=== PATIENT | female | born 1945 | race Caucasian/White ===

== ENCOUNTER → 2017-07-23 | Outpatient (CLI) | payer OTHER, MEDICAID | LOC: FIMAGING 12:26 | PROVIDERS: ATTEND Internal Medicine | DX: Z12.31 Encounter for screening mammogram for malignant neoplasm of breast (principal); M51.36 Other intervertebral disc degeneration, lumbar region; M54.5 Low back pain; G89.4 Chronic pain syndrome | CPT/HCPCS: G0202 ==

== ENCOUNTER 2017-08-24 06:46 | Day surgery (SDC) | payer OTHER, MEDICAID ==
[2017-08-24 07:31] VITALS: PULSE 95
[2017-08-24] MEDS ORDERED: LR 1,000 ML IV ONE (07:31)
--- NOTE | 2017-08-24 07:35 | PDHPUP ---
History & Physical Update H&P update statement: This history and physical update is based on an assessment of the patient which was completed after admission or registration (within 24 hours), but prior to the surgery/procedure. H&P update: H&P reviewed & patient examined, no change in patient's condition since H&P completed
[2017-08-24] MEDS ORDERED: ceFAZolin 2 GM/DEXTROSE 100 ML IV ONE (09:00)
[2017-08-24] MEDS ORDERED: BUPIVACAINE 0.5% 30 ML SDV ONE (10:31)
--- NOTE | 2017-08-24 10:37 | PDANEPAE ---
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 ANE Past Medical History - Cardiovascular History Hx Hypertension: Yes Hx Arrhythmias: No Hx Chest Pain: No Hx Coronary Artery / Peripheral Vascular Disease: No Hx CHF / Valvular Disease: No Hx Palpitations: No Cardiovascular History Comment: no cp - Pulmonary History Hx COPD: No Hx Asthma/Reactive Airway Disease: No Hx Recent Upper Respiratory Infection: No Hx Oxygen in Use at Home: No Hx Sleep Apnea: Yes Pulmonary History Comment: occ sob when walking, DOES SOME STAIRS,. pt has had DVTs in the past,. on ASA to prevent - Neurologic History Hx Cerebrovascular Accident: No Hx Seizures: No Hx Dementia: No - Endocrine History Hx Diabetes: Yes Hypothyroid: No Obesity: moderate Endocrine History Comment: IDDM - Renal History Hx Renal Disorders: Yes Renal History Comment: stones young women. UTIs several years past - Liver History Hx Hepatic Disorders: No - Neurological & Psychiatric Hx Hx Neurological and Psychiatric Disorders: Yes Neurological / Psychiatric History Comment: anxiety, depression - Cancer History Hx Cancer: Yes Cancer History Comment: melanoma currently - Congenital Disorder History Hx Congenital Disorders: No - GI History Hx Gastrointestinal Disorders: Yes Gastrointestinal History Comment: bowel nicked 2013 during hernia surg. per pt. Ended up with colostomy, has been removed - Other Health History Other Health History: mild cataract R eye. no upper teeth, 5 teeth bottom - Chronic Pain History Chronic Pain: Yes (VENTRAL HERNIA) - Surgical History Prior Surgeries: multiple abd/bowel surg. Ileostomy&colostomy done, one bag. tonsils out young child. total hyst. 1986. umbilical and R inguinal hernia surg 04/30/13 leading to bowel issues. ileostomy and colostomy takedown 02/23 ANE Review of Systems Review of Systems: - Exercise capacity METS (RN): 3 METS - Systems Constitutional: Reports: no symptoms Cardiac: Reports: no symptoms, other (has to stop to catch breath when climbing 1 FOS, chronic) Respiratory: Reports: no symptoms ANE Patient History - Allergies Allergies/Adverse Reactions: No Known Allergies Allergy (Verified 08/24/17 07:36) - Home Medications Home medications: home medication list seen and reviewed Home Medications: Aspirin EC 81 mg (OTC) 03/22/16 [Last Taken Unknown] Atorvastatin Calcium 03/22/16 [Last Taken Unknown] Bentyl 20 MG (RX) 03/22/16 [Last Taken Unknown] Qynibbfo-Njlxzetxwxhlc-Gqrv Cp 03/22/16 [Last Taken Unknown] CALCIUM 03/22/16 [Last Taken Unknown] Citalopram 03/22/16 [Last Taken Unknown] Fluticasone Nasal 03/22/16 [Last Taken Unknown] Hydrocodon-Acetaminophen 5-325 03/22/16 [Last Taken Unknown] Hydrocortisone 1% cream (OTC) 03/22/16 [Last Taken Unknown] Levemir 03/22/16 [Last Taken Unknown] Losartan Potassium 03/22/16 [Last Taken Unknown] Meclizine HCl 03/22/16 [Last Taken Unknown] Metformin HCl 03/22/16 [Last Taken Unknown] Propranolol HCl 03/22/16 [Last Taken Unknown] Tylenol 03/22/16 [Last Taken Unknown] VITAMIN D 03/22/16 [Last Taken Unknown] Vitamin B-12 03/22/16 [Last Taken Unknown] traZODONE 03/22/16 [Last Taken Unknown] - NPO status NPO Since - Liquids (Date): 08/23/17 NPO Since - Liquids (Time): 23:00 NPO Since - Solids (Date): 08/23/17 NPO Since - Solids (Time): 23:00 - Anes Hx Anes Hx: no prior problems - Smoking Hx Smoking Status: Never smoked Marijuana use: No - Alcohol Use Alcohol Use: None - Family Anes Hx Family Anes Hx: none Family Hx Anesthesia Complications: none ANE Labs/Vital Signs - Vital Signs Blood Pressure: 161/91 Heart Rate: 95 Respiratory Rate: 14 O2 Sat (%): 96 Height: 144.78 cm Weight: 65.317 kg ANE Physical Exam - Airway Neck exam: FROM Mallampati Score: Class 3 Mouth exam: dentures - Pulmonary Pulmonary: clear to auscultation - Cardiovascular Cardiovascular: regular rate and rhythym - ASA Status ASA Status: III ANE Anesthesia Plan Anesthesia Plan: GA w LMA
[2017-08-24] MEDS ORDERED: DEXAMETHASONE 4 MG/ML VIAL ONE (10:56)
[2017-08-24] MEDS ORDERED: LIDOCAINE 2% 5 ML SDV ONE (10:56)
[2017-08-24] MEDS ORDERED: fentaNYL 100 MCG/2 ML INJ ONE ×2 (10:56→13:19)
[2017-08-24] MEDS ORDERED: PROPOFOL/EMULSION 500 MG/50 ML BOTTLE IV ONE (10:56)
[2017-08-24] MEDS ORDERED: PHENYLEPHRINE HCL 100 MCG/ML SYR ONE (11:37)
[2017-08-24 11:53] LABS: % IMMATURE GRANULYOCYTES 0.4 % (0.0-1.1); ABSOLUTE IMMATURE GRANULOCYTES 0.04 10^3/uL (0.00-0.10); ADD DIFF? NO; ADD MORPH? NO; ADD SCAN? NO; ATYPICAL LYMPHOCYTE FLAG 0 (0-99); FRAGMENT RBC FLAG 0 (0-99); HEMATOCRIT 36.5 % (38.0-47.0); HEMOGLOBIN 12.4 g/dL (12.6-16.3); LEFT SHIFT FLG 0 (0-99); LIPEMIA HEMOLYSIS FLAG 90 (0-99); MEAN CELL HEMOGLOBIN 29.7 pg (27.9-34.1); MEAN CELL VOLUME 87.3 fL (81.5-99.8); MEAN PLATELET VOLUME 10.7 fL (8.7-11.7); PLATELET CLUMPS FLAG 0 (0-99); PLATELET COUNT 259 10^3/uL (150-400); RED BLOOD CELL COUNT 4.18 10^6/uL (4.18-5.33); RED CELL DISTRIBUTION WIDTH 13.5 % (11.5-15.2)
[2017-08-24] MEDS ORDERED: ALBUTEROL 3 ML DEYVIAL IH PRN (12:04)
[2017-08-24] MEDS ORDERED: LR 500 ML IV PRN (12:04)
[2017-08-24] MEDS ORDERED: ACETAMINOPHEN 500 MG TAB PO PRN (12:04)
[2017-08-24] MEDS ORDERED: PROMETHAZINE HCL 25 MG/ML INJ IVP PRN (12:04)
[2017-08-24] MEDS ORDERED: NALOXONE HCL 0.4 MG/ML INJ IVP PRN ×2 (12:04)
[2017-08-24] MEDS ORDERED: HYDROCODONE/APAP 5/325 TAB PO PRN (12:04)
[2017-08-24] MEDS ORDERED: ONDANSETRON 4 MG/2 ML VIAL ONE (12:08)
--- NOTE | 2017-08-24 12:31 | POSTOPPROG ---
Post Op Note Date of Operation: 08/24/17 Surgeon: Evert Gordon Stone Operator: Monet ORTEZ Anesthesiologist: Dr. Stephen Anesthesia: GET(General Endotracheal) Pre-op Diagnosis: Right knee melanoma Post-op Diagnosis: same Indication: melanoma Procedure: Wide excision of right knee melanoma with SLN biopsy Findings: SLN x 2 Inf/Abcess present in the surg proc area at time of surgery?: No Depth: Deep Incisional (Fascial) EBL: Minimal Specimen(s): SLN x2 Right knee melanoma
--- NOTE | 2017-08-24 12:37 | POSTANESTH ---
Post Anesthetic Evaluation Cardiovascular Status: Normal, Stable Respiratory Status: Normal, Stable Level of Consciousness/Mental Status: Can Participate in Eval, Moderately Sleepy Pain Control: Adequate, Prn Tx Ordered Nausea/Vomiting Control: Adequate, Prn Tx Ordered Complications Possibly Related to Anesthesia: None Noted (Pt still sleepy, but able to rouse to name and touch. Denies pain and nausea at this time.)
[2017-08-24 12:42] LABS: ALANINE AMINOTRANSFERASE 30 IU/L (9-52); ALBUMIN 3.3 g/dL (3.5-5.0); ALKALINE PHOSPHATASE 66 IU/L (38-126); ANION GAP 8 mEq/L (8-16); ASPARTATE AMINOTRANSFERASE 27 IU/L (14-46); BILIRUBIN,TOTAL 0.9 mg/dL (0.1-1.4); CALCIUM 9.1 mg/dL (8.5-10.4); CARBON DIOXIDE 24 mEq/l (22-31); CHLORIDE 106 mEq/L (97-110); CREATININE 0.8 mg/dL (0.6-1.0); GLOMERULAR FILTRATION RATE > 60; GLUCOSE 158 mg/dL (70-100); POTASSIUM 4.7 mEq/L (3.5-5.2); SODIUM 138 mEq/L (134-144); TOTAL PROTEIN 5.8 g/dL (6.3-8.2)
[2017-08-24 13:17] VITALS: TEMP 98.1
[2017-08-24] MEDS: fentaNYL 100 MCG/2 ML INJ IVP PRN ×4 (13:23→13:54)
[2017-08-24 13:34] VITALS: BP 112/79; RESP 12
[2017-08-24] MEDS ORDERED: HYDROCODONE/APAP 5/325 TAB ONE (13:54)
[2017-08-24 15:56] VITALS: O2SAT 94
--- NOTE | 2017-08-28 14:29 | GOP ---
[f rep st] OPERATIVE REPORT DATE OF OPERATION: 08/24/2017 SURGEON: Evert Gordon MD SUPERVISOR CUSTOMER COMPLAINT SERVICE: Monet Feliz PA-C ANESTHESIOLOGIST: Merle Stephen MD PREOPERATIVE DIAGNOSIS: Melanoma of the right knee. POSTOPERATIVE DIAGNOSIS: Melanoma of the right knee. PROCEDURE PERFORMED: Wide excision of right knee melanoma with advancement flap closure and sentinel lymph node biopsy. FINDINGS: The patient was found to have some enlarged femoral nodes, but they did not appear to be i nvolved. Final path is pending. DESCRIPTION OF PROCEDURE: The patient was taken to the operating room where she received satisfactor y general endotracheal anesthesia by Dr. Stephen. She was placed in supine position, prepped and talon ped in the usual sterile fashion. Using the gamma probe, the femoral triangle was examined and a sen tinel node was identified. An oblique incision was made over that area. Dissection extended down th rough the subcutaneous tissue, through the superficial fascia. Two large nodes were dissected free, however, they did not appear to be pigmented or involved in any way. Hemostasis was obtained with he moclips and electrocautery and the nodes were both removed and sent to Pathology. The wound was clos ed with 3-0 Vicryl for the subcu, 4-0 Monocryl subcuticular stitch for the skin. The wound was infil trated with 0.5% Marcaine. Elliptical vertical incision was then made over the previous biopsy site. Wide excision was done with over 1.5 cm margin around the melanoma site. Full-thickness excision w as done down to the fascia. The specimen was marked and sent to Pathology. The flaps were mobilized on both sides, advanced and closed with interrupted 2-0 Vicryl sutures for the subcutaneous tissue a nd a 4-0 Monocryl subcuticular stitch for the skin. All layers were infiltrated with 0.5% Marcaine. The wounds were dressed. She tolerated the procedure well; taken to the recovery room in good condi tion. No complications. /[id number]/MODL
== END 2017-08-24 16:55 | disposition home or self-care (01) ==
LOC: FSGY 06:46
PROVIDERS: ATTEND Surgery
PROC: 07BH0ZZ Excision of Right Inguinal Lymphatic, Open Approach (ICD-10-PCS; principal; 2017-08-24 09:45)
PROC: 0HXKXZZ Transfer Right Lower Leg Skin, External Approach (ICD-10-PCS; principal; 2017-08-24 09:45)
PROC: 0HBKXZZ Excision of Right Lower Leg Skin, External Approach (ICD-10-PCS; principal; 2017-08-24 09:45)
PROC: 3E0W3KZ Introduction of Other Diagnostic Substance into Lymphatics, Percutaneous Approach (ICD-10-PCS; 2017-08-24 09:45)
DX: C43.71 Malignant melanoma of right lower limb, including hip (principal); D36.0 Benign neoplasm of lymph nodes; E11.9 Type 2 diabetes mellitus without complications; I10 Essential (primary) hypertension; G47.00 Insomnia, unspecified; F43.21 Adjustment disorder with depressed mood; M51.36 Other intervertebral disc degeneration, lumbar region; G89.4 Chronic pain syndrome; Z79.82 Long term (current) use of aspirin; Z86.718 Personal history of other venous thrombosis and embolism
CPT/HCPCS: 14020; 38500; 78195; A9520; J0690; J1100; J2370; J2405; J2704; J3010

== ENCOUNTER 2017-09-30 19:05 | Inpatient (IN) | payer OTHER, MEDICAID ==
--- NOTE | 2017-09-30 19:14 | EDPHY ---
H & P Time Seen by Provider: 09/30/17 19:05 HPI/ROS: CHIEF COMPLAINT: Abdominal pain, vomiting HISTORY OF PRESENT ILLNESS: The patient presents to the ED with a 1 day history of abdominal pain and vomiting. The patient has a history of multiple abdominal hernia surgeries. She reports history of a hysterectomy. She denies history of appendectomy, cholecystectomy or additional pelvic surgery. The patient did recently undergo a wide excision for a melanoma on her right knee. She reportedly had a lymph node biopsy in her groin which by her report demonstrated no pathologic disease. The patient does have a history of hypertension and diabetes. The patient complains of mild generalized abdominal pain in the ED today which she rates as a 5/10. She reported she had a loose watery bowel movement prior to arrival. The patient denies any fever, cough or congestion. REVIEW OF SYSTEMS: A comprehensive 10 point review of systems is otherwise negative aside from elements mentioned in the history of present illness. Source: Patient Exam Limitations: No limitations - Personal History Tetanus Vaccine Date: 04/28/13 - Medical/Surgical History Hx Asthma: No Hx Chronic Respiratory Disease: No Hx Diabetes: Yes Hx Cardiac Disease: No Hx Renal Disease: Yes Hx Cirrhosis: No Hx Alcoholism: No Hx HIV/AIDS: No Hx Splenectomy or Spleen Trauma: No Other PMH: hernia repair, bowel leak, ileostomy, JORDY, DM - Social History Smoking Status: Never smoked - Physical Exam Exam: General Appearance: Alert, no distress Eyes: Pupils equal and round no pallor or injection ENT, Mouth: Mucous membranes moist Respiratory: There are no retractions, lungs are clear to auscultation Cardiovascular: Regular rate and rhythm Gastrointestinal: Epigastrium and right upper quadrant Neurological: A&O, normal motor function, normal sensory exam, normal cranial nerves Skin: Warm and dry, no rashes Musculoskeletal: Neck is supple nontender Extremities: symmetrical, full range of motion Constitutional: Initial Vital Signs Temperature (C) 36.4 C 09/30/17 19:15 Heart Rate 102 H 09/30/17 19:15 Respiratory Rate 18 09/30/17 19:15 Blood Pressure 121/78 H 09/30/17 19:15 O2 Sat (%) 89 L 09/30/17 19:15 O2 Delivery Mode Room Air O2 (L/minute) 2 Allergies/Adverse Reactions: diphenhydramine [From Benadryl] Allergy (Verified 09/30/17 19:18) Home Medications: Medication Instructions Recorded Acetaminophen [Tylenol 325mg (*)] 325 mg PO Q6HRS PRN 03/22/16 Aspirin EC [Aspirin EC 81 mg (*)] 81 mg PO DAILY 03/22/16 Atorvastatin Calcium [Lipitor 40 40 mg PO HS 03/22/16 mg (*)] Cholecalciferol Vit D3 [Vitamin D3 2,000 units PO DAILY 03/22/16 2000 units tab (OTC)] Fluticasone Nasal [Flonase Nasal 1 sprays NASAL DAILY PRN 03/22/16 Driscoll] Insulin Detemir [Levemir] 10 unit SQ HS 03/22/16 Losartan Potassium [Cozaar 25 mg 25 mg PO DAILY 03/22/16 (*)] Meclizine HCl [Meclizine HCl 25 mg 25 mg PO Q6HRS PRN 03/22/16 (RX,OTC)] Propranolol HCl [Inderal 10mg (*)] 10 mg PO BID 03/22/16 Acetaminophen [Tylenol ES 500 mg 500 mg PO Q6HRS PRN tab 08/24/17 (*)] Herbals/Supplements -Info Only 1 ea PO DAILY 08/24/17 Hydrocodone/APAP 5/325 [Waldron 1 - 2 tab PO Q4HRS PRN tab 08/24/17 5/325 (*)] Loratadine 10 mg PO DAILY PRN 08/24/17 MIRTAZAPINE [Remeron 7.5 mg] 7.5 mg PO HS 08/24/17 Melatonin [Melatonin 3 MG (*)] 3 mg PO HS 08/24/17 Meloxicam 15 mg PO HS 08/24/17 Vitamin B Complex [B Complex] 1 each PO DAILY 08/24/17 metFORMIN HCL [Glucophage 500 mg 500 mg PO BIDMEAL 08/24/17 (*)] traMADol [Ultram 50 mg (*)] 50 mg PO Q4 PRN 08/24/17 Gabapentin 100 mg PO DAILY 09/30/17 Medical Decision Making - Diagnostics Imaging Results: Imaging Impressions Abdomen CT 09/30/17 20:02 Impression: Early versus partial small bowel obstruction, likely related to an adhesion. This patient might benefit from an NG tube. 2. No evidence for metastatic melanoma. 3. Stable polycystic liver disease and less dominant renal cysts since 2013. Results called and discussed with Satnam Albarado, at 09/30/2017 21:04 General information for patients regarding this examination can be found at [email or web address]. If you have questions or comments about this report, please contact me at [phone] (hospital) or [phone] (cell). ED Course/Re-evaluation: The patient presents to the ED with a 1 day history of generalized abdominal pain. The patient has tenderness to palpation in her right lower quadrant, left lower quadrant and hypogastric area. She has normal bowel sounds. She has no peritoneal signs. The patient had an IV established. She received a L of normal saline. She received 4 mg of IV Zofran. Given her agent tenderness, a CT scan of the abdomen pelvis was ordered by myself at 8:[address] scan of the abdomen pelvis does demonstrate an early small-bowel obstruction with a transition point the abdomen. NG tube has been placed. Consultation was made with Dr. Cornejo from the hospitalist service who will admit the patient primarily. Dr. Gonzalez from General surgery will consult. Differential Diagnosis: Differential diagnosis considered includes appendicitis, gastroenteritis, diverticulitis, metastatic disease, perforation, obstruction - Data Points Laboratory Results: Laboratory Results 09/30/17 19:10 09/30/17 19:10 09/30/17 09/30/17 09/30/17 19:40 19:31 19:10 WBC RBC Hgb POC Hgb 15.0 gm/dL gm/dL 15.0 gm/dL gm/dL (12.6-16.3) (12.6-16.3) Hct POC Hct 44 % % 44 % % (38-47) (38-47) MCV MCH MCHC RDW Plt Count MPV Neut % (Auto) Lymph % (Auto) [place] % (Auto) Eos % (Auto) Baso % (Auto) Nucleat RBC Rel Count Absolute Neuts (auto) Absolute Lymphs (auto) Absolute Monos (auto) Absolute Eos (auto) Absolute Basos (auto) Absolute Nucleated RBC Immature Gran % Immature Gran # POC Sodium 141 mEq/L mEq/L 138 mEq/L mEq/L (134-144) (134-144) Sodium 139 mEq/L mEq/L (134-144) POC Potassium 4.1 mEq/L mEq/L 6.4 mEq/L H* mEq/L (3.3-5.0) (3.3-5.0) Potassium 5.0 mEq/L mEq/L (3.5-5.2) POC Chloride 106 mEq/L mEq/L 104 mEq/L mEq/L (97-110) (97-110) Chloride 101 mEq/L mEq/L (97-110) Carbon Dioxide 28 mEq/l mEq/l (22-31) Anion Gap 10 mEq/L mEq/L (8-16) POC BUN 28 mg/dL H mg/dL 46 mg/dL H mg/dL (7-23) (7-23) BUN 27 mg/dL H mg/dL (7-23) Creatinine 0.9 mg/dL mg/dL (0.6-1.0) POC Creatinine 0.8 mg/dL mg/dL 1.0 mg/dL mg/dL (0.6-1.0) (0.6-1.0) Estimated GFR > 60 Glucose 177 mg/dL H mg/dL (70-100) POC Glucose 162 mg/dL H mg/dL 162 mg/dL H mg/dL (70-100) (70-100) Calcium 9.9 mg/dL mg/dL (8.5-10.4) Total Bilirubin 0.8 mg/dL mg/dL (0.1-1.4) Conjugated Bilirubin 0.5 mg/dL mg/dL (0.0-0.5) Unconjugated Bilirubin 0.3 mg/dL mg/dL (0.0-1.1) AST 24 IU/L IU/L (14-46) ALT 37 IU/L IU/L (9-52) Alkaline Phosphatase 95 IU/L IU/L (38-126) Total Protein 7.0 g/dL g/dL (6.3-8.2) Albumin 4.3 g/dL g/dL (3.5-5.0) Lipase 86 IU/L IU/L (23-300) 09/30/17 19:10 WBC 12.54 10^3/uL H 10^3/uL (3.80-9.50) RBC 5.21 10^6/uL 10^6/uL (4.18-5.33) Hgb 14.9 g/dL g/dL (12.6-16.3) POC Hgb Hct 45.6 % % (38.0-47.0) POC Hct MCV 87.5 fL fL (81.5-99.8) MCH 28.6 pg pg (27.9-34.1) MCHC 32.7 g/dL g/dL (32.4-36.7) RDW 13.5 % % (11.5-15.2) Plt Count 319 10^3/uL 10^3/uL (150-400) MPV 11.4 fL fL (8.7-11.7) Neut % (Auto) 88.9 % H % (39.3-74.2) Lymph % (Auto) 5.0 % L % (15.0-45.0) [place] % (Auto) 4.5 % % (4.5-13.0) Eos % (Auto) 0.6 % % (0.6-7.6) Baso % (Auto) 0.6 % % (0.3-1.7) Nucleat RBC Rel Count 0.0 % % (0.0-0.2) Absolute Neuts (auto) 11.14 10^3/uL H 10^3/uL (1.70-6.50) Absolute Lymphs (auto) 0.63 10^3/uL L 10^3/uL (1.00-3.00) Absolute Monos (auto) 0.57 10^3/uL 10^3/uL (0.30-0.80) Absolute Eos (auto) 0.08 10^3/uL 10^3/uL (0.03-0.40) Absolute Basos (auto) 0.07 10^3/uL 10^3/uL (0.02-0.10) Absolute Nucleated RBC 0.00 10^3/uL 10^3/uL (0-0.01) Immature Gran % 0.4 % % (0.0-1.1) Immature Gran # 0.05 10^3/uL 10^3/uL (0.00-0.10) POC Sodium Sodium POC Potassium Potassium POC Chloride Chloride Carbon Dioxide Anion Gap POC BUN BUN Creatinine POC Creatinine Estimated GFR Glucose POC Glucose Calcium Total Bilirubin Conjugated Bilirubin Unconjugated Bilirubin AST ALT Alkaline Phosphatase Total Protein Albumin Lipase Medications Given: Discontinued Medications Sodium Chloride (Ns) 1,000 mls @ 0 mls/hr IV EDNOW ONE; Wide Open PRN Reason: Protocol Stop: 09/30/17 19:37 Last Admin: 09/30/17 20:07 Dose: 1,000 mls Point of Care Test Results: 09/30/17 09/30/17 19:31 19:40 POC Sodium 138 141 POC Potassium 6.4 H* 4.1 POC Chloride 104 106 POC BUN 46 H 28 H POC Creatinine 1.0 0.8 POC Glucose 162 H 162 H Departure - Departure Disposition: [facility] Inpatient Acute Clinical Impression: Abdominal pain, Adynamic ileus Condition: Fair
[2017-09-30] MEDS ORDERED: NS 1,000 ML IV ONE (19:36)
[2017-09-30 19:42] LABS: % IMMATURE GRANULYOCYTES 0.4 % (0.0-1.1); ABSOLUTE IMMATURE GRANULOCYTES 0.05 10^3/uL (0.00-0.10); ADD DIFF? NO; ADD MORPH? NO; ADD SCAN? NO; ATYPICAL LYMPHOCYTE FLAG 0 (0-99); FRAGMENT RBC FLAG 0 (0-99); HEMATOCRIT 45.6 % (38.0-47.0); HEMOGLOBIN 14.9 g/dL (12.6-16.3); LEFT SHIFT FLG 10 (0-99); LIPEMIA HEMOLYSIS FLAG 80 (0-99); MEAN CELL HEMOGLOBIN 28.6 pg (27.9-34.1); MEAN CELL HEMOGLOBIN CONCENTR. 32.7 g/dL (32.4-36.7); MEAN CELL VOLUME 87.5 fL (81.5-99.8); MEAN PLATELET VOLUME 11.4 fL (8.7-11.7); PLATELET CLUMPS FLAG 10 (0-99); PLATELET COUNT 319 10^3/uL (150-400); RED BLOOD CELL COUNT 5.21 10^6/uL (4.18-5.33); RED CELL DISTRIBUTION WIDTH 13.5 % (11.5-15.2)
[2017-09-30 19:51] LABS: ALANINE AMINOTRANSFERASE 37 IU/L (9-52); ALBUMIN 4.3 g/dL (3.5-5.0); ALKALINE PHOSPHATASE 95 IU/L (38-126); ANION GAP 10 mEq/L (8-16); ASPARTATE AMINOTRANSFERASE 24 IU/L (14-46); BILIRUBIN,TOTAL 0.8 mg/dL (0.1-1.4); BILIRUBIN-CONJUGATED 0.5 mg/dL (0.0-0.5); BILIRUBIN-UNCONJUGATED 0.3 mg/dL (0.0-1.1); CALCIUM 9.9 mg/dL (8.5-10.4); CARBON DIOXIDE 28 mEq/l (22-31); CHLORIDE 101 mEq/L (97-110); CREATININE 0.9 mg/dL (0.6-1.0); GLOMERULAR FILTRATION RATE > 60; GLUCOSE 177 mg/dL (70-100); SODIUM 139 mEq/L (134-144)
[2017-09-30] MEDS ORDERED: IOPAMIDOL (ISOVUE-300) 100 ML BTL ONE ×2 (20:04→20:19)
[2017-09-30] MEDS ORDERED: HYDROmorphONE/DILAUDID 1 MG/ML INJ IVP PRN (21:09)
[2017-09-30] MEDS ORDERED: ONDANSETRON DISINTEGRATING 4 MG TAB PO PRN (21:09)
[2017-09-30] MEDS ORDERED: PROMETHAZINE HCL 25 MG/ML INJ IVP PRN (21:09)
[2017-09-30] MEDS ORDERED: ONDANSETRON 4 MG/2 ML VIAL IVP PRN (21:09)
[2017-09-30] MEDS ORDERED: LIDOCAINE 2% JELLY 5 ML TUBE ONE (21:14)
[2017-09-30] MEDS ORDERED: D50W 25 GM/50 ML SYR IVP PRN (21:41)
--- NOTE | 2017-09-30 21:45 | PDGENHP ---
History and Physical - Chief Complaint Acute abdominal pain - History of Present Illness Primary care provider: Dr. Divine Barillas Primary general surgeon: Dr. SPENCER Gordon HPI: 72-year-old female presenting with acute abdominal pain characterized as a 5/10 pain located diffusely throughout her abdomen, initially starting in the upper abdomen and then radiating inferiorly, associated with distension, vomiting of clear liquid, onset of symptoms on the morning of this presentation and duration persistent thereafter. The patient reports that since her symptoms began, she has been unable to tolerate solids and liquids. She did have 1 liquid stool on the day of this presentation, it was nonbloody, nonmelanotic. Prior to her onset of symptoms, she had otherwise been feeling well. She took her home medications the morning of this presentation, which included metformin, gabapentin, tramadol for her back pain. She reports that the pain is exacerbated by palpation, mildly alleviated by remaining still. History Information - Allergies/Home Medication List Allergies/Adverse Reactions: diphenhydramine [From Benadryl] Allergy (Verified 09/30/17 19:18) Home Medications: Acetaminophen [Tylenol 325mg (*)] 325 mg PO Q6HRS PRN 03/22/16 [Last Taken Unknown] Aspirin EC [Aspirin EC 81 mg (*)] 81 mg PO DAILY 03/22/16 [Last Taken 08/24/17] Atorvastatin Calcium [Lipitor 40 mg (*)] 40 mg PO HS 03/22/16 [Last Taken ] Cholecalciferol Vit D3 [Vitamin D3 2000 units tab (OTC)] 2,000 units PO DAILY [Last Taken 08/24/17] Fluticasone Nasal [Flonase Nasal [place]] 1 sprays NASAL DAILY PRN 03/22/16 [Last Taken Unknown] Insulin Detemir [Levemir] 10 unit SQ HS 03/22/16 [Last Taken 08/23/17 21:00 t-1] Losartan Potassium [Cozaar 25 mg (*)] 25 mg PO DAILY 03/22/16 [Last Taken 08:00] Meclizine HCl [Meclizine HCl 25 mg (RX,OTC)] 25 mg PO Q6HRS PRN 03/22/16 [Last Taken 08/23/17] Propranolol HCl [Inderal 10mg (*)] 10 mg PO BID 03/22/16 [Last Taken 08/24/17] Herbals/Supplements -Info Only 1 ea PO DAILY 08/24/17 [Last Taken Unknown] Loratadine 10 mg PO DAILY PRN 08/24/17 [Last Taken Unknown] MIRTAZAPINE [Remeron 7.5 mg] 7.5 mg PO HS 08/24/17 [Last Taken 08/23/17] Melatonin [Melatonin 3 MG (*)] 3 mg PO HS 08/24/17 [Last Taken 08/23/17] Meloxicam 15 mg PO HS 08/24/17 [Last Taken 08/23/17] Vitamin B Complex [B Complex] 1 each PO DAILY 08/24/17 [Last Taken 08/24/17] metFORMIN HCL [Glucophage 500 mg (*)] 500 mg PO BIDMEAL 08/24/17 [Last Taken ] traMADol [Ultram 50 mg (*)] 50 mg PO Q4 PRN 08/24/17 [Last Taken 08/23/17] Gabapentin 100 mg PO DAILY 09/30/17 [Last Taken Unknown] I have personally reviewed and updated: family history, medical history, social history, surgical history - Past Medical History Additional medical history: Melanoma right knee. Hypertension. Diabetes. Recurrent ventral hernias. Depression and insomnia - Surgical History Additional surgical history: Numerous ventral hernia repairs with resultant colostomy, ileostomy, reversal in 2013 - Family History Additional family history: Sibling with CVA - Social History Smoking Status: Never smoked Alcohol Use: None Drug Use: None Additional social history: Resides at [facility] Review of Systems Review of Systems: ROS: 10pt was reviewed & negative except for what was stated in HPI & below Gastrointestinal: Reports: vomitting, abdominal pain, nausea Physical Exam Physical Exam: Temp Pulse Resp BP Pulse Ox 36.4 C 102 H 18 121/78 H 93 09/30/17 19:15 09/30/17 19:15 09/30/17 19:15 09/30/17 19:15 09/30/17 19:38 Constitutional: no apparent distress, obese, uncomfortable, No not in pain ( Mild pain) Eyes: PERRL, anicteric sclera, EOMI Ears, Nose, Mouth, Throat: hearing normal, other (Tacky mucous membranes) Cardiovascular: tachycardia, No systolic murmur, No irregularly irregular, No edema Respiratory: no respiratory distress, no rales or rhonchi, clear to auscultation Gastrointestinal: normoactive bowel sounds, tenderness (Moderate diffusely throughout), guarding, distension (Moderate) Skin: warm, normal color, No rash Neurologic: AAOx3, sensation intact bilaterally, No weakness (Motor 5/5 bilateral lower extremities) Psychiatric: interacting appropriately, not anxious, not encephalopathic, thought process linear Lab Data & Imaging Review 09/30/17 19:10 09/30/17 19:10 WBC 12.54 10^3/uL (3.80-9.50) H 09/30/17 19:10 RBC 5.21 10^6/uL (4.18-5.33) 09/30/17 19:10 Hgb 14.9 g/dL (12.6-16.3) 09/30/17 19:10 POC Hgb 15.0 gm/dL (12.6-16.3) 09/30/17 19:40 Hct 45.6 % (38.0-47.0) 09/30/17 19:10 POC Hct 44 % (38-47) 09/30/17 19:40 MCV 87.5 fL (81.5-99.8) 09/30/17 19:10 MCH 28.6 pg (27.9-34.1) 09/30/17 19:10 MCHC 32.7 g/dL (32.4-36.7) 09/30/17 19:10 RDW 13.5 % (11.5-15.2) 09/30/17 19:10 Plt Count 319 10^3/uL (150-400) 09/30/17 19:10 MPV 11.4 fL (8.7-11.7) 09/30/17 19:10 Neut % (Auto) 88.9 % (39.3-74.2) H 09/30/17 19:10 Lymph % (Auto) 5.0 % (15.0-45.0) L 09/30/17 19:10 [place] % (Auto) 4.5 % (4.5-13.0) 09/30/17 19:10 Eos % (Auto) 0.6 % (0.6-7.6) 09/30/17 19:10 Baso % (Auto) 0.6 % (0.3-1.7) 09/30/17 19:10 Nucleat RBC Rel Count 0.0 % (0.0-0.2) 09/30/17 19:10 Absolute Neuts (auto) 11.14 10^3/uL (1.70-6.50) H 09/30/17 19:10 Absolute Lymphs (auto) 0.63 10^3/uL (1.00-3.00) L 09/30/17 19:10 Absolute Monos (auto) 0.57 10^3/uL (0.30-0.80) 09/30/17 19:10 Absolute Eos (auto) 0.08 10^3/uL (0.03-0.40) 09/30/17 19:10 Absolute Basos (auto) 0.07 10^3/uL (0.02-0.10) 09/30/17 19:10 Absolute Nucleated RBC 0.00 10^3/uL (0-0.01) 09/30/17 19:10 Immature Gran % 0.4 % (0.0-1.1) 09/30/17 19:10 Immature Gran # 0.05 10^3/uL (0.00-0.10) 09/30/17 19:10 POC Sodium 141 mEq/L (134-144) 09/30/17 19:40 Sodium 139 mEq/L (134-144) 09/30/17 19:10 POC Potassium 4.1 mEq/L (3.3-5.0) 09/30/17 19:40 Potassium 5.0 mEq/L (3.5-5.2) 09/30/17 19:10 POC Chloride 106 mEq/L (97-110) 09/30/17 19:40 Chloride 101 mEq/L (97-110) 09/30/17 19:10 Carbon Dioxide 28 mEq/l (22-31) 09/30/17 19:10 Anion Gap 10 mEq/L (8-16) 09/30/17 19:10 POC BUN 28 mg/dL (7-23) H 09/30/17 19:40 BUN 27 mg/dL (7-23) H 09/30/17 19:10 Creatinine 0.9 mg/dL (0.6-1.0) 09/30/17 19:10 POC Creatinine 0.8 mg/dL (0.6-1.0) 09/30/17 19:40 Estimated GFR > 60 09/30/17 19:10 Glucose 177 mg/dL (70-100) H 09/30/17 19:10 POC Glucose 162 mg/dL (70-100) H 09/30/17 19:40 Calcium 9.9 mg/dL (8.5-10.4) 09/30/17 19:10 Total Bilirubin 0.8 mg/dL (0.1-1.4) 09/30/17 19:10 Conjugated Bilirubin 0.5 mg/dL (0.0-0.5) 09/30/17 19:10 Unconjugated Bilirubin 0.3 mg/dL (0.0-1.1) 09/30/17 19:10 AST 24 IU/L (14-46) 09/30/17 19:10 ALT 37 IU/L (9-52) 09/30/17 19:10 Alkaline Phosphatase 95 IU/L (38-126) 09/30/17 19:10 Total Protein 7.0 g/dL (6.3-8.2) 09/30/17 19:10 Albumin 4.3 g/dL (3.5-5.0) 09/30/17 19:10 Lipase 86 IU/L (23-300) 09/30/17 19:10 Visualized and Interpreted imaging results: Yes Interpretation: Abdominal CT demonstrating early small-bowel obstruction with transition point in the left abdomen, polycystic liver Assessment & Plan Assessment: 72-year-old female presenting with acute small bowel obstruction Plan: 1. Small bowel obstruction. Acute, new problem this provider, further workup will be indicated. Present on abdominal CT, consistent with her abdominal presenting symptoms and physical exam findings, most likely secondary to adhesions with her numerous previous ventral hernia repair surgeries -discussed with Dr. Bhavesh Gonzalez in the emergency department, he recommends NG tube placement, remain NPO, will hold on surgery at this juncture and gauge clinical progress -IV pain medications, supportive IV antiemetics, continue IV fluids -monitor serum electrolytes and renal function 2. Diabetes mellitus type 2. Patient took metformin this morning, hold further metformin, hold Levemir given her oral diet is uncertain this time -low-dose insulin sliding scale with q.6 hours glucose checks 3. Hypertension. Chronic, hold patient's ARB and propranolol given that she currently has no oral intake 4. Systemic inflammatory response syndrome. Tachycardic and leukocytosis, secondary to stress demargination in the setting of above, no indication of infection -leukocytosis most likely secondary to stress response in the setting of pain, reviewed outside records including 08/24/2017 most recent CBC demonstrating a white blood cell count of 8900, indicating the patient does not have chronic leukocytosis outside of acute episodes of care -continue to monitor CBC 5. Depression and insomnia. Reviewed outside records including 08/01/[address] Divine Barillas, she describes patient's recent transition from citalopram and trazodone to mirtazapine, patient currently on 15 mg from an initial dose of 7.5, tolerating well -will be holding mirtazapine tonight given NPO status, reinitiate as soon as possible Diet. NPO, IV fluids Prophylaxis. High risk patient, SCDs, hold pharm given potential of surgery Code. Full per patient, her cousin Briseida Zhou is her MD POA Disposition. Anticipated discharge uncertain this time, anticipated length stay greater than 48 hours for reasonable medical necessity including acute small bowel obstruction requiring NPO status, IV fluids, nasogastric tube, IV pain and antiemetic medications.
[2017-09-30] MEDS ORDERED: LIDOCAINE 2% JELLY 5 ML TUBE TP ONE (21:47)
[2017-09-30] MEDS ORDERED: HYDROmorphONE/DILAUDID 1 MG/ML INJ IVP ONE (21:48)
--- NOTE | 2017-09-30 21:55 | PDGENHP ---
History and Physical - Chief Complaint abdominal pain with vomiting - History of Present Illness 72yo female well known to my partner Dr Gordon presents with acute onset abdominal pain since 1630 today. Patient was in her usual state of health, awoke , ate breakfast and lunch without issue and at the above time began to have progressive, colicky abdominal pain which was accompanied by nausea and vomiting. Because of the precipitous nature of events, she presented here for workup. Currently, she endorses pain but less so than previous. She doesnt feel nauseated and she denies fevers or chills. History Information - Allergies/Home Medication List Allergies/Adverse Reactions: diphenhydramine [From Benadryl] Allergy (Verified 09/30/17 19:18) Home Medications: Acetaminophen [Tylenol 325mg (*)] 325 mg PO Q6HRS PRN 03/22/16 [Last Taken Unknown] Aspirin EC [Aspirin EC 81 mg (*)] 81 mg PO DAILY 03/22/16 [Last Taken 08/24/17] Atorvastatin Calcium [Lipitor 40 mg (*)] 40 mg PO HS 03/22/16 [Last Taken ] Cholecalciferol Vit D3 [Vitamin D3 2000 units tab (OTC)] 2,000 units PO DAILY [Last Taken 08/24/17] Fluticasone Nasal [Flonase Nasal [place]] 1 sprays NASAL DAILY PRN 03/22/16 [Last Taken Unknown] Insulin Detemir [Levemir] 10 unit SQ HS 03/22/16 [Last Taken 08/23/17 21:00 t-1] Losartan Potassium [Cozaar 25 mg (*)] 25 mg PO DAILY 03/22/16 [Last Taken 08:00] Meclizine HCl [Meclizine HCl 25 mg (RX,OTC)] 25 mg PO Q6HRS PRN 03/22/16 [Last Taken 08/23/17] Propranolol HCl [Inderal 10mg (*)] 10 mg PO BID 03/22/16 [Last Taken 08/24/17] Herbals/Supplements -Info Only 1 ea PO DAILY 08/24/17 [Last Taken Unknown] Loratadine 10 mg PO DAILY PRN 08/24/17 [Last Taken Unknown] MIRTAZAPINE [Remeron 7.5 mg] 7.5 mg PO HS 08/24/17 [Last Taken 08/23/17] Melatonin [Melatonin 3 MG (*)] 3 mg PO HS 08/24/17 [Last Taken 08/23/17] Meloxicam 15 mg PO HS 08/24/17 [Last Taken 08/23/17] Vitamin B Complex [B Complex] 1 each PO DAILY 08/24/17 [Last Taken 08/24/17] metFORMIN HCL [Glucophage 500 mg (*)] 500 mg PO BIDMEAL 08/24/17 [Last Taken ] traMADol [Ultram 50 mg (*)] 50 mg PO Q4 PRN 08/24/17 [Last Taken 08/23/17] Gabapentin 100 mg PO DAILY 09/30/17 [Last Taken Unknown] I have personally reviewed and updated: family history, medical history, social history, surgical history - Past Medical History Additional medical history: Melanoma right knee. Hypertension. Diabetes. Recurrent ventral hernias. Depression and insomnia - Surgical History Additional surgical history: Numerous ventral hernia repairs with resultant colostomy, ileostomy, reversal in 2013 - Family History Additional family history: Sibling with CVA - Social History Smoking Status: Never smoked Alcohol Use: None Drug Use: None Additional social history: Resides at [facility] Review of Systems Review of Systems: ROS: 10pt was reviewed & negative except for what was stated in HPI & below Physical Exam Physical Exam: Temp Pulse Resp BP Pulse Ox 36.4 C 102 H 18 121/78 H 93 09/30/17 19:15 09/30/17 19:15 09/30/17 19:15 09/30/17 19:15 09/30/17 19:38 Constitutional: no apparent distress, appears nourished, not in pain Eyes: PERRL, anicteric sclera, EOMI Ears, Nose, Mouth, Throat: moist mucous membranes, hearing normal, ears appear normal, no oral mucosal ulcers Cardiovascular: regular rate and rhythym, no murmur, rub, or gallop, No edema Respiratory: no respiratory distress, no rales or rhonchi, clear to auscultation Gastrointestinal: other (minimally distended, has hypoactive bowel sounds, many abdominal scars. No rebound or scarring ) Genitourinary: no bladder fullness, no bladder tenderness Skin: warm, normal color, no rashes or abrasions, no fluctuance, no induration, No mottled Musculoskeletal: full muscle strength, no muscle tenderness, normal joint ROM, no joint effusions Neurologic: AAOx3, sensation intact bilaterally, No weakness, No numbness Psychiatric: interacting appropriately, not anxious, not encephalopathic, thought process linear Lymph, Heme, Immunologic: no cervical LAD, no supraclavicular LAD Lab Data & Imaging Review 09/30/17 19:10 09/30/17 19:10 WBC 12.54 10^3/uL (3.80-9.50) H 09/30/17 19:10 RBC 5.21 10^6/uL (4.18-5.33) 09/30/17 19:10 Hgb 14.9 g/dL (12.6-16.3) 09/30/17 19:10 POC Hgb 15.0 gm/dL (12.6-16.3) 09/30/17 19:40 Hct 45.6 % (38.0-47.0) 09/30/17 19:10 POC Hct 44 % (38-47) 09/30/17 19:40 MCV 87.5 fL (81.5-99.8) 09/30/17 19:10 MCH 28.6 pg (27.9-34.1) 09/30/17 19:10 MCHC 32.7 g/dL (32.4-36.7) 09/30/17 19:10 RDW 13.5 % (11.5-15.2) 09/30/17 19:10 Plt Count 319 10^3/uL (150-400) 09/30/17 19:10 MPV 11.4 fL (8.7-11.7) 09/30/17 19:10 Neut % (Auto) 88.9 % (39.3-74.2) H 09/30/17 19:10 Lymph % (Auto) 5.0 % (15.0-45.0) L 09/30/17 19:10 [place] % (Auto) 4.5 % (4.5-13.0) 09/30/17 19:10 Eos % (Auto) 0.6 % (0.6-7.6) 09/30/17 19:10 Baso % (Auto) 0.6 % (0.3-1.7) 09/30/17 19:10 Nucleat RBC Rel Count 0.0 % (0.0-0.2) 09/30/17 19:10 Absolute Neuts (auto) 11.14 10^3/uL (1.70-6.50) H 09/30/17 19:10 Absolute Lymphs (auto) 0.63 10^3/uL (1.00-3.00) L 09/30/17 19:10 Absolute Monos (auto) 0.57 10^3/uL (0.30-0.80) 09/30/17 19:10 Absolute Eos (auto) 0.08 10^3/uL (0.03-0.40) 09/30/17 19:10 Absolute Basos (auto) 0.07 10^3/uL (0.02-0.10) 09/30/17 19:10 Absolute Nucleated RBC 0.00 10^3/uL (0-0.01) 09/30/17 19:10 Immature Gran % 0.4 % (0.0-1.1) 09/30/17 19:10 Immature Gran # 0.05 10^3/uL (0.00-0.10) 09/30/17 19:10 POC Sodium 141 mEq/L (134-144) 09/30/17 19:40 Sodium 139 mEq/L (134-144) 09/30/17 19:10 POC Potassium 4.1 mEq/L (3.3-5.0) 09/30/17 19:40 Potassium 5.0 mEq/L (3.5-5.2) 09/30/17 19:10 POC Chloride 106 mEq/L (97-110) 09/30/17 19:40 Chloride 101 mEq/L (97-110) 09/30/17 19:10 Carbon Dioxide 28 mEq/l (22-31) 09/30/17 19:10 Anion Gap 10 mEq/L (8-16) 09/30/17 19:10 POC BUN 28 mg/dL (7-23) H 09/30/17 19:40 BUN 27 mg/dL (7-23) H 09/30/17 19:10 Creatinine 0.9 mg/dL (0.6-1.0) 09/30/17 19:10 POC Creatinine 0.8 mg/dL (0.6-1.0) 09/30/17 19:40 Estimated GFR > 60 09/30/17 19:10 Glucose 177 mg/dL (70-100) H 09/30/17 19:10 POC Glucose 162 mg/dL (70-100) H 09/30/17 19:40 Calcium 9.9 mg/dL (8.5-10.4) 09/30/17 19:10 Total Bilirubin 0.8 mg/dL (0.1-1.4) 09/30/17 19:10 Conjugated Bilirubin 0.5 mg/dL (0.0-0.5) 09/30/17 19:10 Unconjugated Bilirubin 0.3 mg/dL (0.0-1.1) 09/30/17 19:10 AST 24 IU/L (14-46) 09/30/17 19:10 ALT 37 IU/L (9-52) 09/30/17 19:10 Alkaline Phosphatase 95 IU/L (38-126) 09/30/17 19:10 Total Protein 7.0 g/dL (6.3-8.2) 09/30/17 19:10 Albumin 4.3 g/dL (3.5-5.0) 09/30/17 19:10 Lipase 86 IU/L (23-300) 09/30/17 19:10 Visualized and Interpreted imaging results: Yes Interpretation: CT: couple of fluid filled, dilated loops, no free air or fluid. Stomach with decent amt of fluid in it. Assessment & Plan Assessment: Abdominal pain (Acute) Adynamic ileus (Acute) Plan: 72yo female with many previous abdominal surgeries with what appears to be early partial SBO - Discussed the natural course of bowel obstruction with the patient. She is hesitant to agree to NGT but understands that it will help and is in favor. Im hoping hydration and GI decompression will be successful as the patient likely has hostile abdomen given her many previous, difficult surgeries. Will discuss with Dr Gordon tomorrow.
[2017-09-30 22:24] LABS: COLOR YELLOW; LEUKOCYTE ESTERASE,URINE NEGATIVE (NEGATIVE); NITRITE,URINE NEGATIVE (NEGATIVE)
[2017-09-30] MEDS ORDERED: FLUTICASONE NASAL 120 SPRAYS/16 GM MDI EACHNARE PRN (22:36)
[2017-09-30] MEDS: NS 1,000 ML IV SCH (23:31)
[2017-10-01] MEDS: INSULIN REGULAR HUMAN 100 UNIT/ML SC SCH ×4 (01:19→17:51)
[2017-10-01 05:09] LABS: % IMMATURE GRANULYOCYTES 0.3 % (0.0-1.1); ABSOLUTE IMMATURE GRANULOCYTES 0.03 10^3/uL (0.00-0.10); ADD DIFF? NO; ADD MORPH? NO; ADD SCAN? NO; ATYPICAL LYMPHOCYTE FLAG 0 (0-99); FRAGMENT RBC FLAG 0 (0-99); HEMATOCRIT 34.3 % (38.0-47.0); HEMOGLOBIN 11.8 g/dL (12.6-16.3); LEFT SHIFT FLG 30 (0-99); LIPEMIA HEMOLYSIS FLAG 90 (0-99); MEAN CELL HEMOGLOBIN 29.6 pg (27.9-34.1); MEAN CELL HEMOGLOBIN CONCENTR. 34.4 g/dL (32.4-36.7); MEAN PLATELET VOLUME 10.7 fL (8.7-11.7); PLATELET CLUMPS FLAG 10 (0-99); PLATELET COUNT 223 10^3/uL (150-400); RED BLOOD CELL COUNT 3.99 10^6/uL (4.18-5.33); RED CELL DISTRIBUTION WIDTH 13.7 % (11.5-15.2)
[2017-10-01 05:28] LABS: ANION GAP 7 mEq/L (8-16); CALCIUM 8.2 mg/dL (8.5-10.4); CARBON DIOXIDE 27 mEq/l (22-31); CHLORIDE 109 mEq/L (97-110); CREATININE 0.7 mg/dL (0.6-1.0); GLOMERULAR FILTRATION RATE > 60; GLUCOSE 97 mg/dL (70-100); MAGNESIUM 1.5 mg/dL (1.6-2.3); POTASSIUM 4.3 mEq/L (3.5-5.2); SODIUM 143 mEq/L (134-144)
[2017-10-01] MEDS: ACETAMINOPHEN 650 MG SUPP PR PRN ×3 (06:28→21:17)
--- NOTE | 2017-10-01 09:13 | SOAPPROG ---
SOAP Progress Note Assessment/Plan: Assessment: PT WITH POSSIBLE SBO IMPROVED WITH NG ABD SOFT, NONTENDER WITH MULTIPLE SURGICAL SCARS BUT NO HERNIAS/ + BS, - FLATUS NG OUTPUT MODERATE Plan:CONTINUE OBS, NG IVs, FU 2-WAY 10/01/17 09:11 Objective: Vital Signs Temp Pulse Resp BP Pulse Ox 36.9 C 94 18 117/74 97 10/01/17 07:23 10/01/17 07:23 10/01/17 07:23 10/01/17 07:23 10/01/17 07:23 Laboratory Results 10/01/17 04:57 10/01/17 04:57 09/30/17 10/01/17 10/02/17 05:59 05:59 05:59 Intake Total 1000 656 Output Total 475 125 Balance 525 531 ICD10 Worksheet Patient Problems: Problems Problem Status Onset Abdominal pain Acute Adynamic ileus Acute Diabetes Acute Headache Acute
[2017-10-01] MEDS: NS 1,000 ML IV SCH (09:16)
[2017-10-01] MEDS: PROPRANOLOL HCL 10 MG TAB PO SCH (09:20)
--- NOTE | 2017-10-01 09:59 | PDMN ---
Medical Necessity Medical necessity: Patient meets INPT criteria per physician note and MCG M- 210 Intestinal Obstruction (presents w/acute abd pain, abd distention, vomiting ; early SBO on CT; surgical consult; anticipated LOS > 2 midnights for bowel rest/NG tube/IV hydration/IV antiemetics and pain control as needed.)
[2017-10-01] MEDS ORDERED: D10W 250 ML PRN HYPOGLYCEMIA IV (10:00)
[2017-10-01] MEDS: AZITHROMYCIN IV 500 MG in D5W 250 ML IV SCH (13:27)
[2017-10-01] MEDS: METOCLOPRAMIDE 10 MG/2 ML VIAL IVP PRN ×2 (14:30→21:13)
--- NOTE | 2017-10-01 15:04 | ASMTCMCOM ---
CM Note CM Note Notes: Pt resides at [facility], [facility] will need to complete on-site assessment in order to approve her return, [facility] contact is Kayla [phone]. CM to follow. Date Signed: 10/01/2017 03:03 PM Electronically Signed By:MEIR Conn
[2017-10-01] MEDS ORDERED: TEARS/DEXTRAN 70/HYPROMELLOSE 15 ML OPHT.BTL EACHEYE PRN (15:36)
--- NOTE | 2017-10-01 17:29 | HOSPPROG ---
Hospitalist Progress Note Assessment/Plan: # Small bowel obstruction. Acute, abdominal CT, (persoanlly reviewed and interpreted) confirm SBO - pain improved overnight with NGT - cont NGT - abd xray - cont IVF and NPO - cont IV pain meds - Dr. Gordon following for decisions regarding OR # ? pulmonary infiltrates on abd xray - pt with cough prior to presentation- oxygen saturations 95% on 3L - start empiric abx - PA/lateral CXR to assist with duration of treatment # Diabetes mellitus type 2. -hold Levemir given her oral diet is uncertain this time -low-dose insulin sliding scale with q.6 hours glucose checks # Hypertension. Chronic, hold patient's ARB and propranolol given that she currently has no oral intake # Systemic inflammatory response syndrome.- improved with IVF and pain meds -leukocytosis most likely secondary to stress response in the setting of pain,- query whether realted to pulmonary finding on abd xray - repeat CXR # Depression and insomnia-l -will be holding mirtazapine given NPO status, reinitiate as soon as possible Diet. NPO, IV fluids Prophylaxis. High risk patient, SCDs, hold pharm given potential of surgery Code. Full per patient, her cousin Briseida Zhou is her MD POA Dispo - anticipated length stay greater than 48 hours for reasonable medical necessity including acute small bowel obstruction requiring NPO status, IV fluids, nasogastric tube, IV pain and antiemetic medications. I have discussed the case with Dr. Gordon he will follow abd film and make recs regarding OR Subjective: very worried about returning to OR Objective: Vital Signs Temp Pulse Resp BP Pulse Ox 36.8 C 106 H 16 126/78 H 91 L 10/01/17 15:11 10/01/17 15:11 10/01/17 15:11 10/01/17 15:11 10/01/17 15:11 Laboratory Results 10/01/17 04:57 10/01/17 04:57 09/30/17 10/01/17 10/02/17 05:59 05:59 05:59 Intake Total 1000 656 Output Total 475 125 Balance 525 531 - Physical Exam Constitutional: no apparent distress Ears, Nose, Mouth, Throat: other (NGT) Cardiovascular: regular rate and rhythym Respiratory: no respiratory distress Gastrointestinal: normoactive bowel sounds, tenderness, No guarding, No rebound Genitourinary: no bladder fullness Skin: warm Musculoskeletal: No asymmetric calves Neurologic: AAOx3 Psychiatric: interacting appropriately Lymph, Heme, Immunologic: no cervical LAD ICD10 Worksheet Patient Problems: Problems Problem Status Onset Abdominal pain Acute Adynamic ileus Acute Diabetes Acute Headache Acute
[2017-10-01] MEDS: PHENOL 177 ML THROAT SPRAY PO PRN ×3 (18:13→22:19)
[2017-10-01] MEDS: CEPACOL LOZENGE PO PRN ×2 (18:13→22:22)
[2017-10-01] MEDS: GABAPENTIN 300 MG CAP PO SCH (21:08)
[2017-10-01] MEDS: MIRTAZAPINE 15 MG TAB PO SCH (21:08)
[2017-10-02] MEDS: NS 1,000 ML IV SCH ×2 (00:30→17:51)
[2017-10-02] MEDS: PHENOL 177 ML THROAT SPRAY PO PRN ×4 (00:33→18:54)
[2017-10-02] MEDS: INSULIN REGULAR HUMAN 100 UNIT/ML SC SCH ×4 (01:03→17:51)
[2017-10-02] MEDS: CEPACOL LOZENGE PO PRN ×4 (05:10→18:54)
[2017-10-02 05:22] LABS: % IMMATURE GRANULYOCYTES 0.6 % (0.0-1.1); ABSOLUTE IMMATURE GRANULOCYTES 0.06 10^3/uL (0.00-0.10); ADD DIFF? NO; ADD MORPH? NO; ADD SCAN? NO; ATYPICAL LYMPHOCYTE FLAG 0 (0-99); FRAGMENT RBC FLAG 0 (0-99); HEMATOCRIT 35.3 % (38.0-47.0); HEMOGLOBIN 11.9 g/dL (12.6-16.3); LEFT SHIFT FLG 0 (0-99); LIPEMIA HEMOLYSIS FLAG 80 (0-99); MEAN CELL HEMOGLOBIN 28.9 pg (27.9-34.1); MEAN CELL HEMOGLOBIN CONCENTR. 33.7 g/dL (32.4-36.7); MEAN CELL VOLUME 85.7 fL (81.5-99.8); MEAN PLATELET VOLUME 11.1 fL (8.7-11.7); PLATELET CLUMPS FLAG 0 (0-99); PLATELET COUNT 252 10^3/uL (150-400); RED BLOOD CELL COUNT 4.12 10^6/uL (4.18-5.33); RED CELL DISTRIBUTION WIDTH 13.8 % (11.5-15.2)
[2017-10-02] MEDS: METOCLOPRAMIDE 10 MG/2 ML VIAL IVP PRN (05:36)
[2017-10-02 05:46] LABS: ANION GAP 12 mEq/L (8-16); CALCIUM 8.3 mg/dL (8.5-10.4); CARBON DIOXIDE 24 mEq/l (22-31); CHLORIDE 105 mEq/L (97-110); CREATININE 0.7 mg/dL (0.6-1.0); GLOMERULAR FILTRATION RATE > 60; GLUCOSE 114 mg/dL (70-100); MAGNESIUM 1.7 mg/dL (1.6-2.3); POTASSIUM 3.8 mEq/L (3.5-5.2); SODIUM 141 mEq/L (134-144)
[2017-10-02] MEDS: AZITHROMYCIN IV 500 MG in D5W 250 ML IV SCH (09:09)
[2017-10-02] MEDS: PROPRANOLOL HCL 10 MG TAB PO SCH (09:11)
--- NOTE | 2017-10-02 10:02 | SOAPPROG ---
SOAP Progress Note Assessment/Plan: Assessment/Plan: 72 Y F hx multiple abdominal surgeries. admitted c SBO. Clinically improving--+soft formed brown BMs x 2. No pain. No n/v. NG output 500cc overnight, a little high. Will get AXR today. If improved then plan to d/c NGT and start clears. D/w'ed Drs. Gordon and Aliya. S: see above O: alert, nad ng in place no wob rrr abd +BS, soft, NT 10/02/17 10:00 Objective: Vital Signs Temp Pulse Resp BP Pulse Ox 37.0 C 104 H 16 150/93 H 95 10/02/17 07:22 10/02/17 07:22 10/02/17 07:22 10/02/17 07:22 10/02/17 07:22 Microbiology 10/01/17 19:09 Respiratory Panel (PCR) - Final Nasal, Sinus - Aspirate No Organism Detected Laboratory Results 10/02/17 04:52 10/02/17 04:52 10/01/17 10/02/17 10/03/17 05:59 05:59 05:59 Intake Total 1000 2718 Output Total 475 2300 Balance 525 418 ICD10 Worksheet Patient Problems: Problems Problem Status Onset Abdominal pain Acute Adynamic ileus Acute Diabetes Acute Headache Acute
--- NOTE | 2017-10-02 16:24 | HOSPPROG ---
Hospitalist Progress Note Assessment/Plan: # Small bowel obstruction. Acute, abdominal xray (personally reviewed and interpreted) improved bowel distention pain improved again overnight with NGT - cont NGT- surgery likely to dc - abd xray in am - cont IVF and NPO - cont IV pain meds # ? pulmonary infiltrates on abd xray - CXR (perosnally reviewed and interpreted ) no infiltrates- oxygen saturations 95% on 3L - dc empiric abx # Diabetes mellitus type 2. -hold Levemir given her oral diet is uncertain this time -low-dose insulin sliding scale with q.6 hours glucose checks # Hypertension. Chronic, hold patient's ARB and propranolol given that she currently has no oral intake # Systemic inflammatory response syndrome.- improved with IVF and pain meds -leukocytosis most likely secondary to stress response in the setting of pain down to 10 today - follow # Depression and insomnia-l -will be holding mirtazapine given NPO status, reinitiate as soon as possible Diet. NPO, IV fluids Prophylaxis. High risk patient, SCDs, hold pharm given potential of surgery Code. Full per patient, her cousin Briseida Zhou is her MD POA Dispo - anticipated length stay greater than 48 hours for reasonable medical necessity including acute small bowel obstruction requiring NPO status, IV fluids, nasogastric tube, IV pain and antiemetic medications. I have discussed the case with Dr. Gordon he will likely dc NGT today if continue s to improve Subjective: pain improved - no cough Objective: Vital Signs Temp Pulse Resp BP Pulse Ox 37.0 C 109 H 16 152/94 H 92 10/02/17 15:59 10/02/17 15:59 10/02/17 15:59 10/02/17 15:59 10/02/17 15:59 Microbiology 10/01/17 19:09 Respiratory Panel (PCR) - Final Nasal, Sinus - Aspirate No Organism Detected Laboratory Results 10/02/17 04:52 10/02/17 04:52 10/01/17 10/02/17 10/03/17 05:59 05:59 05:59 Intake Total 1000 2718 Output Total 475 2300 800 Balance 525 418 -800 - Physical Exam Constitutional: appears nourished Eyes: anicteric sclera Ears, Nose, Mouth, Throat: other (ngt) Cardiovascular: regular rate and rhythym Respiratory: no respiratory distress, no rales or rhonchi Gastrointestinal: normoactive bowel sounds Genitourinary: no bladder fullness Skin: warm Musculoskeletal: No asymmetric calves Neurologic: AAOx3 Psychiatric: interacting appropriately Lymph, Heme, Immunologic: no cervical LAD ICD10 Worksheet Patient Problems: Problems Problem Status Onset Abdominal pain Acute Adynamic ileus Acute Diabetes Acute Headache Acute
[2017-10-02] MEDS: MIRTAZAPINE 15 MG TAB PO SCH (22:33)
[2017-10-02] MEDS: GABAPENTIN 300 MG CAP PO SCH (22:33)
[2017-10-03] MEDS: INSULIN REGULAR HUMAN 100 UNIT/ML SC SCH ×4 (00:38→18:38)
[2017-10-03 05:20] LABS: % IMMATURE GRANULYOCYTES 0.8 % (0.0-1.1); ABSOLUTE IMMATURE GRANULOCYTES 0.08 10^3/uL (0.00-0.10); ADD DIFF? NO; ADD MORPH? NO; ADD SCAN? NO; ATYPICAL LYMPHOCYTE FLAG 0 (0-99); FRAGMENT RBC FLAG 0 (0-99); HEMATOCRIT 36.8 % (38.0-47.0); HEMOGLOBIN 12.6 g/dL (12.6-16.3); LEFT SHIFT FLG 0 (0-99); LIPEMIA HEMOLYSIS FLAG 90 (0-99); MEAN CELL HEMOGLOBIN 28.9 pg (27.9-34.1); MEAN CELL HEMOGLOBIN CONCENTR. 34.2 g/dL (32.4-36.7); MEAN CELL VOLUME 84.4 fL (81.5-99.8); PLATELET CLUMPS FLAG 10 (0-99); PLATELET COUNT 276 10^3/uL (150-400); RED BLOOD CELL COUNT 4.36 10^6/uL (4.18-5.33); RED CELL DISTRIBUTION WIDTH 13.9 % (11.5-15.2)
[2017-10-03 05:31] LABS: ANION GAP 16 mEq/L (8-16); CALCIUM 8.6 mg/dL (8.5-10.4); CARBON DIOXIDE 21 mEq/l (22-31); CHLORIDE 104 mEq/L (97-110); CREATININE 0.7 mg/dL (0.6-1.0); GLOMERULAR FILTRATION RATE > 60; GLUCOSE 109 mg/dL (70-100); MAGNESIUM 1.8 mg/dL (1.6-2.3); POTASSIUM 3.2 mEq/L (3.5-5.2); SODIUM 141 mEq/L (134-144)
[2017-10-03] MEDS: NS 1,000 ML IV SCH (05:39)
[2017-10-03] MEDS ORDERED: PROTOCOL POTASSIUM 1 DOSE MISC PRN (09:08)
--- NOTE | 2017-10-03 09:41 | SOAPPROG ---
SOAP Progress Note Assessment/Plan: Assessment/Plan: 72 Y F hx multiple abdominal surgeries. admitted c SBO. Improved. AXR without obstruction. D/c NGT. Clears this am, light diet for lunch. If does well, can likely d/c to home. Dr. Gordon may want to get a SBFT before d/c--will d/w him today. S: no pain, no nausea, +BMs. "hungry" O: alert, nad ng in place no wob rrr abd +BS, soft, NT 10/03/17 09:39 Objective: Vital Signs Temp Pulse Resp BP Pulse Ox 36.7 C 101 H 16 147/99 H 93 10/03/17 07:56 10/03/17 07:56 10/03/17 07:56 10/03/17 07:56 10/03/17 07:56 Microbiology 10/01/17 19:09 Respiratory Panel (PCR) - Final Nasal, Sinus - Aspirate No Organism Detected Laboratory Results 10/03/17 04:50 10/03/17 04:50 10/02/17 10/03/17 10/04/17 05:59 05:59 05:59 Intake Total 6653 900 Output Total 2300 1700 Balance 418 -800 ICD10 Worksheet Patient Problems: Problems Problem Status Onset Abdominal pain Acute Adynamic ileus Acute Diabetes Acute Headache Acute
[2017-10-03] MEDS ORDERED: POTASSIUM Cl (KCl) 100 ML IV SCH (10:30)
[2017-10-03] MEDS: PROPRANOLOL HCL 10 MG TAB PO SCH (10:32)
[2017-10-03] MEDS: POTASSIUM Cl (KCl) 10 MEQ in NS 100 ML IV SCH ×4 (11:22→16:28)
--- NOTE | 2017-10-03 15:46 | ASMTCMCOM ---
CM Note CM Note Notes: Pt to have swallow study, still TBD if will need surgery. Kayla [place] [phone] updated and faxed clinicals [phone]. Kayla off tomorrow and will work Sunday and call CM in the am to determine pt status. CM to follow. D/c plan of care: GW has to complete on-site assessment of pt closer to d/c and pt wants to return to [place] Date Signed: 10/03/2017 03:46 PM Electronically Signed By:MEIR Conn
--- NOTE | 2017-10-03 16:16 | HOSPPROG ---
Hospitalist Progress Note Assessment/Plan: # Small bowel obstruction. Acute, abdominal xray (personally reviewed and interpreted) no obstruction pain improved again overnight with NGT - dc NGT-today - SBFT ordered by surgery - advance diet per surgery - cont IV pain meds # ? pulmonary infiltrates on abd xray - CXR (perosnally reviewed and interpreted ) no infiltrates- oxygen saturations 93% on RA - dc empiric abx # Diabetes mellitus type 2. - cont to hold Levemir until PO normal -low-dose insulin sliding scale with q.6 hours glucose checks # Hypertension. Chronic,restart patient's ARB today - restart propranolol tomorrow if BP remains stable # Systemic inflammatory response syndrome.- resolved with IVF and pain meds -leukocytosis most likely secondary to stress response in the setting of pain down to 9 this am - follow # Depression and insomnia-l -will restart mirtazapine Diet. NPO, IV fluids Prophylaxis. High risk patient, SCDs, hold pharm given potential of surgery Code. Full per patient, her cousin Briseida Zhou is her MD POA Dispo - anticipated length stay greater than 48 hours for reasonable medical necessity including acute small bowel obstruction requiring NPO status, IV fluids, nasogastric tube, IV pain and antiemetic medications. I have discussed the case with surgery - will likely dc NGT today Subjective: no pain Objective: Vital Signs Temp Pulse Resp BP Pulse Ox 36.7 C 101 H 16 147/99 H 93 10/03/17 07:56 10/03/17 07:56 10/03/17 07:56 10/03/17 07:56 10/03/17 07:56 Laboratory Results 10/03/17 04:50 10/03/17 04:50 10/02/17 10/03/17 10/04/17 05:59 05:59 05:59 Intake Total 2718 900 Output Total 2300 1700 Balance 418 -800 - Physical Exam Constitutional: appears nourished Eyes: anicteric sclera Ears, Nose, Mouth, Throat: moist mucous membranes Cardiovascular: regular rate and rhythym Respiratory: no respiratory distress, no rales or rhonchi Gastrointestinal: normoactive bowel sounds Genitourinary: no bladder fullness Skin: warm, normal color Musculoskeletal: No asymmetric calves Neurologic: AAOx3 Psychiatric: interacting appropriately Lymph, Heme, Immunologic: no cervical LAD ICD10 Worksheet Patient Problems: Problems Problem Status Onset Abdominal pain Acute Adynamic ileus Acute Diabetes Acute Headache Acute
[2017-10-03] MEDS: LOSARTAN POTASSIUM 25 MG TAB PO SCH ×2 (18:38→20:15)
--- NOTE | 2017-10-03 19:05 | SOAPPROG ---
SOHASEEB Progress Note Assessment/Plan: Assessment: PT WITH POSSIBLE SBO IMPROVED WITH NG ABD SOFT, NONTENDER WITH MULTIPLE SURGICAL SCARS BUT NO HERNIAS/ + BS, - FLATUS NG OUTPUT MODERATE Plan:CONTINUE OBS, NG IVs, FU 2-WAY 10/01/17 09:11 10/03/17 19:04 Doing well with NG tube clamped/small-bowel follow-through completely normal/ abdomen soft nontender with positive bowel sounds/positive BM today Plan: NG out, advanced diet, home tonight or in the a.m. Objective: Vital Signs Temp Pulse Resp BP Pulse Ox 36.7 C 103 H 16 153/64 H 91 L 10/03/17 07:56 10/03/17 16:26 10/03/17 16:26 10/03/17 16:26 10/03/17 16:26 Laboratory Results 10/03/17 04:50 10/03/17 04:50 10/02/17 10/03/17 10/04/17 05:59 05:59 05:59 Intake Total 2718 900 Output Total 2300 1700 0 Balance 418 -800 0 ICD10 Worksheet Patient Problems: Problems Problem Status Onset Abdominal pain Acute Adynamic ileus Acute Diabetes Acute Headache Acute
[2017-10-03 19:30] LABS: POTASSIUM 4.3 mEq/L (3.5-5.2)
[2017-10-03] MEDS: GABAPENTIN 300 MG CAP PO SCH (20:10)
[2017-10-03] MEDS: MIRTAZAPINE 15 MG TAB PO SCH (20:10)
[2017-10-04] MEDS: INSULIN REGULAR HUMAN 100 UNIT/ML SC SCH ×4 (00:44→18:38)
[2017-10-04 05:22] LABS: POTASSIUM 3.6 mEq/L (3.5-5.2)
[2017-10-04] MEDS: PROPRANOLOL HCL 10 MG TAB PO SCH (08:02)
--- NOTE | 2017-10-04 11:19 | SOAPPROG ---
SOAP Progress Note Assessment/Plan: Assessment: 72 yo with SBO now resolved. Tolerating diet Likely home today F/U Dr. Gordon prn S: Passing flatus. Tolerating diet O: BS present soft and non tender Plan: 10/04/17 11:09 10/04/17 11:19 Objective: Vital Signs Temp Pulse Resp BP Pulse Ox 36.8 C 122 H 16 137/91 H 93 10/04/17 07:28 10/04/17 08:02 10/04/17 07:28 10/04/17 08:02 10/04/17 07:28 Laboratory Results 10/03/17 04:50 10/04/17 04:43 10/03/17 10/04/17 10/05/17 05:59 05:59 05:59 Intake Total 900 Output Total 1700 0 Balance -800 0 ICD10 Worksheet Patient Problems: Problems Problem Status Onset Abdominal pain Acute Adynamic ileus Acute Diabetes Acute Headache Acute
[2017-10-04] MEDS ORDERED: POTASSIUM CL 10 MEQ TAB PO ONE (11:24)
--- NOTE | 2017-10-04 13:13 | HOSPPROG ---
Hospitalist Progress Note Assessment/Plan: # Small bowel obstruction. Acute, SBFT (personally reviewed and interpreted) no obstruction- normal transit time pain improved again overnight with NGT - dc'd NGT without complication - SBFT ordered by surgery - regular diet - dc IV pain meds and IVF # Diabetes mellitus type 2. - cont to hold Levemir until PO normal -low-dose insulin sliding scale with q.6 hours glucose checks # Hypertension. Chronic,restart patient's ARB today- 93% on RA - restart propranolol today # Systemic inflammatory response syndrome.- resolved with IVF and pain meds -leukocytosis most likely secondary to stress response in the setting of pain down to 9 this am - follow # Depression and insomnia-l -will restart mirtazapine Diet. regular Prophylaxis. High risk patient, SCDs, hold pharm given potential of surgery Code. Full per patient, her cousin Briseida Abelardo is her MD POA Dispo - dc today if can be arranged with [facility] I have discussed the case with RN - can dc IV in anticipation of dc Subjective: no pain Objective: Vital Signs Temp Pulse Resp BP Pulse Ox 36.8 C 122 H 16 137/91 H 93 10/04/17 07:28 10/04/17 08:02 10/04/17 07:28 10/04/17 08:02 10/04/17 07:28 Laboratory Results 10/03/17 04:50 10/04/17 04:43 10/03/17 10/04/17 10/05/17 05:59 05:59 05:59 Intake Total 900 Output Total 1700 0 Balance -800 0 - Physical Exam Constitutional: appears nourished Eyes: anicteric sclera Ears, Nose, Mouth, Throat: moist mucous membranes Cardiovascular: regular rate and rhythym Respiratory: no respiratory distress Gastrointestinal: normoactive bowel sounds Genitourinary: no bladder fullness Skin: warm Musculoskeletal: No asymmetric calves Neurologic: AAOx3 Psychiatric: interacting appropriately Lymph, Heme, Immunologic: no cervical LAD ICD10 Worksheet Patient Problems: Problems Problem Status Onset Abdominal pain Acute Adynamic ileus Acute Diabetes Acute Headache Acute
--- NOTE | 2017-10-04 16:15 | ASMTCMCOM ---
CM Note CM Note Notes: Pt very upset she is unable to return to [facility] today for [place]. Left message for Kayla and did not receive a call back. Will call first thing in the morning. Pt cleared for d/c last night by Dr Gordon. Date Signed: 10/04/2017 04:14 PM Electronically Signed By:MEIR Jack
[2017-10-04] MEDS ORDERED: INSULIN GLARGINE 100 UNITS/ML SYRINGE SC SCH (21:00)
[2017-10-04] MEDS ORDERED: NON-FORMULARY NEW DRUG (Insulin Detemir [Levemir] 10 UNIT) SQ SCH (21:00)
[2017-10-04] MEDS: GABAPENTIN 300 MG CAP PO SCH (21:12)
[2017-10-04] MEDS: MIRTAZAPINE 15 MG TAB PO SCH (21:12)
[2017-10-05] MEDS: INSULIN REGULAR HUMAN 100 UNIT/ML SC SCH ×2 (01:09→06:09)
[2017-10-05 07:49] VITALS: BP 125/70; PULSE 103; RESP 14; TEMP 97.7; O2SAT 92
[2017-10-05] MEDS: PROPRANOLOL HCL 10 MG TAB PO SCH (07:51)
[2017-10-05] MEDS ORDERED: ATORVASTATIN CALCIUM 40 MG TAB PO SCH (09:00)
[2017-10-05] MEDS ORDERED: ASPIRIN EC 81 MG TAB PO SCH (09:00)
--- NOTE | 2017-10-05 09:59 | PDIAF ---
- Diagnosis Diagnosis: sbo Code Status: Full Code - Medication Management Discharge Medications: Medications to Continue on Transfer Aspirin EC [Aspirin EC 81 mg (*)] 81 mg PO DAILY 03/22/16 [Last Taken 09/30/17] Atorvastatin Calcium [Lipitor 40 mg (*)] 40 mg PO DAILY 03/22/16 [Last Taken ] Cholecalciferol Vit D3 [Vitamin D3 2000 units tab (OTC)] 2,000 units PO DAILY [Last Taken 09/30/17] Fluticasone Nasal [Flonase Nasal [place]] 1 sprays NASAL DAILY PRN 03/22/16 [Last Taken Unknown] Insulin Detemir [Levemir] 10 unit SQ HS 03/22/16 [Last Taken 09/29/17] Losartan Potassium [Cozaar 25 mg (*)] 25 mg PO DAILY@20 03/22/16 [Last Taken 10/28 08:00] Meclizine HCl [Meclizine HCl 25 mg (RX,OTC)] 25 mg PO Q6HRS PRN 03/22/16 [Last Taken 08/23/17] Propranolol HCl [Inderal 10mg (*)] 10 mg PO DAILY 03/22/16 [Last Taken 09/30/17 08:00] Herbals/Supplements -Info Only 1 ea PO DAILY 08/24/17 [Last Taken Unknown] Loratadine 10 mg PO DAILY PRN 08/24/17 [Last Taken Unknown] MIRTAZAPINE [Remeron 7.5 mg] 7.5 mg PO HS 08/24/17 [Last Taken 09/29/17] Meloxicam 15 mg PO HS 08/24/17 [Last Taken 09/29/17] Vitamin B Complex [B Complex] 1 each PO DAILY 08/24/17 [Last Taken 08/24/17] metFORMIN HCL [Glucophage 500 mg (*)] 500 mg PO BIDMEAL 08/24/17 [Last Taken 08:00] traMADol [Ultram 50 mg (*)] 50 mg PO Q4 PRN 08/24/17 [Last Taken 09/30/17] Gabapentin 300 mg PO HS 09/30/17 [Last Taken 09/29/17] Discharge Medications: Refer to the Discharge Home Medication list for PRN reason. - Orders Services needed: Home Care, Registered Nurse Home Care Face to Face: I certify that this patient was under my care and that I had the required [id number] encounter meeting the encounter requirements on the discharge day. My findings support the fact that the patient is homebound as defined in Home Care Face to Face Continued: [facility] Chapter 7 Medicare Benefits Manual 30.1.1 , The condition of the patient is such that there exists a normal inability to leave home and consequently, leaving home would require a considerable and taxing effort. Isolation Type: None Diet Recommendation: no restrictions on diet Diet Texture: Regular Texture Diet - Follow Up Care Current Providers and Referrals: Evert Gordon MD [Medical Doctor] - Patient,NotPresent [Unknown] - As per Instructions
--- NOTE | 2017-10-05 10:35 | ASDISCHSUM ---
Discharge Information Plan Status:Has needs-TBD Medically Cleared to Leave:10/04/2017 Discharge Date:10/04/2017 CM D/C Disposition:Assisted Living ADT D/C Disposition:Home, Routine, Self-Care Projected Discharge Date:10/05/2017 11:00 AM Transportation at D/C:Friend Discharge Delay Reason: Follow-Up Date:10/05/2017 11:00 AM Discharge Slot: Final Diagnosis: Placement Information Referral Type:Assisted Living Residence Referral ID:[id number] Provider Name:Bijan Glasgow Martinez Kathyajewel Address 1:[address] [facility] Phone Number: Address 2:[place] Fax Number: [facility]:[place] Selection Factors: State:[place] Patient Contact Information Contact Name:ANGEL LUIS Relationship:Cousin Address: Work Phone: City: [facility] Phone: [facility] Code: Email: Financial Information Financial Class:Medicare Advantage Plans Primary Plan Desc:KARMA KEARNS MEDICARE Primary Plan Number:[id number] Secondary Plan Desc:MED[place] Secondary Plan Number:[id number] Assessment Information [facility] CM Progress Note CM Note CM Note Notes: Pt resides at [facility], GW will need to complete on-site assessment in order to approve her return, GW contact is Kayla [phone]. CM to follow. Date Signed: 10/01/2017 03:03 PM Electronically Signed By:MEIR Conn [facility] CM Progress Note CM Note CM Note Notes: Pt to have swallow study, still TBD if will need surgery. Kayla with [facility] [phone] updated and faxed clinicals [phone]. Kayla off tomorrow and will work Sunday and call CM in the am to determine pt status. CM to follow. D/c plan of care: has to complete on-site assessment of pt closer to d/c and pt wants to return to [facility] Date Signed: 10/03/2017 03:46 PM Electronically Signed By:MEIR Conn [facility] CM Progress Note CM Note CM Note Notes: Pt very upset she is unable to return to [facility] today for [place]. Left message for Kayla and did not receive a call back. Will call first thing in the morning. Pt cleared for d/c last night by Dr Gordon. Date Signed: 10/04/2017 04:14 PM Electronically Signed By:MEIR Jack Case Management Discharge Plan Note Case Management Discharge Discharge Order Complete? Answers: Yes Patient to Obtain Answers: Other Notes: [facility] Transportation Arranged Answers: Family/Friends Faxed Final Orders Answers: Yes Discharge Comments Notes: Kayla from in this morning to assess pt for return to [facility]. Pt discharging this morning. Date Signed: 10/05/2017 10:30 AM Electronically Signed By:MEIR Jack Intervention Information
--- NOTE | 2017-10-05 14:29 | GDS ---
[f rep st] DISCHARGE SUMMARY DISCHARGE DIAGNOSES: 1. Small-bowel obstruction, medically managed. 2. Diabetes. 3. Hypertension. 4. Systemic inflammatory response syndrome secondary to small-bowel obstruction. 5. Leukocytosis secondary to small-bowel obstruction. 6. Depression. 7. Insomnia. HISTORY OF PRESENT ILLNESS: This is a 72-year-old female with a history of multiple abdominal surger ies, who presents with complaints of abdominal pain. For details of the patient's initial presentati on, please see the history and physical dated 09/30/2017. CONSULTATIVE SERVICES: General Surgery. HOSPITAL COURSE: 1. Small bowel obstruction. There was early concern for the patient having a mechanical obstruction related to adhesions from previous abdominal surgeries. The patient was admitted. NG tube was plac ed and started on intravenous fluids and intravenous pain medications. Over the course of the first 4 8 hours, the patient's pain markedly improved. She developed flatus and began passing stools. She h ad her NG tube discontinued after a successful small-bowel follow-through 48 hours prior to discharge . On the day of disposition, she has had 24 hours of regular diet without complication or need for p ain medication. She is being discharged to home with followup with Dr. Gordon in the outpatient [facility]. 2. Diabetes. The patient had her normal home medications held in the early part of her stay seconda ry to her n.p.o. status. She is being re-initiated on home medications at discharge. 3. Hypertension. She had several of her home antihypertensives held as well. These have also been re-initiated at discharge. MEDICATIONS AT THE TIME OF DISPOSITION: Please reference medication reconciliation printed on 2016. FOLLOWUP APPOINTMENTS: Dr. Gordon. PENDING STUDIES: At the time of this dictation are none. TIME SPENT: I spent greater than 30 minutes in the planning and coordination of this discharge. /[id number]/MODL
== END 2017-10-05 11:44 | disposition home or self-care (01) | DRG 389 ==
LOC: EDUNIT# → OBSVTOIN 21:12 → F3N 22:50
PROVIDERS: ADMIT Internal Medicine; ATTEND Internal Medicine
DX: K56.600 Partial intestinal obstruction, unspecified as to cause (principal); R65.10 Systemic inflammatory response syndrome (SIRS) of non-infectious origin without acute organ dysfunction; E11.9 Type 2 diabetes mellitus without complications; I10 Essential (primary) hypertension; F32.9 Major depressive disorder, single episode, unspecified; G47.00 Insomnia, unspecified; Z79.84 Long term (current) use of oral hypoglycemic drugs
CPT/HCPCS: 82947-QW; 97116-GP; 97161-GP; 97165-GO; 97535-GO; G8987-GO-CJ; G8988-GO-CI; J0456; J0696; J1170; J1815; J2765; Q9967

== ENCOUNTER 2017-10-15 18:33 | Inpatient (IN) | payer OTHER, MEDICAID ==
--- NOTE | 2017-10-15 18:56 | EDPHY ---
H & P Smoking Status: Never smoked Time Seen by Provider: 10/15/17 18:36 HPI/ROS: Chief complaint. Abdominal pain HPI. 72-year-old female presents by EMS with abdominal pain. Her abdominal be pain began about 930 this morning. She described as upper abdomen and pressure. No radiation. No nausea or vomiting. Normal bowel movement yesterday. The pain was constant and not worse with movement, eating, exertion. No chest discomfort or shortness of breath. She was in the hospital 2 weeks ago for small-bowel obstruction that was treated with NG tube. She has been eating and drinking fairly normally since her discharge. She was given 100 mcg of fentanyl EN route by EMS. She says she has no abdominal pain now. ROS Constitutional. no fever/chills, no weakness Eyes. no problems with vision ENT. no sore throat, no nasal drainage Cardiovascular. no chest pain Respiratory. no shortness of breath, no cough Abdominal. Abdominal pain without vomiting or diarrhea . no problems urinating MS. no calf pain/swelling, no neck/back pain, no joint pain Skin. no rash Lymph. no swollen glands Neuro. no headache, no dizziness, no difficulty walking or with speech (Wallace Shah) Past Medical/Surgical History: Past medical history significant for recent small-bowel obstruction, hernia repair, bowel leak, diabetes, hypertension, depression, insomnia (Wallace Shah ) Social History: , nonsmoker, no alcohol (Wallace Shah) Physical Exam: General Appearance: Alert well-developed female mild distress vital signs significant for heart rate 109. Eyes: Pupils equal and round no pallor or injection. ENT, Mouth: Mucous membranes are moist. Respiratory: There are no retractions, lungs are clear to auscultation. Cardiovascular: Regular rate and rhythm. Gastrointestinal: Abdomen is soft and dairy mildly tender in the epigastric area. Bowel sounds are present though somewhat decreased. No masses. Neurological: Awake and alert, sensory and motor exams grossly normal. Skin: Warm and dry, no rashes. Musculoskeletal: Neck is supple nontender. Extremities symmetrical, full range of motion. Psychiatric: Patient is oriented X 3, there is no agitation. (Wallace Shah) Constitutional: Initial Vital Signs Temperature (C) 36.9 C 10/15/17 18:39 Heart Rate 109 H 10/15/17 18:39 Respiratory Rate 16 10/15/17 18:39 Blood Pressure 167/92 H 10/15/17 18:39 O2 Sat (%) 92 10/15/17 18:39 O2 Delivery Mode Room Air Allergies/Adverse Reactions: diphenhydramine [From Benadryl] Allergy (Verified 09/30/17 19:18) Home Medications: Medication Instructions Recorded Aspirin EC [Aspirin EC 81 mg (*)] 81 mg PO DAILY 03/22/16 Atorvastatin Calcium [Lipitor 40 40 mg PO DAILY 03/22/16 mg (*)] Cholecalciferol Vit D3 [Vitamin D3 2,000 units PO DAILY 03/22/16 2000 units tab (OTC)] Fluticasone Nasal [Flonase Nasal 1 sprays NASAL DAILY PRN 03/22/16 Lane] Insulin Detemir [Levemir] 10 unit SQ HS 03/22/16 Losartan Potassium [Cozaar 25 mg 25 mg PO DAILY@20 03/22/16 (*)] Meclizine HCl [Meclizine HCl 25 mg 25 mg PO Q6HRS PRN 03/22/16 (RX,OTC)] Propranolol HCl [Inderal 10mg (*)] 10 mg PO DAILY 03/22/16 Herbals/Supplements -Info Only 1 ea PO DAILY 08/24/17 Loratadine 10 mg PO DAILY PRN 08/24/17 MIRTAZAPINE [Remeron 7.5 mg] 7.5 mg PO HS 08/24/17 Meloxicam 15 mg PO HS 08/24/17 Vitamin B Complex [B Complex] 1 each PO DAILY 08/24/17 metFORMIN HCL [Glucophage 500 mg 500 mg PO BIDMEAL 08/24/17 (*)] traMADol [Ultram 50 mg (*)] 50 mg PO Q4 PRN 08/24/17 Gabapentin 300 mg PO HS 09/30/17 Medical Decision Making - Diagnostics Imaging Results: Imaging Impressions Abdomen X-Ray 10/15/17 19:04 Impression: No obvious obstruction or perforation. Abdomen CT 10/15/17 20:51 Impression: 1. No evidence for recurrent small bowel obstruction. 2. Bilateral nonobstructive nephrolithiasis. 3. Progressive dilatation of the common hepatic duct without obvious cause. Recommend MRCP and MRI of the pancreas for further evaluation, to rule out choledocholithiasis, occult pancreatic head pathology, and bile duct malignancy which can be associated with congenital choledochal cysts. 4. Cholelithiasis. If there is concern for cholecystitis, a gallbladder sonogram +- nuclear medicine HIDA scan might be considered. Results discussed with Dr. Maksim Calles at 9:43 PM. General information for patients regarding this examination can be found at [email or web address]. If you have questions or comments about this report, please contact me at [phone] (hospital) or [phone] (cell). Abdomen Ultrasound 10/15/17 21:45 Impression: Distal common duct stricture versus occult choledocholithiasis versus occult pancreatic head pathology. Recommend MRCP and MRI of the pancreas without and with contrast. Results discussed with Dr. Leonardo 11:04 pm. Upright KUB shows multiple air-fluid levels concerning for bowel obstruction ( Wallace Shah) Procedures: IV normal saline (Wallace Shah) ED Course/Re-evaluation: Re-evaluation at 8:50 p.m.--patient has no pain or symptoms (Wallace Shah) 11:20 p.m.- I received sign-out on this patient at approximately 10:[address] Calles. Since that time, patient's LFTs have returned revealing a mild transaminitis and slightly elevated conjugated bilirubin. Her right upper quadrant ultrasound is somewhat abnormal demonstrating a distal common duct stricture verses occult choledocholithiasis versus occult pancreatic head pathology with a dilated CBD. I reexamined the patient and she is somewhat tachycardic at about 100 and does have tenderness in her epigastrium and right upper quadrant. Because of this I have ordered fentanyl 50 mcg. She has already received a fluid bolus. On review of her labs, she has a leukocytosis which was not present on a previous visit for SBO. Given her pain, mild tachycardia, concern for possible choledocholithiasis, I feel she should be admitted for observation of her pain and possible MRCP. I have discussed the case with the hospitalist Dr. Gill and have ordered her hospital bed. (Divine Leonardo) Differential Diagnosis: I think this patient likely has a recurrent small bowel obstruction. She was hospitalized 2 weeks ago for SBO. She had severe pain earlier today that is now resolved but has multiple air-fluid levels on plain KUB. (Wallace Shah) Care Turn Over: Dr. Calles at 9:15 pm (Wallace Shah) - Data Points Laboratory Results: Laboratory Results 10/15/17 18:42 12 18:42 10/15/17 12 12 18:42 18:42 18:42 WBC 15.15 10^3/uL H 10^3/uL (3.80-9.50) RBC 3.95 10^6/uL L 10^6/uL (4.18-5.33) Hgb 11.4 g/dL L g/dL (12.6-16.3) Hct 34.6 % L % (38.0-47.0) MCV 87.6 fL fL (81.5-99.8) MCH 28.9 pg pg (27.9-34.1) MCHC 32.9 g/dL g/dL (32.4-36.7) RDW 14.5 % % (11.5-15.2) Plt Count 369 10^3/uL 10^3/uL (150-400) MPV 10.9 fL fL (8.7-11.7) Neut % (Auto) 82.6 % H % (39.3-74.2) Lymph % (Auto) 10.0 % L % (15.0-45.0) [place] % (Auto) 5.3 % % (4.5-13.0) Eos % (Auto) 0.9 % % (0.6-7.6) Baso % (Auto) 0.7 % % (0.3-1.7) Nucleat RBC Rel Count 0.0 % % (0.0-0.2) Absolute Neuts (auto) 12.51 10^3/uL H 10^3/uL (1.70-6.50) Absolute Lymphs (auto) 1.52 10^3/uL 10^3/uL (1.00-3.00) Absolute Monos (auto) 0.80 10^3/uL 10^3/uL (0.30-0.80) Absolute Eos (auto) 0.14 10^3/uL 10^3/uL (0.03-0.40) Absolute Basos (auto) 0.11 10^3/uL H 10^3/uL (0.02-0.10) Absolute Nucleated RBC 0.00 10^3/uL 10^3/uL (0-0.01) Immature Gran % 0.5 % % (0.0-1.1) Immature Gran # 0.07 10^3/uL 10^3/uL (0.00-0.10) Sodium 143 mEq/L mEq/L (134-144) Potassium 4.9 mEq/L mEq/L (3.5-5.2) Chloride 104 mEq/L mEq/L (97-110) Carbon Dioxide 25 mEq/l mEq/l (22-31) Anion Gap 14 mEq/L mEq/L (8-16) BUN 16 mg/dL mg/dL (7-23) Creatinine 1.0 mg/dL mg/dL (0.6-1.0) Estimated GFR 55 Glucose 221 mg/dL H mg/dL (70-100) Calcium 9.8 mg/dL mg/dL (8.5-10.4) Total Bilirubin 1.0 mg/dL mg/dL (0.1-1.4) Conjugated Bilirubin 0.7 mg/dL H mg/dL (0.0-0.5) Unconjugated Bilirubin 0.3 mg/dL mg/dL (0.0-1.1) AST 125 IU/L H IU/L (14-46) ALT 77 IU/L H IU/L (9-52) Alkaline Phosphatase 152 IU/L H IU/L (38-126) Troponin I < 0.012 ng/mL ng/mL (0.000-0.034) Total Protein 6.3 g/dL g/dL (6.3-8.2) Albumin 3.6 g/dL g/dL (3.5-5.0) Lipase 255 IU/L IU/L (23-300) Medications Given: Discontinued Medications Fentanyl (Sublimaze) 50 mcg IVP EDNOW ONE Stop: 10/15/17 23:03 Last Admin: 10/15/17 23:10 Dose: 50 mcg Sodium Chloride (Ns) 1,000 mls @ 0 mls/hr IV ONCE ONE PRN Reason: Wide Open Stop: 10/15/17 19:42 Last Admin: 10/15/17 19:42 Dose: 1,000 mls Departure - Departure Disposition: [facility] Acute Clinical Impression: Transaminitis, Common bile duct dilation Abdominal pain Qualifiers: Abdominal location: periumbilical Qualified Code(s): R10.33 - Periumbilical pain Condition: Good Instructions: Acute Abdominal Pain (ED) Additional Instructions: Frequent, small sips fluids. Gradual diet advancement. Return for worsening symptoms. Recheck by your regular physician in 1-2 days without fail Referrals: Divine Barillas MD [Primary Care Provider] - 1-2 days without fail
[2017-10-15 19:13] LABS: % IMMATURE GRANULYOCYTES 0.5 % (0.0-1.1); ABSOLUTE IMMATURE GRANULOCYTES 0.07 10^3/uL (0.00-0.10); ADD DIFF? NO; ADD MORPH? NO; ADD SCAN? NO; ATYPICAL LYMPHOCYTE FLAG 0 (0-99); FRAGMENT RBC FLAG 0 (0-99); HEMATOCRIT 34.6 % (38.0-47.0); HEMOGLOBIN 11.4 g/dL (12.6-16.3); LEFT SHIFT FLG 0 (0-99); LIPEMIA HEMOLYSIS FLAG 80 (0-99); MEAN CELL HEMOGLOBIN 28.9 pg (27.9-34.1); MEAN CELL HEMOGLOBIN CONCENTR. 32.9 g/dL (32.4-36.7); MEAN CELL VOLUME 87.6 fL (81.5-99.8); MEAN PLATELET VOLUME 10.9 fL (8.7-11.7); PLATELET CLUMPS FLAG 10 (0-99); PLATELET COUNT 369 10^3/uL (150-400); RED BLOOD CELL COUNT 3.95 10^6/uL (4.18-5.33); RED CELL DISTRIBUTION WIDTH 14.5 % (11.5-15.2)
[2017-10-15 19:19] LABS: ANION GAP 14 mEq/L (8-16); CALCIUM 9.8 mg/dL (8.5-10.4); CARBON DIOXIDE 25 mEq/l (22-31); CHLORIDE 104 mEq/L (97-110); GLOMERULAR FILTRATION RATE 55; GLUCOSE 221 mg/dL (70-100); POTASSIUM 4.9 mEq/L (3.5-5.2); SODIUM 143 mEq/L (134-144)
[2017-10-15 19:31] LABS: TROPONIN I < 0.012 ng/mL (0.000-0.034)
[2017-10-15] MEDS ORDERED: NS 1,000 ML IV ONE (19:41)
[2017-10-15] MEDS ORDERED: IOPAMIDOL (ISOVUE-300) 100 ML BTL ONE (20:55)
[2017-10-15 22:05] LABS: ALBUMIN 3.6 g/dL (3.5-5.0); BILIRUBIN-CONJUGATED 0.7 mg/dL (0.0-0.5); BILIRUBIN-UNCONJUGATED 0.3 mg/dL (0.0-1.1); TOTAL PROTEIN 6.3 g/dL (6.3-8.2)
[2017-10-15] MEDS ORDERED: fentaNYL 100 MCG/2 ML INJ IVP ONE (23:02)
[2017-10-15] MEDS ORDERED: ERTAPENEM 1 GM VIAL IVP ONE (23:20)
[2017-10-15] MEDS ORDERED: ERTAPENEM 1 GM VIAL ONE (23:55)
[2017-10-16] MEDS ORDERED: ONDANSETRON 4 MG/2 ML VIAL IVP PRN (00:02)
[2017-10-16] MEDS ORDERED: HYDROmorphONE/DILAUDID 1 MG/ML INJ IVP PRN ×2 (00:02→20:12)
[2017-10-16] MEDS ORDERED: ONDANSETRON DISINTEGRATING 4 MG TAB PO PRN (00:02)
[2017-10-16] MEDS ORDERED: LORazepam 2 MG/ML INJ IVP PRN (02:56)
[2017-10-16] MEDS ORDERED: LORazepam 2 MG/ML INJ IVP ONE (02:56)
[2017-10-16] MEDS ORDERED: LR 1,000 ML IV SCH (03:00)
[2017-10-16 06:32] LABS: % IMMATURE GRANULYOCYTES 0.3 % (0.0-1.1); ABSOLUTE IMMATURE GRANULOCYTES 0.02 10^3/uL (0.00-0.10); ADD DIFF? NO; ADD MORPH? NO; ADD SCAN? NO; ATYPICAL LYMPHOCYTE FLAG 0 (0-99); FRAGMENT RBC FLAG 0 (0-99); HEMATOCRIT 30.2 % (38.0-47.0); HEMOGLOBIN 10.1 g/dL (12.6-16.3); LEFT SHIFT FLG 0 (0-99); LIPEMIA HEMOLYSIS FLAG 80 (0-99); MEAN CELL HEMOGLOBIN CONCENTR. 33.4 g/dL (32.4-36.7); MEAN CELL VOLUME 86.8 fL (81.5-99.8); MEAN PLATELET VOLUME 10.3 fL (8.7-11.7); PLATELET CLUMPS FLAG 0 (0-99); PLATELET COUNT 309 10^3/uL (150-400); RED BLOOD CELL COUNT 3.48 10^6/uL (4.18-5.33); RED CELL DISTRIBUTION WIDTH 14.6 % (11.5-15.2)
[2017-10-16 06:40] LABS: INR 0.94 (0.83-1.16); PROTIME(PATIENT) 12.8 SEC (12.0-15.0)
[2017-10-16 06:41] LABS: APTT 26.9 SEC (23.0-38.0)
--- NOTE | 2017-10-16 07:07 | PDGENHP ---
History and Physical - Chief Complaint upper abdominal pain - History of Present Illness Source - patient with some hearing deficit but otherwise is excellent historian. EMR reviewed and case discussed with ED provider. HPI - Pleasant 72 yo F with pmhx significant for DM II, HTN, chronic pain, neuropathy, recurrent ventral hernias with multiple abdominal surgeries and most recently admitted end of september for SBO who presents to the ED today via EMS from her apartment at [facility] with severe upper abdominal pain. patient reports pain started approximately 0930 yesterday. she describes as pressure/ cramping pain that is constant. no radiating abdominal pain. denies associated nausea/vomiting but patient noted declined appetite during supper. patient reports she had a normal BM day previously without any melena/hematochezia. Patient states she tolerated the pain all day and did not complain to anyone however when she returned home from visiting her at [facility] her pain became increasingly uncomfortable. Faraz received fentanyl by EMS en route with improvement in her pain but not complete resolution. History Information - Allergies/Home Medication List Allergies/Adverse Reactions: diphenhydramine [From Benadryl] Allergy (Verified 09/30/17 19:18) Home Medications: Aspirin EC [Aspirin EC 81 mg (*)] 81 mg PO DAILY 03/22/16 [Last Taken 09/30/17] Atorvastatin Calcium [Lipitor 40 mg (*)] 40 mg PO DAILY 03/22/16 [Last Taken ] Cholecalciferol Vit D3 [Vitamin D3 2000 units tab (OTC)] 2,000 units PO DAILY [Last Taken 09/30/17] Fluticasone Nasal [Flonase Nasal [place]] 1 sprays NASAL DAILY PRN 03/22/16 [Last Taken Unknown] Insulin Detemir [Levemir] 10 unit SQ HS 03/22/16 [Last Taken 09/29/17] Losartan Potassium [Cozaar 25 mg (*)] 25 mg PO DAILY@20 03/22/16 [Last Taken 10/28 08:00] Meclizine HCl [Meclizine HCl 25 mg (RX,OTC)] 25 mg PO Q6HRS PRN 03/22/16 [Last Taken 08/23/17] Propranolol HCl [Inderal 10mg (*)] 10 mg PO DAILY 03/22/16 [Last Taken 09/30/17 08:00] Herbals/Supplements -Info Only 1 ea PO DAILY 08/24/17 [Last Taken Unknown] Loratadine 10 mg PO DAILY PRN 08/24/17 [Last Taken Unknown] MIRTAZAPINE [Remeron 7.5 mg] 7.5 mg PO HS 08/24/17 [Last Taken 09/29/17] Meloxicam 15 mg PO HS 08/24/17 [Last Taken 09/29/17] Vitamin B Complex [B Complex] 1 each PO DAILY 08/24/17 [Last Taken 08/24/17] metFORMIN HCL [Glucophage 500 mg (*)] 500 mg PO BIDMEAL 08/24/17 [Last Taken 08:00] traMADol [Ultram 50 mg (*)] 50 mg PO Q4 PRN 08/24/17 [Last Taken 09/30/17] Gabapentin 300 mg PO HS 09/30/17 [Last Taken 09/29/17] I have personally reviewed and updated: family history, medical history, social history, surgical history - Past Medical History Additional medical history: Melanoma right knee s/p resection. benign essential HTN. Diabetes II. Recurrent ventral hernias s/p multiple revisions, resection, ostomy and take town. Depression, anxiety, insomnia. chronic pain. neuropathy both feet. OA back. HLD. allergic rhinitis. recent SBO 09/2017 tx conservatively - Surgical History Additional surgical history: Numerous ventral hernia repairs with resultant colostomy, ileostomy, reversal in 2013. melenoma resection off R knee - Family History Additional family history: Sibling with CVA - Social History Smoking Status: Never smoked Alcohol Use: None Drug Use: None Additional social history: Resides at [facility]. however is currently in [facility]. COR - FULL. Patient Cousin Briseida Zhou is MDPOA Review of Systems Review of Systems: ROS: 10pt was reviewed & negative except for what was stated in HPI & below Constitutional: Denies: chills, fever, recent illness EENMT: Reports: no symptoms Cardiac: Reports: edema (chronic right leg swelling near site of melenoma resection). Denies: chest pain, lightheadedness, palpitations Respiratory: Reports: cough (occasional), shortness of breath (chronic SOB worse with exertion. ) Gastrointestinal: Reports: abdominal pain, abdominal distention. Denies: vomitting, diarrhea, nausea Genitourinary: Reports: no symptoms. Denies: dysuria, hematuria Muscolosketal: Reports: back pain, joint pain (right knee, back occasionally). Denies: joint swelling Skin: Reports: no symptoms. Denies: change in color, rash Neurological: Reports: anxiety, depressed (reports occasional SI but denies any plans to harm self.), headache, numbness (bilateral neuropathy feet bilaterally. ), tingling. Denies: tremors, weakness Hematologic/Lymphatic: Denies: easy bleeding Physical Exam Physical Exam: Selected Entries 10/15/17 18:39 Blood Pressure Automatic Method Heart Rate 109 H Respiratory 16 Rate O2 Sat (%) 92 Temperature (C) 36.9 C Blood Pressure 167/92 H Mean Arterial 117 H Pressure (MAP) O2 Delivery Room Air Mode Temperature Oral Source Temp Pulse Resp BP Pulse Ox 36.6 C 94 16 136/69 H 94 10/16/17 05:33 10/16/17 05:33 10/16/17 05:33 10/16/17 05:33 10/16/17 05:33 Constitutional: no apparent distress, appears nourished, chronically ill appearing, obese, uncomfortable Eyes: PERRL (slighty decreased reactivity to light bilaterally but symmetric.), anicteric sclera, EOMI, No scleral injection Ears, Nose, Mouth, Throat: moist mucous membranes, hard of hearing, No oral ulcer, No poor dentition Cardiovascular: regular rate and rhythym, no murmur, rub, or gallop, No systolic murmur, No edema Peripheral Pulses: 1+: dorsalis-pedis (R), dorsalis-pedis (L) Respiratory: no respiratory distress, no rales or rhonchi, clear to auscultation Gastrointestinal: no palpable masses, tenderness (bilateral upper abdomen) Genitourinary: no bladder tenderness, No mera in urethra Skin: warm, normal color, no rashes or abrasions, other (right knee with nearly healed surgical scar. ) Musculoskeletal: full muscle strength, No joint tenderness, No muscular tenderness Neurologic: AAOx3, sensation intact bilaterally, CN II-XII Intact, No facial droop Psychiatric: interacting appropriately, not encephalopathic, thought process linear, anxious, flat affect, No poor insight, No poor judgement, No poor memory Lab Data & Imaging Review 10/16/17 06:20 10/16/17 06:20 WBC 6.54 10^3/uL (3.80-9.50) D 10/16/17 06:20 RBC 3.48 10^6/uL (4.18-5.33) L 10/16/17 06:20 Hgb 10.1 g/dL (12.6-16.3) L 10/16/17 06:20 Hct 30.2 % (38.0-47.0) L 10/16/17 06:20 MCV 86.8 fL (81.5-99.8) 10/16/17 06:20 MCH 29.0 pg (27.9-34.1) 10/16/17 06:20 MCHC 33.4 g/dL (32.4-36.7) 10/16/17 06:20 RDW 14.6 % (11.5-15.2) 10/16/17 06:20 Plt Count 309 10^3/uL (150-400) D 10/16/17 06:20 MPV 10.3 fL (8.7-11.7) 10/16/17 06:20 Neut % (Auto) 65.4 % (39.3-74.2) 10/16/17 06:20 Lymph % (Auto) 23.5 % (15.0-45.0) 10/16/17 06:20 [place] % (Auto) 8.0 % (4.5-13.0) 10/16/17 06:20 Eos % (Auto) 1.7 % (0.6-7.6) 10/16/17 06:20 Baso % (Auto) 1.1 % (0.3-1.7) 10/16/17 06:20 Nucleat RBC Rel Count 0.0 % (0.0-0.2) 10/16/17 06:20 Absolute Neuts (auto) 4.28 10^3/uL (1.70-6.50) 10/16/17 06:20 Absolute Lymphs (auto) 1.54 10^3/uL (1.00-3.00) 10/16/17 06:20 Absolute Monos (auto) 0.52 10^3/uL (0.30-0.80) 10/16/17 06:20 Absolute Eos (auto) 0.11 10^3/uL (0.03-0.40) 10/16/17 06:20 Absolute Basos (auto) 0.07 10^3/uL (0.02-0.10) 10/16/17 06:20 Absolute Nucleated RBC 0.00 10^3/uL (0-0.01) 10/16/17 06:20 Immature Gran % 0.3 % (0.0-1.1) 10/16/17 06:20 Immature Gran # 0.02 10^3/uL (0.00-0.10) 10/16/17 06:20 PT 12.8 SEC (12.0-15.0) 10/16/17 06:20 INR 0.94 (0.83-1.16) 10/16/17 06:20 APTT 26.9 SEC (23.0-38.0) 10/16/17 06:20 Sodium 143 mEq/L (134-144) 10/15/17 18:42 Potassium 4.9 mEq/L (3.5-5.2) 10/15/17 18:42 Chloride 104 mEq/L (97-110) 10/15/17 18:42 Carbon Dioxide 25 mEq/l (22-31) 10/15/17 18:42 Anion Gap 14 mEq/L (8-16) 10/15/17 18:42 BUN 16 mg/dL (7-23) 10/15/17 18:42 Creatinine 1.0 mg/dL (0.6-1.0) 10/15/17 18:42 Estimated GFR 55 10/15/17 18:42 Glucose 221 mg/dL (70-100) H 10/15/17 18:42 Calcium 9.8 mg/dL (8.5-10.4) 10/15/17 18:42 Total Bilirubin 1.0 mg/dL (0.1-1.4) 10/15/17 18:42 Conjugated Bilirubin 0.7 mg/dL (0.0-0.5) H 10/15/17 18:42 Unconjugated Bilirubin 0.3 mg/dL (0.0-1.1) 10/15/17 18:42 AST 125 IU/L (14-46) H 10/15/17 18:42 ALT 77 IU/L (9-52) H 10/15/17 18:42 Alkaline Phosphatase 152 IU/L (38-126) H 10/15/17 18:42 Troponin I < 0.012 ng/mL (0.000-0.034) 10/15/17 18:42 Total Protein 6.3 g/dL (6.3-8.2) 10/15/17 18:42 Albumin 3.6 g/dL (3.5-5.0) 10/15/17 18:42 Lipase 255 IU/L (23-300) 10/15/17 18:42 Imaging Review: KUB, upright History: Abdominal pain Comparison: 10/03/2017 Findings: The prior NG tube is no longer present. The lung bases are normally aerated. There are a few small air-fluid levels scattered in the colon. There are no obviously dilated loops of small bowel. A radiolucent belt overlies the lower abdomen. No free air is identified. There are chronic right inguinal surgical clips. Impression: No obvious obstruction or perforation. CT Abdomen and Pelvis With Contrast History: Abdominal pain, recent small bowel obstruction in September Technique: 128 slice volumetric data set helical CT obtained through the abdomen and pelvis during bolus administration of 90 mL Isovue-300 nonionic contrast without complication. Images are reviewed on the computer workstation. Dose reduction techniques were utilized. Comparison: September 30, 2017 (early versus partial small bowel obstruction) Findings: There is stable chronic polycystic liver and to a lesser extent, kidney disease. Abdomen- The liver and spleen are normal in size . There is no intrahepatic biliary dilatation. The gallbladder is distended on the current study and associated with dependent cholelithiasis. There is no evidence for a porcelain gallbladder. Common hepatic duct is becoming more dilated than it was previously (previously approximately 12 mm and currently approximately 15 mm). The common bile duct however remains normal. This raises the possibility of a congenital type I choledochal cyst with possible biliary stricturing. I do not see an obvious mass associated with the bile duct. There is bilateral nonobstructive nephrolithiasis , previously obscured by excreted contrast. There is no obvious ureteral or urinary bladder calculus. The pancreas remains normal. The adrenal glands and retroperitoneum look normal. There is no ascites or evidence for bowel obstruction. Pelvis: Urinary bladder looks normal. There is no pelvic adenopathy or free fluid. There is no retroperitoneal or inguinal adenopathy. There is diverticulosis of the redundant sigmoid colon without evidence of diverticulitis. Impression: 1. No evidence for recurrent small bowel obstruction. 2. Bilateral nonobstructive nephrolithiasis. 3. Progressive dilatation of the common hepatic duct without obvious cause. Recommend MRCP and MRI of the pancreas for further evaluation, to rule out choledocholithiasis, occult pancreatic head pathology, and bile duct malignancy which can be associated with congenital choledochal cysts. 4. Cholelithiasis. If there is concern for cholecystitis, a gallbladder sonogram +- nuclear medicine HIDA scan might be considered. Results discussed with Dr. Maksim Calles at 9:43 PM. General information for patients regarding this examination can be found at [email or web address]. If you have questions or comments about this report, please contact me at [phone] (hospital) or [phone] (cell). Right Upper Quadrant Abdominal Sonogram History: Progressive dilatation of the extrahepatic biliary tree and cholelithiasis seen on CT earlier, evaluate for choledocholithiasis Findings: There is cholelithiasis. The gallbladder wall is not thickened. There is a cyst tiny amount of free fluid adjacent to the gallbladder. The common duct is dilated measuring 1 cm proximally and tapers smoothly to 3 mm distally. There is no obvious choledocholithiasis. Her is no intrahepatic biliary dilatation. Multiple hepatic cysts are again visualized consistent with polycystic disease. There is no obvious evidence for pancreatitis. Impression: Distal common duct stricture versus occult choledocholithiasis versus occult pancreatic head pathology. Recommend MRCP and MRI of the pancreas without and with contrast. Results discussed with Dr. Leonardo 11:04 pm. Visualized and Interpreted imaging results: Yes Assessment & Plan Assessment: Pleasant 72 yo F with pmhx significant for multiple abdominal surgeries and recent admission for SBO who presents for bilateral upper abdominal pain x 1 day. - upper abdominal pain (Acute) - no evidence of cholecystitis or acute pancreatitis on imaging. common bile duct dilation with tapering is noted. - - recommendation MRCP wwo so will proceed with this. patient will remain NPO at this time. - Common bile duct dilation (Acute) - MRCP as noted above. ddx including stricture, choledocholithiasis or pancreatic cyst/mass. - cholelithiasis - no evidence of stone in CBD. MRCP as noted above. - Transaminitis (Acute) - without hyperbilirubinemia. will monitor. further evaluation as above. - anemia - appears likely anemia of chronic disease. no evidence of bleeding and BP stable. - hx of SBO - no evidence of obstruction at this time. Patient primary surgeon is Carlito Gordon and patient requests if surgical consultation is needed. - nonobstructive bilateral nephrolithiasis - incidentally noted on CT. pt asymptomatic. UA WNL. - hepatic cysts - MRCP as noted above. Chronic medical problems - benign essential HTN - BP acceptable. resume losartan and propranolol when diet advanced. hydralazine prn. - DM II - holding metformin at this time for 48 hours s/p contrast for CT abd/ pelvis. continue lantus 10 units at HS and low dose ISS. NPO at this time. - chronic pain - resume tramadol and gabapentin when diet advanced. holding meloxicam. dilaudid prn. - peripheral neuropathy - continue gabapentin when diet advanced. - depression/anxiety - pt reports occasional SI but denies any plans/intentions to harm self and would seek out help if thoughts escalated. - insomnia - ativan prn. - HLD - hold statin 2/2 transaminitis. FEN - IVF overnight while npo. electrolyte replacement if needed. PPX - SCDs. holding anticoagulation pending further imaging COR - FULL. patient's cousin Briseida Zhou is MDPOA Dispo - Admit to observation at this time pending additional evaluation.
[2017-10-16 07:17] LABS: ALANINE AMINOTRANSFERASE 249 IU/L (9-52); ALBUMIN 2.9 g/dL (3.5-5.0); ALKALINE PHOSPHATASE 177 IU/L (38-126); ANION GAP 9 mEq/L (8-16); ASPARTATE AMINOTRANSFERASE 303 IU/L (14-46); BILIRUBIN,TOTAL 0.9 mg/dL (0.1-1.4); CALCIUM 8.5 mg/dL (8.5-10.4); CARBON DIOXIDE 24 mEq/l (22-31); CHLORIDE 110 mEq/L (97-110); CREATININE 0.7 mg/dL (0.6-1.0); GLOMERULAR FILTRATION RATE > 60; GLUCOSE 104 mg/dL (70-100); MAGNESIUM 1.8 mg/dL (1.6-2.3); SODIUM 143 mEq/L (134-144); TOTAL PROTEIN 5.2 g/dL (6.3-8.2)
[2017-10-16] MEDS ORDERED: D50W 25 GM/50 ML SYR IVP PRN (07:39)
[2017-10-16] MEDS: INSULIN LISPRO 100 UNIT/ML SC SCH ×3 (08:45→22:00)
--- NOTE | 2017-10-16 09:15 | CPEKG ---
Heart Rate: 105 RR Interval: 571 P-R Interval: 128 QRSD Interval: 78 QT Interval: 356 QTC Interval: 471 P [place]: 47 QRS [place]: -35 T Wave [place]: 55 EKG Severity - BORDERLINE ECG - EKG Impression: SINUS TACHYCARDIA EKG Impression: LEFT AXIS DEVIATION EKG Impression: LOW VOLTAGE THROUGHOUT Electronically Signed By: Divine Leonardo 18-Oct-2017 06:42:16
[2017-10-16] MEDS ORDERED: GADOBUTROL 10 ML VIAL IVP ONE (11:43)
[2017-10-16] MEDS ORDERED: MECLIZINE HCL 25 MG TAB PO PRN (11:46)
[2017-10-16] MEDS ORDERED: FLUTICASONE NASAL 120 SPRAYS/16 GM MDI EACHNARE PRN (11:46)
[2017-10-16] MEDS ORDERED: NON-FORMULARY NEW DRUG (Loratadine [Loratadine] 10 MG) PO PRN (11:46)
--- NOTE | 2017-10-16 11:53 | HOSPPROG ---
Hospitalist Progress Note Assessment/Plan: 72-year-old with multiple medical issues is admitted with acute onset of abdominal pain. She was recently admitted for a small-bowel obstruction which resolved spontaneously she has had multiple surgeries in the past. CT scan and ultrasound were concerning for possible choledocholithiasis versus pancreatic mass. She is to undergo MRI of the abdomen today # abdominal pain: Slightly improved today still is NPO Will await findings of MRI, * MRCP/MRI * Follow-up LFTs * Discussed with Pennie Gordon PA * Given ongoing abdominal pain will need additional midnight stay for further evaluation and treatment of this. # diabetes: Will continue her Lantus and add p.r.n. sliding scale as needed and hold the metformin due to recent dye load # hypertension: Stable resume her medications as needed # peripheral neuropathy # chronic pain on tramadol daily Subjective: Patient new to me and chart reviewed. Continued to have abdominal pain but much improved today. No chest pain or shortness of breath. Objective: Vital Signs Temp Pulse Resp BP Pulse Ox 36.6 C 98 18 136/69 H 92 10/16/17 08:56 10/16/17 08:56 10/16/17 08:56 10/16/17 05:33 10/16/17 08:56 Laboratory Results 10/16/17 06:20 10/16/17 06:20 10/15/17 10/16/17 10/17/17 05:59 05:59 05:59 Intake Total 1230 Balance 1230 PT 12.8 SEC (12.0-15.0) 10/16/17 06:20 INR 0.94 (0.83-1.16) 10/16/17 06:20 - Physical Exam Constitutional: no apparent distress Eyes: PERRL, anicteric sclera, EOMI Ears, Nose, Mouth, Throat: moist mucous membranes Cardiovascular: regular rate and rhythym Respiratory: no respiratory distress, clear to auscultation Gastrointestinal: normoactive bowel sounds, tenderness (Mild), No guarding, No rebound Genitourinary: no bladder fullness Skin: warm Neurologic: AAOx3 Psychiatric: interacting appropriately, not anxious ICD10 Worksheet Patient Problems: Problems Problem Status Onset Abdominal pain Acute Common bile duct dilation Acute Transaminitis Acute Adynamic ileus Acute Diabetes Acute Headache Acute
[2017-10-16] MEDS ORDERED: CETIRIZINE 10 MG TAB PO PRN (12:02)
--- NOTE | 2017-10-16 13:20 | PDMN ---
Medical Necessity Medical necessity: Patient meets INPT criteria per physician note and [facility] M-05 Abdominal Pain, Undiagnosed (acute onset abd pain and new transaminitis; CT and US concerning for poss choledocholithiasis vs pancreatic mass; hx of recent hospitalization for SBO; anticipated LOS > 2 midnights for MRCP/MRI, f/u LFT's, ongoing IV hydration while NPO for testing.)
--- NOTE | 2017-10-16 15:19 | ASMTCMCOM ---
CM Note CM Note Notes: 10/16/2017 Case Management Note Met w/pt. Pt lives at [facility] in the [place]. She takes 3 meals a day there and has an RN adminstering her meds. There are PT services available but pt does not utilize them at this time. Pt no longer drives and plans for her cousin Keara ([phone]) to transport back to [facility] at d/c. There are no PT or OT evals at this time. Case Management d/c poc: home independent when medically stable. Case Management available if needs change. Date Signed: 10/16/2017 03:19 PM Electronically Signed By:Reina Morales RN
--- NOTE | 2017-10-16 15:23 | SOAPPROG ---
SOAP Progress Note Assessment/Plan: Assessment/Plan: 72 Y F known to us from colostomy takedown, VH repair, melanoma excision, and recent SBO resolved c conservative management. Admitted with upper abdominal pain, elevated LFTs. Appreciate CT, US, MRCP. Likely lap rashid soon. Full note to follow. 10/16/17 15:17 Objective: Vital Signs Temp Pulse Resp BP Pulse Ox 36.8 C 97 17 138/90 H 95 10/16/17 15:00 10/16/17 15:00 10/16/17 15:00 10/16/17 15:00 10/16/17 15:00 10/15/17 10/16/17 10/17/17 05:59 05:59 05:59 Output Total 450 Balance -450 PT 12.8 SEC (12.0-15.0) 10/16/17 06:20 INR 0.94 (0.83-1.16) 10/16/17 06:20 ICD10 Worksheet Patient Problems: Problems Problem Status Onset Abdominal pain Acute Common bile duct dilation Acute Transaminitis Acute Adynamic ileus Acute Diabetes Acute Headache Acute
[2017-10-16] MEDS ORDERED: ERTAPENEM 1 GM VIAL IVP ONE (16:18)
[2017-10-16] MEDS ORDERED: IOPAMIDOL (ISOVUE-300) 150 ML BTL ONE (17:05)
[2017-10-16] MEDS ORDERED: BUPIVACAINE 0.5% 30 ML SDV ONE (17:05)
[2017-10-16] MEDS ORDERED: IOTHALAMATE MEG (CYSTO-CONRAY II) 250 ML VIAL BLADIN ONE (17:05)
[2017-10-16] MEDS ORDERED: ceFAZolin 1 GM/5 ML SYR ONE (17:05)
[2017-10-16] MEDS ORDERED: HEPARIN 1000 UNIT/1 ML MDV ONE (17:05)
[2017-10-16] MEDS ORDERED: ERTAPENEM 1 GM VIAL ONE (17:32)
[2017-10-16] MEDS ORDERED: fentaNYL 100 MCG/2 ML INJ ONE ×2 (17:42→18:41)
[2017-10-16] MEDS ORDERED: PROPOFOL 200 MG/20 ML VIAL ONE (17:42)
[2017-10-16] MEDS ORDERED: NALOXONE HCL 0.4 MG/ML INJ IVP PRN ×2 (18:30→20:13)
[2017-10-16] MEDS ORDERED: ALBUTEROL 3 ML DEYVIAL IH PRN ×2 (18:30→20:13)
[2017-10-16] MEDS ORDERED: LR 500 ML IV PRN ×2 (18:30→20:13)
[2017-10-16] MEDS ORDERED: DEXAMETHASONE 4 MG/ML VIAL IVP PRN ×2 (18:30→20:13)
[2017-10-16] MEDS ORDERED: PHENYLEPHRINE HCL 100 MCG/ML SYR IVP PRN ×2 (18:30→20:13)
--- NOTE | 2017-10-16 18:30 | PDANEPAE ---
ANE Past Medical History - Cardiovascular History Hx Hypertension: Yes Hx Arrhythmias: No Hx Chest Pain: No Hx Coronary Artery / Peripheral Vascular Disease: No Hx CHF / Valvular Disease: No Hx Palpitations: No Cardiovascular History Comment: no cp - Pulmonary History Hx COPD: No Hx Asthma/Reactive Airway Disease: No Hx Recent Upper Respiratory Infection: No Hx Oxygen in Use at Home: No Hx Sleep Apnea: No Sleep Apnea Screening Result - Last Documented: Positive Pulmonary History Comment: occ sob when walking, DOES SOME STAIRS,. pt has had DVTs in the past,. on ASA to prevent - Neurologic History Hx Cerebrovascular Accident: No Hx Seizures: No Hx Dementia: No - Endocrine History Hx Diabetes: Yes Endocrine History Comment: IDDM - Renal History Hx Renal Disorders: Yes Renal History Comment: stones young women. UTIs several years past - Liver History Hx Hepatic Disorders: No - Neurological & Psychiatric Hx Hx Neurological and Psychiatric Disorders: Yes Neurological / Psychiatric History Comment: anxiety, depression - Cancer History Hx Cancer: Yes Cancer History Comment: melanoma currently - Congenital Disorder History Hx Congenital Disorders: No - GI History Hx Gastrointestinal Disorders: Yes Gastrointestinal History Comment: bowel nicked 2012 during hernia surg. per pt. Ended up with colostomy, has been removed - Other Health History Other Health History: mild cataract R eye. no upper teeth, 5 teeth bottom - Chronic Pain History Chronic Pain: No - Surgical History Prior Surgeries: multiple abd/bowel surg. Ileostomy&colostomy done, one bag. tonsils out young child. total hyst. 1986. umbilical and R inguinal hernia surg 04/30/13 leading to bowel issues. ileostomy and colostomy takedown 02/23 ANE Review of Systems Review of Systems: ANE Patient History - Allergies Allergies/Adverse Reactions: diphenhydramine [From Benadryl] Allergy (Verified 09/30/17 19:18) - Home Medications Home Medications: Aspirin EC [Aspirin EC 81 mg (*)] 81 mg PO DAILY 03/22/16 [Last Taken 10/15/17] Atorvastatin Calcium [Lipitor 40 mg (*)] 40 mg PO DAILY 03/22/16 [Last Taken 02/26] Cholecalciferol Vit D3 [Vitamin D3 2000 units tab (OTC)] 2,000 units PO DAILY [Last Taken 10/15/17] Fluticasone Nasal [Flonase Nasal [place]] 1 sprays NASAL DAILY PRN 03/22/16 [Last Taken Unknown] Insulin Detemir [Levemir] 10 unit SQ HS 03/22/16 [Last Taken 10/14/17] Losartan Potassium [Cozaar 25 mg (*)] 25 mg PO HS 03/22/16 [Last Taken 10/14/17] Meclizine HCl [Meclizine HCl 25 mg (RX,OTC)] 25 mg PO DAILY PRN 03/22/16 [Last Taken 08/23/17] Propranolol HCl [Inderal 10mg (*)] 10 mg PO DAILY 03/22/16 [Last Taken 10/15/17] Loratadine 10 mg PO DAILY PRN 08/24/17 [Last Taken Unknown] Meloxicam 15 mg PO HS 08/24/17 [Last Taken 10/14/17] Vitamin B Complex [B Complex] 1 each PO DAILY 08/24/17 [Last Taken 10/15/17] metFORMIN HCL [Glucophage 500 mg (*)] 500 mg PO BIDMEAL 08/24/17 [Last Taken 02/26 09:00] traMADol [Ultram 50 mg (*)] 50 mg PO DAILY PRN 08/24/17 [Last Taken 09/30/17] Calcium Carbonate [[place] Calcium 500 mg (*)] 500 mg PO DAILY 10/16/17 [ Last Taken 10/15/17] Gabapentin [Neurontin 300 MG (*)] 300 mg PO HS 10/16/17 [Last Taken 10/14/17] Mirtazapine [Remeron] 15 mg PO HS 10/16/17 [Last Taken 10/14/17] - NPO status NPO Since - Liquids (Date): 10/15/17 NPO Since - Liquids (Time): 23:59 NPO Since - Solids (Date): 10/15/17 NPO Since - Solids (Time): 23:59 - Smoking Hx Smoking Status: Never smoked - Alcohol Use Alcohol Use: None - Family Anes Hx Family Hx Anesthesia Complications: none ANE Labs/Vital Signs - Labs Result Diagrams: 10/16/17 06:20 10/16/17 06:20 - Vital Signs Blood Pressure: 138/90 Heart Rate: 97 Respiratory Rate: 17 O2 Sat (%): 95 Height: 121.92 cm Weight: 65.8 kg ANE Physical Exam - Airway Neck exam: FROM Mallampati Score: Class 1 Mouth exam: dentures - Pulmonary Pulmonary: no respiratory distress, no rales or rhonchi, clear to auscultation, reduced air movement - Cardiovascular Cardiovascular: regular rate and rhythym, no murmur, rub, or gallop - ASA Status ASA Status: III ANE Anesthesia Plan Anesthesia Plan: general endotracheal anesthesia
[2017-10-16] MEDS ORDERED: SUGAMMADEX SODIUM 200 MG/2 ML VIAL IVP ONE (19:14)
[2017-10-16] MEDS ORDERED: ROCURONIUM 50 MG/5 ML VIAL ONE (19:14)
[2017-10-16] MEDS ORDERED: LIDOCAINE 2% 5 ML SDV ONE (19:14)
[2017-10-16] MEDS ORDERED: ONDANSETRON 4 MG/2 ML VIAL ONE (19:14)
[2017-10-16] MEDS ORDERED: CALCIUM CHLORIDE 1 GM/10 ML INJ ONE (19:14)
[2017-10-16 19:22] LABS: HEMATOCRIT 29.4 % (38.0-47.0); HEMOGLOBIN 9.7 g/dL (12.6-16.3)
[2017-10-16] MEDS ORDERED: ALBUMIN 5% 250 ML BOTTLE IV ONE (19:58)
--- NOTE | 2017-10-16 20:09 | POSTOPPROG ---
Post Op Note Date of Operation: 10/16/17 Surgeon: Evert Gordon Anesthesiologist: RUTH Anesthesia: GET(General Endotracheal) Pre-op Diagnosis: ACUTE CHOLECYSTITIS Post-op Diagnosis: SAME PLUS POSSIBLE HEPATITIS Indication: RIGHT UPPER QUADRANT PAIN AND GALLSTONES Findings: SWOLLEN LIVER, FROZEN ABDOMEN WITH A ADHESIONS, CHOLELITHIASIS WITH SMALL D Inf/Abcess present in the surg proc area at time of surgery?: Yes Depth: Organ Space EBL: 50-100 Complications: NONE Specimen(s): GALLBLADDER
[2017-10-16] MEDS ORDERED: fentaNYL 100 MCG/2 ML INJ IVP PRN (20:13)
--- NOTE | 2017-10-16 20:15 | POSTANESTH ---
Post Anesthetic Evaluation Cardiovascular Status: Normal, Stable, Similar to Pre-Op Cond Respiratory Status: Normal, Stable, Similar to Pre-op Cond. Level of Consciousness/Mental Status: Mildly Sleepy, Arousable Pain Control: Adequate, Prn Tx Ordered Nausea/Vomiting Control: Adequate, Prn Tx Ordered Complications Possibly Related to Anesthesia: None Noted
[2017-10-16] MEDS ORDERED: NON-FORMULARY NEW DRUG (Meloxicam [Meloxicam] 15 MG) PO SCH (21:00)
[2017-10-16] MEDS ORDERED: INSULIN GLARGINE 100 UNITS/ML SYRINGE SC SCH (21:00)
[2017-10-16] MEDS ORDERED: NON-FORMULARY NEW DRUG (Mirtazapine [Remeron] 15 MG) PO SCH (21:00)
[2017-10-16] MEDS ORDERED: NON-FORMULARY NEW DRUG (Insulin Detemir [Levemir] 10 UNIT) SQ SCH (21:00)
[2017-10-16] MEDS: D5W 1/2 NS W/ 20 KCl/L 1,000 ML IV SCH (21:59)
[2017-10-16] MEDS: GABAPENTIN 300 MG CAP PO SCH (22:00)
[2017-10-16] MEDS: LOSARTAN POTASSIUM 25 MG TAB PO SCH (22:00)
[2017-10-16] MEDS: MIRTAZAPINE 15 MG TAB PO SCH (22:01)
[2017-10-16] MEDS: OXYCODONE/APAP 5/325 TAB PO PRN (22:14)
[2017-10-16] MEDS: INSULIN GLARGINE 100 UNITS/ML SYRINGE SC SCH (22:25)
[2017-10-17] MEDS: OXYCODONE/APAP 5/325 TAB PO PRN ×2 (03:20→21:28)
[2017-10-17 04:51] LABS: % IMMATURE GRANULYOCYTES 0.3 % (0.0-1.1); ABSOLUTE IMMATURE GRANULOCYTES 0.03 10^3/uL (0.00-0.10); ADD DIFF? NO; ADD MORPH? NO; ADD SCAN? NO; ATYPICAL LYMPHOCYTE FLAG 0 (0-99); FRAGMENT RBC FLAG 0 (0-99); HEMATOCRIT 27.4 % (38.0-47.0); HEMOGLOBIN 8.8 g/dL (12.6-16.3); LEFT SHIFT FLG 0 (0-99); LIPEMIA HEMOLYSIS FLAG 80 (0-99); MEAN CELL HEMOGLOBIN 28.1 pg (27.9-34.1); MEAN CELL HEMOGLOBIN CONCENTR. 32.1 g/dL (32.4-36.7); MEAN CELL VOLUME 87.5 fL (81.5-99.8); MEAN PLATELET VOLUME 10.4 fL (8.7-11.7); PLATELET CLUMPS FLAG 0 (0-99); PLATELET COUNT 275 10^3/uL (150-400); RED BLOOD CELL COUNT 3.13 10^6/uL (4.18-5.33); RED CELL DISTRIBUTION WIDTH 14.4 % (11.5-15.2)
[2017-10-17 05:04] LABS: ALANINE AMINOTRANSFERASE 283 IU/L (9-52); ALBUMIN 3.3 g/dL (3.5-5.0); ALKALINE PHOSPHATASE 122 IU/L (38-126); AMYLASE 47 IU/L (30-110); ANION GAP 10 mEq/L (8-16); ASPARTATE AMINOTRANSFERASE 236 IU/L (14-46); BILIRUBIN-CONJUGATED 0.4 mg/dL (0.0-0.5); BILIRUBIN-UNCONJUGATED 0.6 mg/dL (0.0-1.1); CARBON DIOXIDE 24 mEq/l (22-31); CHLORIDE 103 mEq/L (97-110); CREATININE 0.7 mg/dL (0.6-1.0); GLOMERULAR FILTRATION RATE > 60; GLUCOSE 131 mg/dL (70-100); POTASSIUM 4.5 mEq/L (3.5-5.2); SODIUM 137 mEq/L (134-144); TOTAL PROTEIN 5.4 g/dL (6.3-8.2)
[2017-10-17] MEDS: D5W 1/2 NS W/ 20 KCl/L 1,000 ML IV SCH ×2 (06:20→16:43)
[2017-10-17] MEDS: ASPIRIN EC 81 MG TAB PO SCH (09:06)
[2017-10-17] MEDS: ATORVASTATIN CALCIUM 40 MG TAB PO SCH (09:06)
[2017-10-17] MEDS: CALCIUM CARBONATE 500 MG TAB PO SCH (09:06)
[2017-10-17] MEDS: ERTAPENEM 1 GM VIAL IVP SCH (09:07)
[2017-10-17] MEDS: PROPRANOLOL HCL 10 MG TAB PO SCH (09:21)
[2017-10-17] MEDS: INSULIN LISPRO 100 UNIT/ML SC SCH ×3 (09:22→18:11)
--- NOTE | 2017-10-17 10:54 | GOP ---
[f rep st] OPERATIVE REPORT DATE OF OPERATION: 10/16/2017 SURGEON: Evert Gordon MD BLANCHING MACHINE OPERATOR: None. ANESTHESIOLOGIST: Dr. Owen. PREOPERATIVE DIAGNOSIS: Acute cholecystitis. POSTOPERATIVE DIAGNOSIS: Acute cholecystitis plus multiple liver cysts. PROCEDURE PERFORMED: Attempted laparoscopy with open cholecystectomy and wedge liver biopsy. FINDINGS: Patient was found to have inflamed gallbladder containing stones. Her cystic duct was ryan te small and could not facilitate the cholangiogram catheter. The liver was markedly enlarged and sw ollen with multiple cysts throughout. DESCRIPTION OF PROCEDURE: Patient was taken to the operating room where she received satisfactory en dotracheal anesthesia by Dr. Owen. She was placed in supine position, prepped and draped in usual sterile fashion. A short incision was made in the epigastrium. Dissection carried down through the fascia, which was incised. Peritoneum was incised. However, no free space could be found in the abdominal cavity to place a tro car. Attempt was made in the left upper quadrant laterally. A short incision was made and a Veress needle was inserted. Pneumoperitoneum was established. Trocar was attempted to be passed, but no fr ee space was seen and the attempt was discontinued. Trocar was removed and that wound was closed wit h 4-0 Monocryl subcuticular sutures. It was elected to proceed at this point with an open procedure. A right subcostal incision was made and carried through the subcutaneous tissue and through the rec tus sheath. The rectus abdominis was then divided with electrocautery and the posterior sheath was o pened. The abdomen was carefully entered. Minimal space was found to work. The liver was quite lar ge, filling up most of the space. Adhesions were taken down sharply or with electrocautery until the gallbladder could be identified. The gallbladder was somewhat inflamed, but not horribly so. It wa s carefully dissected free from surrounding tissue including the colon and the duodenum. The cystic triangle was exposed. The gallbladder was taken down from the fundus down carefully with electrocaut tavon off the bed of the liver. Cystic artery was multiply hemoclipped and divided and the cystic duct was isolated. Incision was made in the cystic duct. A cholangiogram catheter was introduced but wo uld not pass satisfactorily for cholangiogram. Eventually, that attempt was discontinued. The cysti c duct was multiply hemoclipped and divided. The gallbladder was removed. Hemostasis was assured. Wound was irrigated. The previous trocar site attempt was examined with no evidence of any significa nt injury or even penetration into the abdomen. Wound was closed using 0 Vicryl for the posterior sh eath and 0 PDS for the anterior sheath. Wound was infiltrated with 0.5% Marcaine and Marcaine cathet er was brought in from a lateral position and placed between the anterior and posterior sheaths for M arcaine installation. Subcu was then closed with 3-0 Vicryl and skin with skin charito. The cathete r was secured at the exit site with a silk suture. She tolerated the procedure reasonably well. Blo od loss was less than 100 mL. There were no complications. A wedge biopsy was taken of the right lo be of the liver because of its abnormal appearance and her elevated LFTs. Hemostasis obtained with e lectrocautery and the wound was closed with 0 Vicryl [id number] suture. She tolerated procedure well. She was taken to recovery room in good condition. There were no complications. /[id number]/MODL
[2017-10-17] MEDS: BUPIVACAINE 0.5% 10 ML SDV MISC SCH ×3 (13:29→21:29)
--- NOTE | 2017-10-17 14:39 | HOSPPROG ---
Hospitalist Progress Note Assessment/Plan: 72-year-old with multiple medical issues is admitted with acute onset of abdominal pain. now pod 1 from open cholecystectomy abdominal pain: post surgical sleeping when I saw her continue current rx choledocholithiasis: s/p CCY imaging suggestive of stone that has passed continue current rx diabetes: Will continue her Lantus and add p.r.n. sliding scale as needed and hold the metformin due to recent dye load hypertension: Stable resume her medications as needed peripheral neuropathy chronic pain on tramadol daily proph: add lmwh Subjective: somnolent but arousable. case dw Pennie Emmanuel, gen surg PA Objective: Vital Signs Temp Pulse Resp BP Pulse Ox 36.6 C 90 16 85/39 L 99 10/17/17 11:31 10/17/17 13:43 10/17/17 13:43 10/17/17 13:43 10/17/17 13:43 Laboratory Results 10/17/17 04:33 10/17/17 04:33 10/16/17 10/17/17 10/18/17 05:59 05:59 05:59 Intake Total 2555 Output Total 1025 Balance 1530 PT 12.8 SEC (12.0-15.0) 10/16/17 06:20 INR 0.94 (0.83-1.16) 10/16/17 06:20 - Physical Exam Constitutional: no apparent distress, appears nourished Eyes: PERRL, anicteric sclera Ears, Nose, Mouth, Throat: moist mucous membranes, hearing normal Cardiovascular: regular rate and rhythym, no murmur, rub, or gallop, No tachycardia Respiratory: no respiratory distress, no rales or rhonchi Gastrointestinal: No normoactive bowel sounds, No guarding, No rebound Genitourinary: no bladder fullness, No mera in urethra Skin: warm, normal color Musculoskeletal: full muscle strength Neurologic: AAOx3 Psychiatric: interacting appropriately ICD10 Worksheet Patient Problems: Problems Problem Status Onset Abdominal pain Acute Common bile duct dilation Acute Transaminitis Acute Adynamic ileus Acute Diabetes Acute Headache Acute
[2017-10-17] MEDS: traMADol 50 MG TAB PO PRN (15:18)
--- NOTE | 2017-10-17 17:42 | SOAPPROG ---
SOAP Progress Note Assessment/Plan: Assessment/Plan: 72 Y F known to us from colostomy takedown, VH repair, melanoma excision, and recent SBO resolved c conservative management. Admitted with upper abdominal pain, elevated LFTs. s/p open cholecystectomy, POD#1. Seen earlier today. Comfortable. LFTs same/slightly better. Tolerating clears. Continue routine post op care. S: sleeping comfortably. easily arousable O: nad, mmm, no jaundice, no wob, abd soft, appropriately ttp, subcostal inc well dressed. 10/17/17 17:40 Objective: Vital Signs Temp Pulse Resp BP Pulse Ox 37.3 C 89 16 90/53 L 97 10/17/17 15:30 10/17/17 15:30 10/17/17 15:30 10/17/17 15:30 10/17/17 15:30 Laboratory Results 10/17/17 04:33 10/17/17 04:33 10/16/17 10/17/17 10/18/17 05:59 05:59 05:59 Intake Total 2555 200 Output Total 1025 600 Balance 1530 -400 PT 12.8 SEC (12.0-15.0) 10/16/17 06:20 INR 0.94 (0.83-1.16) 10/16/17 06:20 ICD10 Worksheet Patient Problems: Problems Problem Status Onset Abdominal pain Acute Common bile duct dilation Acute Transaminitis Acute Adynamic ileus Acute Diabetes Acute Headache Acute
[2017-10-17] MEDS: LOSARTAN POTASSIUM 25 MG TAB PO SCH (21:24)
[2017-10-17] MEDS: INSULIN GLARGINE 100 UNITS/ML SYRINGE SC SCH (21:28)
[2017-10-17] MEDS: GABAPENTIN 300 MG CAP PO SCH (21:28)
[2017-10-17] MEDS: MIRTAZAPINE 15 MG TAB PO SCH (21:53)
[2017-10-17] MEDS ORDERED: NS 500 ML IV ONE (23:39)
[2017-10-18] MEDS: BUPIVACAINE 0.5% 10 ML SDV MISC SCH ×6 (01:01→20:57)
[2017-10-18] MEDS: D5W 1/2 NS W/ 20 KCl/L 1,000 ML IV SCH (05:08)
[2017-10-18 05:27] LABS: ALANINE AMINOTRANSFERASE 172 IU/L (9-52); ALBUMIN 2.6 g/dL (3.5-5.0); ALKALINE PHOSPHATASE 99 IU/L (38-126); AMYLASE 35 IU/L (30-110); ANION GAP 8 mEq/L (8-16); ASPARTATE AMINOTRANSFERASE 85 IU/L (14-46); BILIRUBIN,TOTAL 0.6 mg/dL (0.1-1.4); BILIRUBIN-CONJUGATED 0.2 mg/dL (0.0-0.5); BILIRUBIN-UNCONJUGATED 0.4 mg/dL (0.0-1.1); CALCIUM 8.3 mg/dL (8.5-10.4); CARBON DIOXIDE 24 mEq/l (22-31); CHLORIDE 106 mEq/L (97-110); GLOMERULAR FILTRATION RATE 55; GLUCOSE 108 mg/dL (70-100); POTASSIUM 4.8 mEq/L (3.5-5.2); SODIUM 138 mEq/L (134-144); TOTAL PROTEIN 4.8 g/dL (6.3-8.2)
[2017-10-18] MEDS: OXYCODONE/APAP 5/325 TAB PO PRN ×2 (06:23→21:00)
[2017-10-18] MEDS: PROPRANOLOL HCL 10 MG TAB PO SCH (08:36)
[2017-10-18] MEDS: ASPIRIN EC 81 MG TAB PO SCH (10:06)
[2017-10-18] MEDS: ATORVASTATIN CALCIUM 40 MG TAB PO SCH (10:06)
[2017-10-18] MEDS: CALCIUM CARBONATE 500 MG TAB PO SCH (10:07)
[2017-10-18] MEDS: INSULIN LISPRO 100 UNIT/ML SC SCH ×3 (10:11→19:35)
[2017-10-18] MEDS: ENOXAPARIN 40 MG/0.4 ML SYR SC SCH (10:11)
[2017-10-18] MEDS: ERTAPENEM 1 GM VIAL IVP SCH (10:29)
--- NOTE | 2017-10-18 11:20 | HOSPPROG ---
Hospitalist Progress Note Assessment/Plan: 72-year-old with multiple medical issues is admitted with acute onset of abdominal pain. now pod 1 from open cholecystectomy hypotension: doubt sepsis perhaps pain med related clinically euvolemic but may be third spacing will bolus LR, dc hypotonic fluids propranolol held urinary retention: likely 2/2 pain meds avoid straight cath until sx sleepiness: back off pain meds abdominal pain: post surgical sleeping when I saw her continue current rx choledocholithiasis: s/p CCY imaging suggestive of stone that has passed continue current rx diabetes: Will continue her Lantus and add p.r.n. sliding scale as needed and hold the metformin due to recent dye load hypertension: Stable resume her medications as needed peripheral neuropathy chronic pain on tramadol daily proph: add lmwh Subjective: case d.w dr harden. had soft blood pressures overnight Objective: Vital Signs Temp Pulse Resp BP Pulse Ox 37.0 C 88 17 97/55 L 96 10/18/17 08:06 10/18/17 10:29 10/18/17 08:06 10/18/17 11:13 10/18/17 08:06 Laboratory Results 10/17/17 04:33 10/18/17 03:46 10/17/17 10/18/17 10/19/17 05:59 05:59 05:59 Intake Total 2555 2751 Output Total 1025 1200 750 Balance 1530 1551 -750 PT 12.8 SEC (12.0-15.0) 10/16/17 06:20 INR 0.94 (0.83-1.16) 10/16/17 06:20 - Physical Exam Constitutional: other (sleeping but easliy arousable) Eyes: PERRL, anicteric sclera Ears, Nose, Mouth, Throat: moist mucous membranes, hearing normal Cardiovascular: regular rate and rhythym, no murmur, rub, or gallop Respiratory: no respiratory distress, no rales or rhonchi Gastrointestinal: soft, non-tender abdomen, No normoactive bowel sounds, No guarding, No rebound Genitourinary: no bladder fullness, No mera in urethra Skin: warm, normal color Musculoskeletal: full muscle strength Neurologic: AAOx3 Psychiatric: interacting appropriately Lymph, Heme, Immunologic: no cervical LAD ICD10 Worksheet Patient Problems: Problems Problem Status Onset Abdominal pain Acute Common bile duct dilation Acute Transaminitis Acute Adynamic ileus Acute Diabetes Acute Headache Acute
[2017-10-18] MEDS ORDERED: LR 1,000 ML IV SCH (11:30)
--- NOTE | 2017-10-18 12:44 | ASMTCMCOM ---
CM Note CM Note Notes: Pt recovering from open rashid. PT recommending HC vs SNF, OT recs SNF. Attempted to discuss DC options with pt but per PCS she has been sleeping all day and cannot stay awake after being woken up. Lalita from [facility] called for an update. Pt will need to be evaluated by them before returning if she does not go to SNF first. PH # is [phone]. DC not likely for a few more days. C/M to follow. Date Signed: 10/18/2017 12:43 PM Electronically Signed By:Jennifer Suazo LCSW
[2017-10-18 16:11] LABS: % IMMATURE GRANULYOCYTES 0.2 % (0.0-1.1); ABSOLUTE IMMATURE GRANULOCYTES 0.02 10^3/uL (0.00-0.10); ADD DIFF? NO; ADD MORPH? NO; ADD SCAN? NO; ATYPICAL LYMPHOCYTE FLAG 0 (0-99); FRAGMENT RBC FLAG 0 (0-99); HEMATOCRIT 26.5 % (38.0-47.0); HEMOGLOBIN 8.2 g/dL (12.6-16.3); LEFT SHIFT FLG 0 (0-99); LIPEMIA HEMOLYSIS FLAG 80 (0-99); MEAN CELL HEMOGLOBIN 28.5 pg (27.9-34.1); MEAN CELL HEMOGLOBIN CONCENTR. 30.9 g/dL (32.4-36.7); MEAN PLATELET VOLUME 10.3 fL (8.7-11.7); PLATELET CLUMPS FLAG 0 (0-99); PLATELET COUNT 256 10^3/uL (150-400); RED BLOOD CELL COUNT 2.88 10^6/uL (4.18-5.33); RED CELL DISTRIBUTION WIDTH 14.7 % (11.5-15.2)
[2017-10-18] MEDS: INSULIN GLARGINE 100 UNITS/ML SYRINGE SC SCH (20:57)
[2017-10-18] MEDS: GABAPENTIN 300 MG CAP PO SCH (20:57)
[2017-10-18] MEDS: MIRTAZAPINE 15 MG TAB PO SCH (20:57)
[2017-10-19] MEDS: BUPIVACAINE 0.5% 10 ML SDV MISC SCH ×6 (01:28→22:38)
[2017-10-19] MEDS: OXYCODONE/APAP 5/325 TAB PO PRN (02:22)
[2017-10-19 05:24] LABS: % IMMATURE GRANULYOCYTES 0.3 % (0.0-1.1); ABSOLUTE IMMATURE GRANULOCYTES 0.02 10^3/uL (0.00-0.10); ADD DIFF? NO; ADD MORPH? NO; ADD SCAN? NO; ATYPICAL LYMPHOCYTE FLAG 0 (0-99); FRAGMENT RBC FLAG 0 (0-99); HEMATOCRIT 26.1 % (38.0-47.0); HEMOGLOBIN 8.3 g/dL (12.6-16.3); LEFT SHIFT FLG 0 (0-99); LIPEMIA HEMOLYSIS FLAG 80 (0-99); MEAN CELL HEMOGLOBIN 28.9 pg (27.9-34.1); MEAN CELL HEMOGLOBIN CONCENTR. 31.8 g/dL (32.4-36.7); MEAN CELL VOLUME 90.9 fL (81.5-99.8); MEAN PLATELET VOLUME 10.5 fL (8.7-11.7); PLATELET CLUMPS FLAG 0 (0-99); PLATELET COUNT 266 10^3/uL (150-400); RED BLOOD CELL COUNT 2.87 10^6/uL (4.18-5.33); RED CELL DISTRIBUTION WIDTH 14.4 % (11.5-15.2)
[2017-10-19 05:33] LABS: ALANINE AMINOTRANSFERASE 133 IU/L (9-52); ALBUMIN 2.8 g/dL (3.5-5.0); ALKALINE PHOSPHATASE 106 IU/L (38-126); ANION GAP 10 mEq/L (8-16); ASPARTATE AMINOTRANSFERASE 52 IU/L (14-46); BILIRUBIN,TOTAL 0.6 mg/dL (0.1-1.4); CALCIUM 8.9 mg/dL (8.5-10.4); CARBON DIOXIDE 26 mEq/l (22-31); CHLORIDE 105 mEq/L (97-110); CREATININE 0.7 mg/dL (0.6-1.0); GLOMERULAR FILTRATION RATE > 60; GLUCOSE 91 mg/dL (70-100); POTASSIUM 4.6 mEq/L (3.5-5.2); SODIUM 141 mEq/L (134-144); TOTAL PROTEIN 4.8 g/dL (6.3-8.2)
[2017-10-19] MEDS: ENOXAPARIN 40 MG/0.4 ML SYR SC SCH (10:00)
[2017-10-19] MEDS: ASPIRIN EC 81 MG TAB PO SCH (10:20)
[2017-10-19] MEDS: ERTAPENEM 1 GM VIAL IVP SCH (10:20)
[2017-10-19] MEDS: ATORVASTATIN CALCIUM 40 MG TAB PO SCH (10:20)
[2017-10-19] MEDS: CALCIUM CARBONATE 500 MG TAB PO SCH (10:20)
[2017-10-19] MEDS: INSULIN LISPRO 100 UNIT/ML SC SCH ×3 (10:22→18:51)
--- NOTE | 2017-10-19 11:52 | SOAPPROG ---
SOAP Progress Note Assessment/Plan: Assessment: AFEBRILE/ WOUND OK/ CO SOME PAIN/ EATING OK/ LABS IMPROVING/ PATH PENDING Plan:[facility] DIET/ DC KRISTINA DYE Sunday10/19/17 11:51 Objective: Vital Signs Temp Pulse Resp BP Pulse Ox 36.9 C 93 16 104/48 L 99 10/19/17 11:44 10/19/17 11:44 10/19/17 11:44 10/19/17 11:44 10/19/17 11:44 Laboratory Results 10/19/17 04:48 10/19/17 04:48 10/18/17 10/19/17 10/20/17 05:59 05:59 05:59 Intake Total 2751 1601 Output Total 1200 1650 700 Balance 1551 -49 -700 PT 12.8 SEC (12.0-15.0) 10/16/17 06:20 INR 0.94 (0.83-1.16) 10/16/17 06:20 ICD10 Worksheet Patient Problems: Problems Problem Status Onset Abdominal pain Acute Common bile duct dilation Acute Transaminitis Acute Adynamic ileus Acute Diabetes Acute Headache Acute
--- NOTE | 2017-10-19 14:16 | HOSPPROG ---
Hospitalist Progress Note Assessment/Plan: 72-year-old with multiple medical issues is admitted with acute onset of abdominal pain c/w cholecystitis S/P open cholecystectomy in setting of choledocholithiasis, POD #3 cont post-op care per surgery on invanz hypotension: resolved with LR bolus, anti-hypertensives held urinary retention: likely 2/2 pain meds, resolved diabetes: basal / bolus insulin. MTF held. hypertension: meds held as above, resume when indicated peripheral neuropathy chronic pain on tramadol daily proph: lmwh dispo: cont inpt, likely needs SNF Subjective: Pt doing better. Walked in room with walker and PT. Voiding now. No BM's. No fevers. Objective: Vital Signs Temp Pulse Resp BP Pulse Ox 36.9 C 93 16 104/48 L 99 10/19/17 11:44 10/19/17 11:44 10/19/17 11:44 10/19/17 11:44 10/19/17 11:44 Laboratory Results 10/19/17 04:48 10/19/17 04:48 10/18/17 10/19/17 10/20/17 05:59 05:59 05:59 Intake Total 2751 1601 Output Total 1200 1650 1200 Balance 1551 -49 -1200 PT 12.8 SEC (12.0-15.0) 10/16/17 06:20 INR 0.94 (0.83-1.16) 10/16/17 06:20 - Physical Exam Constitutional: no apparent distress Eyes: PERRL Ears, Nose, Mouth, Throat: moist mucous membranes Cardiovascular: regular rate and rhythym, no murmur, rub, or gallop Respiratory: no respiratory distress, clear to auscultation Gastrointestinal: normoactive bowel sounds, soft, non-tender abdomen, other ( incision c/d/i) Skin: warm Musculoskeletal: generalized weakness Neurologic: AAOx3 Psychiatric: interacting appropriately ICD10 Worksheet Patient Problems: Problems Problem Status Onset Abdominal pain Acute Common bile duct dilation Acute Transaminitis Acute Adynamic ileus Acute Diabetes Acute Headache Acute
--- NOTE | 2017-10-19 16:11 | ASMTCMCOM ---
CM Note CM Note Notes: Pt more alert today and able to have conversation about dc poc. Discussed option of SNF rehab vs HHC. Pt does feel at this time that she would benefit from rehab. She would like to go to [facility] b/c her is resident there. Discussed also with her cousin Briseida, , who alex gave me permission to discuss with. Briseida also felt [facility] would be best option w/ being there. Referral sent to [facility] and spoke w/Yessenia. They are not contacted w/pt's insurance, [email or web address], but Yessenia said they could possibly do a one time contract with them. They will submit for this and if this is not able to happen pt wo agreeable to [facility] or [facility]- would want to clarify w/pt and her cousin what their 1st chice of these two are if pt not able to go to [facility]. If pt is not able to go to [facility] Yessenia did say that they would try to take her Nehemias to see her at SNF. Will most likely not get auth from insurance co until Sunday at this point. CM will follow. Date Signed: 10/19/2017 04:11 PM Electronically Signed By:Katrina Peña RN
[2017-10-19] MEDS: GABAPENTIN 300 MG CAP PO SCH (22:38)
[2017-10-19] MEDS: MIRTAZAPINE 15 MG TAB PO SCH (22:39)
[2017-10-19] MEDS: INSULIN GLARGINE 100 UNITS/ML SYRINGE SC SCH (22:56)
[2017-10-20] MEDS: BUPIVACAINE 0.5% 10 ML SDV MISC SCH ×6 (01:40→21:17)
[2017-10-20] MEDS: INSULIN LISPRO 100 UNIT/ML SC SCH ×3 (10:13→18:51)
[2017-10-20] MEDS: ENOXAPARIN 40 MG/0.4 ML SYR SC SCH (10:14)
[2017-10-20] MEDS: ERTAPENEM 1 GM VIAL IVP SCH (10:14)
[2017-10-20] MEDS: PROPRANOLOL HCL 10 MG TAB PO SCH (10:15)
[2017-10-20] MEDS: ASPIRIN EC 81 MG TAB PO SCH (10:15)
[2017-10-20] MEDS: ATORVASTATIN CALCIUM 40 MG TAB PO SCH (10:15)
[2017-10-20] MEDS: CALCIUM CARBONATE 500 MG TAB PO SCH (10:15)
[2017-10-20] MEDS: OXYCODONE/APAP 5/325 TAB PO PRN ×2 (10:15→21:17)
--- NOTE | 2017-10-20 10:29 | HOSPPROG ---
Hospitalist Progress Note Assessment/Plan: 72-year-old with multiple medical issues is admitted with acute onset of abdominal pain c/w cholecystitis S/P open cholecystectomy in setting of choledocholithiasis, POD #4 cont post-op care per surgery dc invanz hypotension: responded to boluses previously repeat NS bolus today anti-hypertensives held urinary retention: likely 2/2 pain meds, resolved diabetes: basal / bolus insulin. MTF held. hypertension: meds held as above, resume when indicated Overweight w/ BMI 44.3, impacting care & recovery peripheral neuropathy chronic pain on tramadol daily proph: lmwh dispo: cont inpt, likely needs SNF Subjective: Pt feels better. Up in chair. Denies lightheadedness or dizziness. No CP or SOB. No abdominal pain, N/V. Eating today, drinking fluids. No BM, but passing flatus. Objective: Vital Signs Temp Pulse Resp BP Pulse Ox 36.8 C 105 H 19 120/70 92 10/20/17 08:55 10/20/17 08:55 10/20/17 08:55 10/20/17 08:55 10/20/17 08:55 Laboratory Results 10/19/17 04:48 10/19/17 04:48 10/19/17 10/20/17 10/21/17 05:59 05:59 05:59 Intake Total 1601 300 Output Total 1650 1600 350 Balance -49 -1300 -350 PT 12.8 SEC (12.0-15.0) 10/16/17 06:20 INR 0.94 (0.83-1.16) 10/16/17 06:20 - Physical Exam Constitutional: no apparent distress Eyes: PERRL Ears, Nose, Mouth, Throat: moist mucous membranes Cardiovascular: regular rate and rhythym, no murmur, rub, or gallop Respiratory: no respiratory distress, clear to auscultation Gastrointestinal: normoactive bowel sounds, soft, non-tender abdomen Skin: warm Musculoskeletal: full muscle strength Neurologic: AAOx3 Psychiatric: interacting appropriately ICD10 Worksheet Patient Problems: Problems Problem Status Onset Abdominal pain Acute Common bile duct dilation Acute Transaminitis Acute Adynamic ileus Acute Diabetes Acute Headache Acute
--- NOTE | 2017-10-20 13:07 | SOAPPROG ---
SOHASEEB Progress Note Assessment/Plan: Assessment: AFEBRILE/ WOUND OK/ CO SOME PAIN/ EATING OK/ LABS IMPROVING/ PATH PENDING Plan:[facility] DIET/ DC KRISTINA DYE Sunday10/19/17 11:51 10/20/17 13:06 Much improved today with less pain/afebrile/wound okay/path benign/afebrile/ vital signs okay/urine output marginal To a rehab soon Objective: Vital Signs Temp Pulse Resp BP Pulse Ox 36.9 C 76 17 82/46 L 97 10/20/17 12:15 10/20/17 12:15 10/20/17 12:15 10/20/17 12:15 10/20/17 12:15 Laboratory Results 10/19/17 04:48 10/19/17 04:48 10/19/17 10/20/17 10/21/17 05:59 05:59 05:59 Intake Total 1601 300 Output Total 1650 1600 350 Balance -49 -1300 -350 PT 12.8 SEC (12.0-15.0) 10/16/17 06:20 INR 0.94 (0.83-1.16) 10/16/17 06:20 ICD10 Worksheet Patient Problems: Problems Problem Status Onset Abdominal pain Acute Common bile duct dilation Acute Transaminitis Acute Adynamic ileus Acute Diabetes Acute Headache Acute
[2017-10-20] MEDS ORDERED: NS 500 ML IV ONE (14:43)
[2017-10-20] MEDS: INSULIN GLARGINE 100 UNITS/ML SYRINGE SC SCH (21:16)
[2017-10-20] MEDS: GABAPENTIN 300 MG CAP PO SCH (21:17)
[2017-10-20] MEDS: MIRTAZAPINE 15 MG TAB PO SCH (21:17)
[2017-10-21] MEDS: BUPIVACAINE 0.5% 10 ML SDV MISC SCH ×4 (01:32→12:35)
[2017-10-21] MEDS: OXYCODONE/APAP 5/325 TAB PO PRN ×3 (03:26→12:35)
[2017-10-21 04:34] LABS: HEMATOCRIT 25.4 % (38.0-47.0); MEAN CELL HEMOGLOBIN 28.2 pg (27.9-34.1); MEAN CELL HEMOGLOBIN CONCENTR. 31.5 g/dL (32.4-36.7); MEAN CELL VOLUME 89.4 fL (81.5-99.8); RED BLOOD CELL COUNT 2.84 10^6/uL (4.18-5.33); RED CELL DISTRIBUTION WIDTH 13.7 % (11.5-15.2)
[2017-10-21 04:53] LABS: ALANINE AMINOTRANSFERASE 77 IU/L (9-52); ALBUMIN 2.8 g/dL (3.5-5.0); ALKALINE PHOSPHATASE 104 IU/L (38-126); ANION GAP 10 mEq/L (8-16); ASPARTATE AMINOTRANSFERASE 26 IU/L (14-46); BILIRUBIN,TOTAL 0.3 mg/dL (0.1-1.4); CALCIUM 8.9 mg/dL (8.5-10.4); CARBON DIOXIDE 31 mEq/l (22-31); CHLORIDE 101 mEq/L (97-110); CREATININE 0.7 mg/dL (0.6-1.0); GLOMERULAR FILTRATION RATE > 60; GLUCOSE 97 mg/dL (70-100); SODIUM 142 mEq/L (134-144); TOTAL PROTEIN 4.9 g/dL (6.3-8.2)
[2017-10-21] MEDS: INSULIN LISPRO 100 UNIT/ML SC SCH ×3 (07:44→17:48)
[2017-10-21] MEDS: ASPIRIN EC 81 MG TAB PO SCH (08:10)
[2017-10-21] MEDS: ATORVASTATIN CALCIUM 40 MG TAB PO SCH (08:10)
[2017-10-21] MEDS: CALCIUM CARBONATE 500 MG TAB PO SCH (08:10)
[2017-10-21] MEDS: ENOXAPARIN 40 MG/0.4 ML SYR SC SCH (08:11)
--- NOTE | 2017-10-21 12:55 | HOSPPROG ---
Hospitalist Progress Note Assessment/Plan: 72-year-old with multiple medical issues is admitted with acute onset of abdominal pain c/w cholecystitis S/P open cholecystectomy in setting of choledocholithiasis, POD #5. Doing well. cont post-op care per surgery hypotension: resolved with NS bolus, anti-hypertensives held urinary retention: likely 2/2 pain meds, resolved diabetes: basal / bolus insulin. MTF held. hypertension: meds held as above, resume when indicated Overweight w/ BMI 44.3, impacting care & recovery peripheral neuropathy chronic pain on tramadol daily proph: lmwh dispo: cont inpt, likely needs SNF Subjective: Pt doing well. Ambulating in halls. +flatus, small BM. No fevers. Pain controlled. Objective: Vital Signs Temp Pulse Resp BP Pulse Ox 36.7 C 86 14 121/58 H 97 10/21/17 11:24 10/21/17 11:24 10/21/17 11:24 10/21/17 11:24 10/21/17 11:24 Laboratory Results 10/21/17 04:20 10/21/17 04:20 10/20/17 10/21/17 10/22/17 05:59 05:59 05:59 Intake Total 300 650 Output Total 1600 1325 400 Balance -1300 -675 -400 PT 12.8 SEC (12.0-15.0) 10/16/17 06:20 INR 0.94 (0.83-1.16) 10/16/17 06:20 - Physical Exam Constitutional: no apparent distress Eyes: PERRL Ears, Nose, Mouth, Throat: moist mucous membranes Cardiovascular: regular rate and rhythym Respiratory: no respiratory distress, clear to auscultation Gastrointestinal: normoactive bowel sounds, soft, non-tender abdomen Skin: warm Musculoskeletal: full muscle strength Neurologic: AAOx3 Psychiatric: interacting appropriately ICD10 Worksheet Patient Problems: Problems Problem Status Onset Abdominal pain Acute Common bile duct dilation Acute Transaminitis Acute Adynamic ileus Acute Diabetes Acute Headache Acute
--- NOTE | 2017-10-21 16:51 | SOAPPROG ---
SOAP Progress Note Assessment/Plan: Assessment: 72yo F s/p open cholecystectomy Regular diet Pain controlled Return of bowel function Removed marcaine cath in anticipation for DC Appreciate hospitalists Dispo: placement at SNF. hopefully today or tomorrow S: Pain is controlled. No nausea. Passing gas and having bowel movements. O: Lying in bed sleeping comfortably, arouses easily. No acute distress No increased work of breathing Positive bowel sounds throughout, soft we distended, nontender. Incision clean , dry and intact without evidence of infection. Marcaine catheter removed without difficulty. 10/21/17 16:53 Objective: Vital Signs Temp Pulse Resp BP Pulse Ox 36.6 C 82 14 90/52 L 98 10/21/17 15:15 10/21/17 15:15 10/21/17 15:15 10/21/17 15:15 10/21/17 15:15 Laboratory Results 10/21/17 04:20 10/21/17 04:20 10/20/17 10/21/17 10/22/17 05:59 05:59 05:59 Intake Total 300 650 Output Total 1600 1325 400 Balance -1300 -675 -400 PT 12.8 SEC (12.0-15.0) 10/16/17 06:20 INR 0.94 (0.83-1.16) 10/16/17 06:20 ICD10 Worksheet Patient Problems: Problems Problem Status Onset Abdominal pain Acute Common bile duct dilation Acute Transaminitis Acute Adynamic ileus Acute Diabetes Acute Headache Acute
[2017-10-21] MEDS: MIRTAZAPINE 15 MG TAB PO SCH (20:28)
[2017-10-21] MEDS: GABAPENTIN 300 MG CAP PO SCH (20:28)
[2017-10-21] MEDS: INSULIN GLARGINE 100 UNITS/ML SYRINGE SC SCH (20:28)
[2017-10-22] MEDS: ASPIRIN EC 81 MG TAB PO SCH (09:35)
[2017-10-22] MEDS: ENOXAPARIN 40 MG/0.4 ML SYR SC SCH (09:35)
[2017-10-22] MEDS: ATORVASTATIN CALCIUM 40 MG TAB PO SCH (09:35)
[2017-10-22] MEDS: CALCIUM CARBONATE 500 MG TAB PO SCH (09:35)
[2017-10-22] MEDS: INSULIN LISPRO 100 UNIT/ML SC SCH ×3 (09:38→18:48)
[2017-10-22] MEDS: OXYCODONE/APAP 5/325 TAB PO PRN ×2 (10:39→22:35)
--- NOTE | 2017-10-22 11:37 | HOSPPROG ---
Hospitalist Progress Note Assessment/Plan: 72-year-old with multiple medical issues is admitted with acute onset of abdominal pain c/w cholecystitis S/P open cholecystectomy in setting of choledocholithiasis, POD #6. Doing well. cont post-op care per surgery hypotension: resolved with NS bolus, anti-hypertensives held urinary retention: likely 2/2 pain meds, resolved diabetes: basal / bolus insulin. MTF held. hypertension: meds held as above, resume when indicated Overweight w/ BMI 44.3, impacting care & recovery peripheral neuropathy chronic pain on tramadol daily proph: lmwh dispo: cont inpt, likely needs SNF, waiting for placement, CM working on this Subjective: Pt doing ok. Some pain in abdomen. No N/V. Tolerating po. Ambulating. No fevers Objective: Vital Signs Temp Pulse Resp BP Pulse Ox 36.4 C 93 17 100/62 93 10/22/17 04:00 10/22/17 09:32 10/22/17 04:00 10/22/17 09:32 10/22/17 09:32 Laboratory Results 10/21/17 04:20 10/21/17 04:20 10/21/17 10/22/17 10/23/17 05:59 05:59 05:59 Intake Total 650 400 Output Total 1325 500 500 Balance -675 -100 -500 PT 12.8 SEC (12.0-15.0) 10/16/17 06:20 INR 0.94 (0.83-1.16) 10/16/17 06:20 - Physical Exam Constitutional: no apparent distress Eyes: PERRL Ears, Nose, Mouth, Throat: moist mucous membranes Cardiovascular: regular rate and rhythym Respiratory: no respiratory distress, clear to auscultation Gastrointestinal: normoactive bowel sounds, soft, non-tender abdomen Skin: warm Musculoskeletal: full muscle strength Neurologic: AAOx3 Psychiatric: interacting appropriately ICD10 Worksheet Patient Problems: Problems Problem Status Onset Abdominal pain Acute Common bile duct dilation Acute Transaminitis Acute Adynamic ileus Acute Diabetes Acute Headache Acute
--- NOTE | 2017-10-22 17:48 | SOAPPROG ---
SOAP Progress Note Assessment/Plan: Assessment/Plan: 72 Y F known to us from colostomy takedown, VH repair, melanoma excision, and recent SBO resolved c conservative management. Admitted with upper abdominal pain, elevated LFTs. s/p open cholecystectomy. Eating well. Pain controlled. No N/V. Dispo: SNF soon. Is starting to want to go home instead. S: no complaints aside from wanting to go home. says she can get oob by herself now. O: nad, mmm, no jaundice, no wob, abd soft, appropriately ttp, subcostal inc cdi c charito. 10/22/17 17:47 Objective: Vital Signs Temp Pulse Resp BP Pulse Ox 36.5 C 98 14 100/61 94 10/22/17 17:04 10/22/17 16:00 10/22/17 16:00 10/22/17 16:00 10/22/17 16:00 Laboratory Results 10/21/17 04:20 10/21/17 04:20 10/21/17 10/22/17 10/23/17 05:59 05:59 05:59 Intake Total 650 400 120 Output Total 1325 500 800 Balance -675 -100 -680 PT 12.8 SEC (12.0-15.0) 10/16/17 06:20 INR 0.94 (0.83-1.16) 10/16/17 06:20 ICD10 Worksheet Patient Problems: Problems Problem Status Onset Abdominal pain Acute Common bile duct dilation Acute Transaminitis Acute Adynamic ileus Acute Diabetes Acute Headache Acute
[2017-10-22] MEDS: traMADol 50 MG TAB PO PRN (22:35)
[2017-10-22] MEDS: MIRTAZAPINE 15 MG TAB PO SCH (22:35)
[2017-10-22] MEDS: GABAPENTIN 300 MG CAP PO SCH (22:35)
[2017-10-22] MEDS: INSULIN GLARGINE 100 UNITS/ML SYRINGE SC SCH (23:10)
[2017-10-23] MEDS: OXYCODONE/APAP 5/325 TAB PO PRN ×2 (08:56→17:08)
[2017-10-23] MEDS: CALCIUM CARBONATE 500 MG TAB PO SCH (08:57)
[2017-10-23] MEDS: ASPIRIN EC 81 MG TAB PO SCH (08:58)
[2017-10-23] MEDS: ENOXAPARIN 40 MG/0.4 ML SYR SC SCH (08:58)
[2017-10-23] MEDS: ATORVASTATIN CALCIUM 40 MG TAB PO SCH (08:58)
[2017-10-23] MEDS: INSULIN LISPRO 100 UNIT/ML SC SCH ×3 (09:26→17:42)
--- NOTE | 2017-10-23 10:14 | SOAPPROG ---
SOAP Progress Note Assessment/Plan: Assessment/Plan: 72 Y F known to us from colostomy takedown, VH repair, melanoma excision, and recent SBO resolved c conservative management. Admitted with upper abdominal pain, elevated LFTs. s/p open cholecystectomy. No change overnight. Seen with Dr. Gordon. Eating well. Pain controlled. No N/V. Dispo: SNF soon. Is starting to want to go home instead. Added info to d/c plan tab. S: no complaints. Cheerful this am. O: nad, mmm, no jaundice, no wob, abd soft, appropriately ttp, subcostal inc cdi c charito. 10/23/17 10:13 Objective: Vital Signs Temp Pulse Resp BP Pulse Ox 36.4 C 88 16 101/62 93 10/23/17 08:25 10/23/17 08:25 10/23/17 08:25 10/23/17 08:25 10/23/17 08:25 Laboratory Results 10/21/17 04:20 10/21/17 04:20 10/22/17 10/23/17 10/24/17 05:59 05:59 05:59 Intake Total 400 320 Output Total 500 1400 120 Balance -100 -1080 -120 PT 12.8 SEC (12.0-15.0) 10/16/17 06:20 INR 0.94 (0.83-1.16) 10/16/17 06:20 ICD10 Worksheet Patient Problems: Problems Problem Status Onset Abdominal pain Acute Common bile duct dilation Acute Transaminitis Acute Adynamic ileus Acute Diabetes Acute Headache Acute
--- NOTE | 2017-10-23 16:49 | HOSPPROG ---
Hospitalist Progress Note Assessment/Plan: 72-year-old with multiple medical issues admitted with acute onset of abdominal pain c/w cholecystitis S/P open cholecystectomy in setting of choledocholithiasis, POD #7. Doing well. cont post-op care per surgery hypotension: resolved with NS bolus, anti-hypertensives held. can probably d/c off these with close f/u to resume if indicated. urinary retention: likely 2/2 pain meds, resolved diabetes: basal / bolus insulin. MTF held. resume at d/c. hypertension: meds held as above, resume when indicated Overweight w/ BMI 44.3, impacting care & recovery peripheral neuropathy chronic pain on tramadol daily proph: lmwh dispo: cont inpt, likely to be accepted to [facility] rehab tomorrow, hopefully dc in am. Discussed with CM, who has been working diligently on placement. Subjective: Pt feels ok. Pain controlled. She is ambulating, eating, voiding. No fevers. Objective: Vital Signs Temp Pulse Resp BP Pulse Ox 36.9 C 90 16 99/55 L 92 10/23/17 15:18 10/23/17 15:18 10/23/17 15:18 10/23/17 15:18 10/23/17 15:18 Laboratory Results 10/21/17 04:20 10/21/17 04:20 10/22/17 10/23/17 10/24/17 05:59 05:59 05:59 Intake Total 400 320 Output Total 500 1400 120 Balance -100 -1080 -120 PT 12.8 SEC (12.0-15.0) 10/16/17 06:20 INR 0.94 (0.83-1.16) 10/16/17 06:20 - Physical Exam Constitutional: no apparent distress Eyes: PERRL Ears, Nose, Mouth, Throat: moist mucous membranes Cardiovascular: regular rate and rhythym Respiratory: no respiratory distress, clear to auscultation Gastrointestinal: normoactive bowel sounds, soft, non-tender abdomen Skin: warm Musculoskeletal: generalized weakness Neurologic: AAOx3 Psychiatric: interacting appropriately ICD10 Worksheet Patient Problems: Problems Problem Status Onset Abdominal pain Acute Common bile duct dilation Acute Transaminitis Acute Adynamic ileus Acute Diabetes Acute Headache Acute
--- NOTE | 2017-10-23 17:26 | ASMTCMCOM ---
CM Note CM Note Notes: Spoke with patient today and informed her that [facility] where her lives in LTC cannot accept because they have had to close admissions due to Norovirus. We discussed posibilitiy of [facility] or [facility] rehab and patient is willing to go to either place. Spoke with hCidi at [facility] who wants to be informed prior to patient returning to [facility] so that she can come and do an assessment of patient being able to return. Case management will continue to follow. Date Signed: 10/23/2017 05:26 PM Electronically Signed By:MEIR Krause
[2017-10-23] MEDS: MIRTAZAPINE 15 MG TAB PO SCH (20:15)
[2017-10-23] MEDS: GABAPENTIN 300 MG CAP PO SCH (20:15)
[2017-10-23] MEDS: traMADol 50 MG TAB PO PRN (20:20)
[2017-10-23] MEDS: INSULIN GLARGINE 100 UNITS/ML SYRINGE SC SCH (23:06)
[2017-10-24] MEDS: OXYCODONE/APAP 5/325 TAB PO PRN ×2 (05:18→21:17)
[2017-10-24] MEDS: traMADol 50 MG TAB PO PRN (08:03)
[2017-10-24] MEDS: ENOXAPARIN 40 MG/0.4 ML SYR SC SCH (09:10)
[2017-10-24] MEDS: ASPIRIN EC 81 MG TAB PO SCH (09:12)
[2017-10-24] MEDS: CALCIUM CARBONATE 500 MG TAB PO SCH (09:12)
[2017-10-24] MEDS: ATORVASTATIN CALCIUM 40 MG TAB PO SCH (09:12)
[2017-10-24] MEDS: INSULIN LISPRO 100 UNIT/ML SC SCH ×3 (09:13→18:16)
[2017-10-24 09:50] LABS: % IMMATURE GRANULYOCYTES 0.6 % (0.0-1.1); ABSOLUTE IMMATURE GRANULOCYTES 0.04 10^3/uL (0.00-0.10); ADD DIFF? NO; ADD MORPH? NO; ADD SCAN? NO; ATYPICAL LYMPHOCYTE FLAG 30 (0-99); FRAGMENT RBC FLAG 0 (0-99); HEMOGLOBIN 9.2 g/dL (12.6-16.3); LEFT SHIFT FLG 0 (0-99); LIPEMIA HEMOLYSIS FLAG 80 (0-99); MEAN CELL HEMOGLOBIN 27.9 pg (27.9-34.1); MEAN CELL HEMOGLOBIN CONCENTR. 31.7 g/dL (32.4-36.7); MEAN CELL VOLUME 87.9 fL (81.5-99.8); MEAN PLATELET VOLUME 9.6 fL (8.7-11.7); PLATELET CLUMPS FLAG 0 (0-99); PLATELET COUNT 395 10^3/uL (150-400); RED CELL DISTRIBUTION WIDTH 13.8 % (11.5-15.2)
[2017-10-24 10:17] LABS: ALANINE AMINOTRANSFERASE 59 IU/L (9-52); ALBUMIN 3.4 g/dL (3.5-5.0); ALKALINE PHOSPHATASE 130 IU/L (38-126); ANION GAP 9 mEq/L (8-16); ASPARTATE AMINOTRANSFERASE 29 IU/L (14-46); BILIRUBIN,TOTAL 0.4 mg/dL (0.1-1.4); CALCIUM 9.6 mg/dL (8.5-10.4); CARBON DIOXIDE 33 mEq/l (22-31); CHLORIDE 98 mEq/L (97-110); CREATININE 0.8 mg/dL (0.6-1.0); GLOMERULAR FILTRATION RATE > 60; GLUCOSE 111 mg/dL (70-100); POTASSIUM 4.9 mEq/L (3.5-5.2); SODIUM 140 mEq/L (134-144); TOTAL PROTEIN 6.2 g/dL (6.3-8.2)
--- NOTE | 2017-10-24 15:35 | PDIAF ---
- Diagnosis Diagnosis: Choledocholelithiasis w/ cholecystitis Code Status: Full Code - Medication Management Discharge Medications: Medications to Continue on Transfer Aspirin EC [Aspirin EC 81 mg (*)] 81 mg PO DAILY 03/22/16 [Last Taken 10/15/17] Atorvastatin Calcium [Lipitor 40 mg (*)] 40 mg PO DAILY 03/22/16 [Last Taken 02/26] Cholecalciferol Vit D3 [Vitamin D3 2000 units tab (OTC)] 2,000 units PO DAILY [Last Taken 10/15/17] Fluticasone Nasal [Flonase Nasal [place]] 1 sprays NASAL DAILY PRN 03/22/16 [Last Taken Unknown] Insulin Detemir [Levemir] 10 unit SQ HS 03/22/16 [Last Taken 10/14/17] Meclizine HCl [Meclizine HCl 25 mg (RX,OTC)] 25 mg PO DAILY PRN 03/22/16 [Last Taken 08/23/17] Loratadine 10 mg PO DAILY PRN 08/24/17 [Last Taken Unknown] Meloxicam 15 mg PO HS 08/24/17 [Last Taken 10/14/17] Vitamin B Complex [B Complex] 1 each PO DAILY 08/24/17 [Last Taken 10/15/17] metFORMIN HCL [Glucophage 500 mg (*)] 500 mg PO BIDMEAL 08/24/17 [Last Taken 02/26 09:00] Calcium Carbonate [Oyster Shell Calcium 500 mg (*)] 500 mg PO DAILY 10/16/17 [ Last Taken 10/15/17] Gabapentin [Neurontin 300 MG (*)] 300 mg PO HS 10/16/17 [Last Taken 10/14/17] Mirtazapine [Remeron] 15 mg PO HS 10/16/17 [Last Taken 10/14/17] Ondansetron Odt [Zofran Odt 4 mg (*)] 4 mg PO Q4HRS PRN tab 10/24/17 [Last Taken Unknown] oxyCODONE/APAP 5/325 [Percocet 5/325 (*)] 1 tab PO Q4 PRN tab 10/24/17 [Last Taken Unknown] Care Home Antibiotics: NA Discharge Medications: Refer to the Discharge Home Medication list for PRN reason. PICC Care - Routine: N/A - Orders Services needed: Registered Nurse, Certified Machine Shop Helper, Physical Therapy, Occupational Therapy Isolation Type: None Oxygen: 2LPM NC Diet Recommendation: ADA 2000 consistent carb Diet Texture: Regular Texture Diet Weigh Patient: weekly Becerril: Not applicable Wound Care Instructions: Ok to shower. Avoid baths/pools. Date to Remove Sutures/Sadiq: 10/30/17 (at Dr. Gordon' office) Activity/Weight Bearing Restrictions: No lifting over 15 lbs. - Follow Up Care Current Providers and Referrals: Evert Gordon MD [Medical Doctor] - follow up in 1 week (for post op follow up and staple removal) Divine Barillas MD [Primary Care Provider] - 1-2 days without fail
--- NOTE | 2017-10-24 15:43 | PDDCSUM ---
Discharge Summary Discharge Summary: DISCHARGE SUMMARY FOLLOW-UP ITEMS: Staple removal as outpatient DATE OF ADMISSION: 10/15/2017 DATE OF DISCHARGE: 10/24/2017 DISCHARGE DIAGNOSES: 1. Acute cholecystitis 2. Choledocholelithiasis 3. Acute hypotension 4. Acute urinary tension 5. Diabetes mellitus type 2 6. Overweight with BMI of 31.1 7. Chronic peripheral neuropathy 8. Chronic hypertension 9. Acute atelectasis 10. Acute blood loss anemia CONSULTATIONS: General surgery PROCEDURES / IMAGIN10/17/[address] Gordon, laparoscopic CHIEF COMPLAINT: Acute abdominal pain SUBJECTIVE: Patient is feeling well at time discharge, she is moving her bowels, pain is well managed PHYSICAL EXAM ON DISCHARGE: Systolic blood pressure is 100, heart rate 80, afebrile overnight, satting on 1.5 L nasal cannula, alert awake oriented x3, no apparent distress, abdomen is soft, minimally tender to palpation, small incisions sites without any surrounding erythema, bowel sounds are present, lungs with faint inspiratory crackles which mostly clear with cough LABS ON DISCHARGE: Fasting blood glucose 130, hemoglobin 9.2, white blood cell count 6400, creatinine 0.8, ALT 60, alk-phos 130 HOSPITAL COURSE BY PROBLEM: The patient presented with acute abdominal pain secondary to choledocholithiasis resulting in acute cholecystitis, requiring laparoscopic cholecystectomy by Dr. Evert Gordon on 10/17/2017. The procedure itself was uncomplicated, but the patient did experience some acute intermittent hypotension during her hospitalization, extending her hospital length of stay, as well as acute atelectasis requiring ongoing supplemental oxygen and incentive spirometer, acute urinary retention secondary to pain medications, and anticipated acute blood loss anemia evidenced by a decline in her hemoglobin level from 13 to around 9, but not requiring blood transfusion. The patient is overweight with BMI of 31, which increase her risk of worsening morbidity and/or mortality, as well as her overall physical conditioning. She will require longterm facility placement to increase her physical activity, prior to returning home for the holidays. Her antihypertensive medications will also be held until she has resumed her normal level of physical activity, then they can be reassessed as an outpatient. Her pain is currently well managed with as needed Percocet, scheduled nonsteroidal anti- inflammatory, as needed Tylenol. She reports that her home dosage of tramadol was ineffective for pain relief, and has been discontinue. DISCHARGE MEDICATIONS: Please see official discharge medication reconciliation sheet in chart , continue home medications with the exception of discontinuation of propranolol, discontinuation of losartan, discontinuation of tramadol, initiation of as needed Percocet. DISCHARGE INSTRUCTIONS: Please follow up with Dr. Gordon next week for staple removal, follow-up PCP thereafter. TIME SPENT: Greater than 30 minutes were spent on direct patient care, as well as discharge planning and preparation.
--- NOTE | 2017-10-24 15:44 | PDIAF ---
- Diagnosis Diagnosis: Choledocholelithiasis w/ cholecystitis Code Status: Full Code - Medication Management Discharge Medications: Medications to Continue on Transfer Aspirin EC [Aspirin EC 81 mg (*)] 81 mg PO DAILY 03/22/16 [Last Taken 10/15/17] Atorvastatin Calcium [Lipitor 40 mg (*)] 40 mg PO DAILY 03/22/16 [Last Taken 02/26] Cholecalciferol Vit D3 [Vitamin D3 2000 units tab (OTC)] 2,000 units PO DAILY [Last Taken 10/15/17] Fluticasone Nasal [Flonase Nasal [place]] 1 sprays NASAL DAILY PRN 03/22/16 [Last Taken Unknown] Insulin Detemir [Levemir] 10 unit SQ HS 03/22/16 [Last Taken 10/14/17] Meclizine HCl [Meclizine HCl 25 mg (RX,OTC)] 25 mg PO DAILY PRN 03/22/16 [Last Taken 08/23/17] Loratadine 10 mg PO DAILY PRN 08/24/17 [Last Taken Unknown] Meloxicam 15 mg PO HS 08/24/17 [Last Taken 10/14/17] Vitamin B Complex [B Complex] 1 each PO DAILY 08/24/17 [Last Taken 10/15/17] metFORMIN HCL [Glucophage 500 mg (*)] 500 mg PO BIDMEAL 08/24/17 [Last Taken 02/26 09:00] Calcium Carbonate [Oyster Shell Calcium 500 mg (*)] 500 mg PO DAILY 10/16/17 [ Last Taken 10/15/17] Gabapentin [Neurontin 300 MG (*)] 300 mg PO HS 10/16/17 [Last Taken 10/14/17] Mirtazapine [Remeron] 15 mg PO HS 10/16/17 [Last Taken 10/14/17] Ondansetron Odt [Zofran Odt 4 mg (*)] 4 mg PO Q4HRS PRN tab 10/24/17 [Last Taken Unknown] oxyCODONE/APAP 5/325 [Percocet 5/325 (*)] 1 tab PO Q4 PRN tab 10/24/17 [Last Taken Unknown] Long-Term Antibiotics: NA Discharge Medications: Refer to the Discharge Home Medication list for PRN reason. PICC Care - Routine: N/A - Orders Services needed: Registered Nurse, Certified District Sales Coordinator, Physical Therapy, Occupational Therapy Isolation Type: None Oxygen: 2LPM NC Diet Recommendation: ADA 2000 consistent carb Diet Texture: Regular Texture Diet Weigh Patient: weekly Becerril: Not applicable Wound Care Instructions: Ok to shower. Avoid baths/pools. Date to Remove Sutures/Sadiq: 10/30/17 (at Dr. Gordon' office) Activity/Weight Bearing Restrictions: No lifting over 15 lbs. - Labs/Radiology CBC w/diff Date: 10/29/17 CMP Date: 10/29/17 Call or Fax Lab and Imaging Results to: Dr. Gordon and Dr. Barillas - Follow Up Care Current Providers and Referrals: Evert Gordon MD [Medical Doctor] - follow up in 1 week (for post op follow up and staple removal) Divine Barillas MD [Primary Care Provider] - 3 days of d/c SNF/Rehab
[2017-10-24] MEDS: GABAPENTIN 300 MG CAP PO SCH (21:08)
[2017-10-24] MEDS: MIRTAZAPINE 15 MG TAB PO SCH (21:08)
[2017-10-24] MEDS: INSULIN GLARGINE 100 UNITS/ML SYRINGE SC SCH (21:08)
[2017-10-25 09:23] VITALS: RESP 16
[2017-10-25] MEDS: ASPIRIN EC 81 MG TAB PO SCH (09:25)
[2017-10-25] MEDS: ENOXAPARIN 40 MG/0.4 ML SYR SC SCH (09:25)
[2017-10-25] MEDS: CALCIUM CARBONATE 500 MG TAB PO SCH (09:25)
[2017-10-25] MEDS: ATORVASTATIN CALCIUM 40 MG TAB PO SCH (09:25)
[2017-10-25] MEDS: INSULIN LISPRO 100 UNIT/ML SC SCH ×2 (09:27→12:51)
[2017-10-25] MEDS: traMADol 50 MG TAB PO PRN (09:28)
--- NOTE | 2017-10-25 11:16 | ASMTCMCOM ---
CM Note CM Note Notes: Pt ready for DC to [facility] today. Final orders, meds and facility report faxed. [facility] for 11:30. Date Signed: 10/25/2017 11:16 AM Electronically Signed By:Jennifer Suazo LCSW
--- NOTE | 2017-10-25 12:21 | PDDCSUM ---
Discharge Summary Discharge Summary: DISCHARGE SUMMARY FOLLOW-UP ITEMS: Staple removal as outpatient DATE OF ADMISSION: 10/15/2017 DATE OF DISCHARGE: 10/25/2017 DISCHARGE DIAGNOSES: 1. Acute cholecystitis 2. Choledocholelithiasis 3. Acute hypotension 4. Acute urinary tension 5. Diabetes mellitus type 2 6. Overweight with BMI of 31.1 7. Chronic peripheral neuropathy 8. Chronic hypertension 9. Acute atelectasis 10. Acute blood loss anemia CONSULTATIONS: General surgery PROCEDURES / IMAGIN10/17/[address] Gordon, laparoscopic CHIEF COMPLAINT: Acute abdominal pain SUBJECTIVE: Patient is feeling well at time discharge, she is moving her bowels, pain is well managed PHYSICAL EXAM ON DISCHARGE: Systolic blood pressure is 100-110, heart rate 87, afebrile overnight, satting on 2 L nasal cannula, alert awake oriented x3, no apparent distress, abdomen is soft, minimally tender to palpation, small incisions sites without any surrounding erythema, bowel sounds are present, lungs with faint inspiratory crackles which mostly clear with cough LABS ON DISCHARGE: Fasting blood glucose 130, hemoglobin 9.2, white blood cell count 6400, creatinine 0.8, ALT 60, alk-phos 130 HOSPITAL COURSE BY PROBLEM: The patient presented with acute abdominal pain secondary to choledocholithiasis resulting in acute cholecystitis, requiring laparoscopic cholecystectomy by Dr. Evert Gordon on 10/17/2017. The procedure itself was uncomplicated, but the patient did experience some acute intermittent hypotension during her hospitalization, extending her hospital length of stay, as well as acute atelectasis requiring ongoing supplemental oxygen and incentive spirometer, acute urinary retention secondary to pain medications, and anticipated acute blood loss anemia evidenced by a decline in her hemoglobin level from 13 to around 9, but not requiring blood transfusion. The patient is overweight with BMI of 31, which increase her risk of worsening morbidity and/or mortality, as well as her overall physical conditioning. She will require retirement facility placement to increase her physical activity, prior to returning home for the holidays. Her antihypertensive medications will also be held until she has resumed her normal level of physical activity, then they can be reassessed as an outpatient. Her pain is currently well managed with as needed Percocet, scheduled nonsteroidal anti- inflammatory, as needed Tylenol. She reports that her home dosage of tramadol was ineffective for pain relief, and has been discontinued. DISCHARGE MEDICATIONS: Please see official discharge medication reconciliation sheet in chart , continue home medications with the exception of discontinuation of propranolol, discontinuation of losartan, discontinuation of tramadol, initiation of as needed Percocet. DISCHARGE INSTRUCTIONS: Please follow up with Dr. Gordon next week for staple removal, follow-up PCP thereafter. TIME SPENT: Greater than 30 minutes were spent on direct patient care, as well as discharge planning and preparation.
[2017-10-25 12:38] VITALS: BP 104/57; PULSE 84; TEMP 98.5; O2SAT 97
--- NOTE | 2017-10-25 15:50 | ASDISCHSUM ---
Discharge Information Plan Status:SNF Medically Cleared to Leave: Discharge Date:10/25/2017 02:32 PM D/C Disposition:[facility]ison Facility ADT D/C Disposition:Prison Facility Projected Discharge Date:10/24/2017 11:00 AM Transportation at D/C: Discharge Delay Reason: Follow-Up Date:10/24/2017 11:00 AM Discharge Slot: Final Diagnosis: Placement Information Referral Type:*Long-Term/SNF Referral ID:[id number] Provider Name: Address 1: Phone Number: Address 2: Fax Number: City: Selection Factors: State: Referral Type:*Long-Term/SNF Referral ID:[id number] Provider Name:[facility] Address 1:[address] [place] [address] Address 2: City:[place] Selection Factors: State:[place] Patient Contact Information Contact Name:ANGEL LUIS Relationship:Cousin Address: Work Phone: City: Alternate Phone: State/Zip Code: Email: Financial Information Financial Class:Medicare Advantage Plans Primary Plan Desc:[employer] MEDICARE Primary Plan Number:[id number] Secondary Plan Desc:MED[place] [place] Secondary Plan Number:[id number] Assessment Information [facility] Progress Note CM Note CM Note Notes: 10/16/2017 Case Management Note Met w/pt. Pt lives at [facility] in the [place]. She takes 3 meals a day there and has an RN adminstering her meds. There are PT services available but pt does not utilize them at this time. Pt no longer drives and plans for her cousin Keara ([phone]) to transport back to [facility] at d/c. There are no PT or OT evals at this time. Case Management d/c poc: home independent when medically stable. Case Management available if needs change. Date Signed: 10/16/2017 03:19 PM Electronically Signed By:Reina Morales RN [facility] CM Progress Note CM Note CM Note Notes: Pt recovering from open rashid. PT recommending HC vs SNF, OT recs SNF. Attempted to discuss DC options with pt but per PCS she has been sleeping all day and cannot stay awake after being woken up. Lalita from [facility] called for an update. Pt will need to be evaluated by them before returning if she does not go to SNF first. PH # is [phone]. DC not likely for a few more days. C/M to follow. Date Signed: 10/18/2017 12:43 PM Electronically Signed By:Jennifer Suazo LCSW [facility] CM Progress Note CM Note CM Note Notes: Pt more alert today and able to have conversation about dc poc. Discussed option of SNF rehab vs HHC. Pt does feel at this time that she would benefit from rehab. She would like to go to [facility] b/c her is resident there. Discussed also with her cousin Briseida, , who alex gave me permission to discuss with. Briseida also felt [facility] would be best option w/ being there. Referral sent to [facility] and spoke w/Yessenia. They are not contacted w/pt's insurance, [employer], but Yessenia said they could possibly do a one time contract with them. They will submit for this and if this is not able to happen pt wo agreeable to [facility] or [facility]- would want to clarify w/pt and her cousin what their 1st chice of these two are if pt not able to go to [facility]. If pt is not able to go to [facility] Yessenia did say that they would try to take her Nehemias to see her at SNF. Will most likely not get auth from insurance co until Sunday at this point. CM will follow. Date Signed: 10/19/2017 04:11 PM Electronically Signed By:Katrina Peña RN [facility] CM Progress Note CM Note CM Note Notes: Spoke with patient today and informed her that [facility] where her lives in LTC cannot accept because they have had to close admissions due to Norovirus. We discussed posibilitiy of [facility] or [facility] rehab and patient is willing to go to either place. Spoke with Lalita at [facility] who wants to be informed prior to patient returning to [facility] so that she can come and do an assessment of patient being able to return. Case management will continue to follow. Date Signed: 10/23/2017 05:26 PM Electronically Signed By:MEIR Krause [facility] CM Progress Note CM Note CM Note Notes: Pt ready for DC to [facility] today. Final orders, meds and facility report faxed. Pickup by [facility] set for 11:30. Date Signed: 10/25/2017 11:16 AM Electronically Signed By:Jennifer Suazo LCSW Intervention Information Intervention Type:*IM-Signed Date of Service:10/24/2017 04:56 PM Patient Type:Inpatient Staff Member:Marian Cm Hours: Discipline: Severity: Comment:
== END 2017-10-25 14:32 | DRG 418 ==
LOC: EDUNIT# → F2W 10-16 00:51 → OBSVTOIN 10-16 11:49 → F3E 10-16 18:18 → F1N 10-16 21:20
PROVIDERS: ADMIT Family Medicine; ATTEND Family Medicine
DX: K80.42 Calculus of bile duct with acute cholecystitis without obstruction (principal); D62 Acute posthemorrhagic anemia; J98.11 Atelectasis; I95.89 Other hypotension; R33.9 Retention of urine, unspecified; E11.9 Type 2 diabetes mellitus without complications; E66.3 Overweight; G62.9 Polyneuropathy, unspecified; I10 Essential (primary) hypertension; Z68.31 Body mass index [BMI] 31.0-31.9, adult; T40.4X5A Adverse effect of other synthetic narcotics, initial encounter
CPT/HCPCS: 96374; 97116-GP; 97161-GP; 97165-GO; 97530-GO; 97530-GP; 97535-GO; A9585; G8978-GP-CK; G8979-GP-CI; G8980-GP-CI; J1335; J1650; J1815; J2060; J2370; J2405; J2704; J3010; P9041; Q9961; Q9967

== ENCOUNTER → 2017-11-09 | Outpatient (CLI) | payer OTHER, MEDICAID | LOC: FIMAGING 12:24 | PROVIDERS: ATTEND Internal Medicine | DX: M79.89 Other specified soft tissue disorders (principal); Z90.49 Acquired absence of other specified parts of digestive tract; N94.89 Other specified conditions associated with female genital organs and menstrual cycle ==

== ENCOUNTER → 2018-01-22 | Outpatient (CLI) | payer OTHER, MEDICAID ==
[~2018-01-22] MED LIST: GADOBUTROL 10 ML VIAL IVP ONE
== END ==
LOC: FIMAGING 09:40
PROVIDERS: ATTEND Internal Medicine
DX: C70.0 Malignant neoplasm of cerebral meninges (principal); G31.9 Degenerative disease of nervous system, unspecified
CPT/HCPCS: 70553; A9585

== ENCOUNTER → 2018-01-29 | Outpatient (CLI) | payer OTHER, MEDICAID | LOC: FIMAGING 07:04 | DX: M54.5 Low back pain (principal); M51.36 Other intervertebral disc degeneration, lumbar region; M48.061 Spinal stenosis, lumbar region without neurogenic claudication; M51.26 Other intervertebral disc displacement, lumbar region; G89.4 Chronic pain syndrome ==

== ENCOUNTER 2018-09-11 23:32 | Emergency (ER) | payer OTHER, MEDICAID ==
[2018-09-11] MEDS ORDERED: NS 1,000 ML IV ONE (23:40)
--- NOTE | 2018-09-11 23:42 | EDPHY ---
H & P Source: Patient, EMS - Personal History Tetanus Vaccine Date: 04/28/13 - Medical/Surgical History Hx Asthma: No Hx Chronic Respiratory Disease: No Hx Diabetes: Yes Hx Cardiac Disease: No Hx Renal Disease: Yes Hx Cirrhosis: No Hx Alcoholism: No Hx HIV/AIDS: No Hx Splenectomy or Spleen Trauma: No Other PMH: hernia repair, SBO 2/2 adhesions 2012,post op bowel leak, ileostomy, ileostomy reversal 2013,JORDY, DM type 2,HTN - Social History Smoking Status: Never smoked Time Seen by Provider: 09/11/18 23:41 HPI/ROS: HPI CHIEF COMPLAINT: Right hand discomfort. HISTORY OF PRESENT ILLNESS: 73-year-old female, she arrives by ambulance from [facility] where she resides, she states that her left knee gave out and she lost her balance and went to catch herself with her right hand caught her right hand on the wall. She now has discomfort to the right lateral hand specifically over the 5th digit. She has obvious deformity be closed. Appears to be dislocated possibly fractured. Her main complaint right 5th digit pain. Past Medical History: Diabetes, hypertension Past Surgical History: no recent surgical history Social History: denies drugs alcohol tobacco Family History: Noncontributory ROS REVIEW OF SYSTEMS: 10 Systems were reviewed and negative with the exception of the elements mentioned in the history of present illness. Exam Constitutional nontoxic, triage nursing summary reviewed, vital signs reviewed , awake/alert. Eyes normal conjunctivae and sclera, EOMI, PERRLA. HENT normal inspection, atraumatic, moist mucus membranes, no epistaxis, neck supple/ no meningismus, no raccoon eyes. Respiratory clear to auscultation bilaterally, normal breath sounds, no respiratory distress, no wheezing. Cardiovascular rate normal, regular rhythm, no murmur, no edema, distal pulses normal. Gastrointestinal soft, non-tender, no rebound, no guarding, normal bowel sounds, no distension, no pulsatile mass. Genitourinary no CVA tenderness. Musculoskeletal right hand: Obvious deformity and pain and swelling noted the 5th digit. Closed. Otherwise neurovascular intact. no midline vertebral tenderness, full range of motion, no calf swelling, no tenderness of extremities , no meningismus, good pulses, neurovascularly intact. Skin pink, warm, & dry, no rash, skin atraumatic. Neurologic awake, alert and oriented x 3, AAOx3, moves all 4 extremities equally, motor intact, sensory intact, CN II-XII intact, normal cerebellar, normal vision, normal speech. Psychiatric normal mood/affect. Heme/Lymph/Immune no lymphadenopathy. Differential Diagnosis: Includes but is not limited to in a particular order dehydration, electrolyte disturbance, mechanical trip and fall, finger fracture , finger dislocation, fracture dislocation, and contusion cardiac arrhythmia, ACS Medical Decision Making: Plan for this patient IV establishment blood draw, gentle IV fluids, x-ray right hand, most likely will have a 5th digit dislocation/fracture this will need to be reduced with a digital block. Re-evaluation: EKG interpretation by me on record in [employer] system. Impression time of EKG 2355, sinus rhythm rate of 77, no signs of acute ischemia. When compared to the patient's old EKG 03/04/2016 is unchanged morphology. X-ray of the hand reviewed this shows a dislocation of the 5th digit. Post reduction x-ray performed. This shows good alignment. She has been splinted appropriately. She is neurovascularly intact post reduction. She has a small avulsion fracture. Patient need to follow up Hand surgery. Patient's post reduction x-ray is appropriate. She has been a splinted appropriately. I explained her she has a small avulsion/chip fracture. Recommend follow-up with Hand surgery. This been discussed with her and placed on her discharge paperwork. Patient's EKG is stable. Patient's troponin is 0.00. Patient's electrolytes appropriate. White blood cell count appropriate She feels fine and would like to go home at re-evaluation 1:31 a.m.. Denies any chest pain shortness of breath denies dizziness. She ambulated well throughout the emergency room. Return precautions discussed with her. (Micah Wolfe) Constitutional: Initial Vital Signs Temperature (C) 36.4 C 09/11/18 23:42 Heart Rate 84 09/11/18 23:42 Respiratory Rate 18 09/11/18 23:42 Blood Pressure 147/112 H 09/11/18 23:42 O2 Sat (%) 95 09/11/18 23:42 O2 Delivery Mode Room Air Allergies/Adverse Reactions: diphenhydramine Allergy (Unknown, Unverified 09/11/18 23:41) Home Medications: Medication Instructions Recorded Aspirin EC [Aspirin EC 81 mg (*)] 81 mg PO DAILY 03/22/16 Atorvastatin Calcium [Lipitor 40 40 mg PO DAILY 03/22/16 mg (*)] Cholecalciferol Vit D3 [Vitamin D3 2,000 units PO DAILY 03/22/16 2000 units tab (OTC)] Fluticasone Nasal [Flonase Nasal 1 sprays NASAL DAILY PRN 03/22/16 [place]] Insulin Detemir [Levemir] 10 unit SQ HS 03/22/16 Meclizine HCl [Meclizine HCl 25 mg 25 mg PO DAILY PRN 03/22/16 (RX,OTC)] Loratadine 10 mg PO DAILY PRN 08/24/17 Meloxicam 15 mg PO HS 08/24/17 Vitamin B Complex [B Complex] 1 each PO DAILY 08/24/17 metFORMIN HCL [Glucophage 500 mg 500 mg PO BIDMEAL 08/24/17 (*)] Calcium Carbonate [Oyster Shell 500 mg PO DAILY 10/16/17 Calcium 500 mg (*)] Gabapentin [Neurontin 300 MG (*)] 300 mg PO HS 10/16/17 Mirtazapine [Remeron] 15 mg PO HS 10/16/17 Ondansetron Odt [Zofran Odt 4 mg 4 mg PO Q4HRS PRN tab 10/24/17 (*)] oxyCODONE/APAP 5/325 [Percocet 1 tab PO Q4 PRN tab 10/24/17 5/325 (*)] Medical Decision Making Procedures: Procedure: Dislocation reduction. The dislocation of the right PIP joint was reduced using counter traction technique without complications. Post reduction the patient's neurovascular exam is normal. Post reduction x-ray demonstrates reduction of the joint to the anatomic position. The procedure was performed by myself. Procedure: Splint placement. A right little finger aluminum finger splint was applied by the Emergency Room survey and mapping technician. After application of the splint I returned and re-examined the patient. The splint was adequately immobilizing the joint and distal to the splint the patient's circulation and sensation was intact. (Nohemy Campos) - Data Points Laboratory Results: Laboratory Results 09/12/18 00:05 09/12/18 00:05 09/12/18 09/12/18 09/12/18 00:19 00:05 00:05 WBC 7.14 10^3/uL 10^3/uL (3.80-9.50) RBC 4.65 10^6/uL 10^6/uL (4.18-5.33) Hgb 13.3 g/dL g/dL (12.6-16.3) Hct 40.6 % % (38.0-47.0) MCV 87.3 fL fL (81.5-99.8) MCH 28.6 pg pg (27.9-34.1) MCHC 32.8 g/dL g/dL (32.4-36.7) RDW 14.7 % % (11.5-15.2) Plt Count 240 10^3/uL 10^3/uL (150-400) MPV 10.8 fL fL (8.7-11.7) Neut % (Auto) 54.6 % % (39.3-74.2) Lymph % (Auto) 34.3 % % (15.0-45.0) [place] % (Auto) 8.1 % % (4.5-13.0) Eos % (Auto) 1.7 % % (0.6-7.6) Baso % (Auto) 1.0 % % (0.3-1.7) Nucleat RBC Rel Count 0.0 % % (0.0-0.2) Absolute Neuts (auto) 3.90 10^3/uL 10^3/uL (1.70-6.50) Absolute Lymphs (auto) 2.45 10^3/uL 10^3/uL (1.00-3.00) Absolute Monos (auto) 0.58 10^3/uL 10^3/uL (0.30-0.80) Absolute Eos (auto) 0.12 10^3/uL 10^3/uL (0.03-0.40) Absolute Basos (auto) 0.07 10^3/uL 10^3/uL (0.02-0.10) Absolute Nucleated RBC 0.00 10^3/uL 10^3/uL (0-0.01) Immature Gran % 0.3 % % (0.0-1.1) Immature Gran # 0.02 10^3/uL 10^3/uL (0.00-0.10) Sodium 141 mEq/L mEq/L (135-145) Potassium 4.3 mEq/L mEq/L (3.3-5.0) Chloride 110 mEq/L mEq/L (97-110) Carbon Dioxide 22 mEq/l mEq/l (22-31) Anion Gap 9 mEq/L mEq/L (6-14) BUN 21 mg/dL mg/dL (7-23) Creatinine 1.0 mg/dL mg/dL (0.6-1.0) Estimated GFR 54 Glucose 114 mg/dL H mg/dL (70-100) Calcium 9.4 mg/dL mg/dL (8.5-10.4) Magnesium 1.8 mg/dL mg/dL (1.6-2.3) POC Troponin I 0.00 ng/mL ng/mL (0.00-0.08) Medications Given: Discontinued Medications Sodium Chloride (Ns) 1,000 mls @ 0 mls/hr IV EDNOW ONE; Wide Open PRN Reason: Protocol Stop: 09/11/18 23:41 Last Admin: 09/12/18 00:03 Dose: 1,000 mls Point of Care Test Results: Chemistry 09/12/18 00:19 POC Troponin I 0.00 ng/mL ng/mL (0.00-0.08) Departure - Departure Disposition: Home, Routine, Self-Care Clinical Impression: Finger dislocation Qualifiers: Encounter type: initial encounter Qualified Code(s): S63.259A - Unspecified dislocation of unspecified finger, initial encounter Finger fracture Qualifiers: Encounter type: initial encounter Finger: little finger Fracture type: closed Phalanx: middle Fracture alignment: nondisplaced Instructions: Finger Dislocation (ED) Additional Instructions: 1. You need to follow up with Hand surgery 2. Please stay in her splint for comfort 3. You have a small fracture of her finger. 4. Take anti-inflammatory pain medicine like Tylenol and/or Motrin for pain control 5. Ice. 6. Return if worse. Referrals: Ida Thomas MD [Primary Care Provider] - As per Instructions Pat Bernardo MD [Medical Doctor] - As per Instructions
[2018-09-12 00:12] LABS: PLATELET COUNT 240 10^3/uL (150-400)
[2018-09-12 01:54] VITALS: BP 158/83
--- NOTE | 2018-09-12 06:06 | CPEKG ---
Test Reason : OPEN Blood Pressure : / mmHG Vent. Rate : 077 BPM Atrial Rate : 077 BPM P-R Int : 132 ms QRS Dur : 088 ms QT Int : 398 ms P-R-T Axes : 058 -02 076 degrees QTc Int : 451 ms Sinus rhythm Low voltage, precordial leads Consider anterior infarct Confirmed by Micah Wolfe ([id number]) on 09/12/2018 6:05:33 AM Referred By: Confirmed By:Micah Wolfe
== END 2018-09-12 03:01 | disposition home or self-care (01) ==
LOC: EDUNIT#
PROC: 0RSSXZZ Reposition Right Carpometacarpal Joint, External Approach (ICD-10-PCS; principal; 2018-09-11)
DX: S62.616A Displaced fracture of proximal phalanx of right little finger, initial encounter for closed fracture (principal); S63.256A Unspecified dislocation of right little finger, initial encounter; E11.9 Type 2 diabetes mellitus without complications; I10 Essential (primary) hypertension
CPT/HCPCS: 26670; 73130; 73140; 93005; 99285; L3925; 84484-PO

== ENCOUNTER 2018-09-12 22:24 | Emergency (ER) | payer OTHER, MEDICAID ==
[2018-09-12 22:32] VITALS: BP 134/100
--- NOTE | 2018-09-12 22:34 | EDPHY ---
H & P Stated Complaint: PAIN R PINKY/FELL YEST FX PINKY Time Seen by Provider: 09/12/18 22:29 HPI/ROS: CHIEF COMPLAINT: Right pinky pain HISTORY OF PRESENT ILLNESS: Patient is a 73-year-old female who was seen here yesterday for a right pinky dislocation/avulsion fracture. She had a digital block performed and had the dislocation reduced successfully. She was splinted. She states that today the digital block wore off and she began having pain. She tried taking Tylenol No. 3 without significant relief. This evening her skilled nursing called an ambulance to bring her to the emergency department for pain control. No significant swelling. No new trauma. Normal capillary refill. Severity: Severe Modifying factors: None REVIEW OF SYSTEMS: Constitutional: denies: chills, fever, recent illness, recent injury EENTM: denies: blurred vision, double vision, nose congestion Respiratory: denies: cough, shortness of breath Cardiac: denies: chest pain, irregular heart rate, lightheadedness, palpitations Gastrointestinal/Abdominal: denies: abdominal pain, diarrhea, nausea, vomiting, blood streaked stools Genitourinary: denies: dysuria, frequency, hematuria, pain Musculoskeletal: denies: joint pain, muscle pain Skin: denies: lesions, rash, jaundice, bruising Neurological: denies: headache, numbness, paresthesia, tingling, dizziness, weakness Hematologic/Lymphatic: denies: blood clots, easy bleeding, easy bruising Immunologic/allergic: denies: HIV/AIDS, transplant 10 systems reviewed and negative except as noted EXAM: GENERAL: Well-appearing, well-nourished and in no acute distress. HEAD: Atraumatic, normocephalic. EYES: Pupils equal round and reactive to light, extraocular movements intact, sclera anicteric, conjunctiva are normal. ENT: TMs normal, nares patent, oropharynx clear without exudates. Moist mucous membranes. NECK: Normal range of motion, supple without lymphadenopathy or JVD. LUNGS: Breath sounds clear to auscultation bilaterally and equal. No wheezes rales or rhonchi. HEART: Regular rate and rhythm without murmurs, rubs or gallops. ABDOMEN: Soft, nontender, normoactive bowel sounds. No guarding, no rebound. No masses appreciated. BACK: No CVA tenderness, no spinal tenderness, step-offs or deformities EXTREMITIES: Right little finger splinted. Minimal swelling. Minimal bruising. Normal capillary refill. Normal sensation. NEUROLOGICAL: Cranial nerves II through XII grossly intact. Normal speech, normal gait. 5/5 strength, normal movement in all extremities, normal sensation , normal reflexes PSYCH: Normal mood, normal affect. SKIN: Warm, dry, normal turgor, no visible rashes or lesions. Source: Patient Exam Limitations: No limitations - Personal History Tetanus Vaccine Date: 04/28/13 - Medical/Surgical History Hx Asthma: No Hx Chronic Respiratory Disease: No Hx Diabetes: Yes Hx Cardiac Disease: No Hx Renal Disease: Yes Hx Cirrhosis: No Hx Alcoholism: No Hx HIV/AIDS: No Hx Splenectomy or Spleen Trauma: No Other PMH: hernia repair, SBO 2/2 adhesions 2012,post op bowel leak, ileostomy, ileostomy reversal 2013,JORDY, DM type 2,HTN, ANXIETY, MIGRAINES, HYPERLIPIDEMIA, VERTIGO - Family History Significant Family History: No pertinent family hx - Social History Smoking Status: Never smoked Alcohol Use: Sober Drug Use: None Constitutional: Initial Vital Signs Temperature (C) 36.5 C 09/12/18 22:25 Heart Rate 86 09/12/18 22:25 Respiratory Rate 16 09/12/18 22:25 Blood Pressure 134/100 H 09/12/18 22:25 O2 Sat (%) 96 09/12/18 22:25 O2 Delivery Mode Room Air Allergies/Adverse Reactions: diphenhydramine Allergy (Unknown, Unverified 09/11/18 23:41) Home Medications: Medication Instructions Recorded Aspirin EC [Aspirin EC 81 mg (*)] 81 mg PO DAILY 03/22/16 Atorvastatin Calcium [Lipitor 40 40 mg PO DAILY 03/22/16 mg (*)] Cholecalciferol Vit D3 [Vitamin D3 2,000 units PO DAILY 03/22/16 2000 units tab (OTC)] Fluticasone Nasal [Flonase Nasal 1 sprays NASAL DAILY PRN 03/22/16 [place]] Insulin Detemir [Levemir] 10 unit SQ HS 03/22/16 Meclizine HCl [Meclizine HCl 25 mg 25 mg PO DAILY PRN 03/22/16 (RX,OTC)] Loratadine 10 mg PO DAILY PRN 08/24/17 Meloxicam 15 mg PO HS 08/24/17 Vitamin B Complex [B Complex] 1 each PO DAILY 08/24/17 metFORMIN HCL [Glucophage 500 mg 500 mg PO BIDMEAL 08/24/17 (*)] Calcium Carbonate [Oyster Shell 500 mg PO DAILY 10/16/17 Calcium 500 mg (*)] Gabapentin [Neurontin 300 MG (*)] 300 mg PO HS 10/16/17 Mirtazapine [Remeron] 15 mg PO HS 10/16/17 Ondansetron Odt [Zofran Odt 4 mg 4 mg PO Q4HRS PRN tab 10/24/17 (*)] oxyCODONE/APAP 5/325 [Percocet 1 tab PO Q4 PRN tab 10/24/17 5/325 (*)] Metformin HCl 09/12/18 morphINE IR [morphINE IR 15 mg (*)] 15 mg PO Q6-8PRN PRN #10 tab 09/12/18 Medical Decision Making ED Course/Re-evaluation: 10:30 p.m. I see a attempted to convince the patient to do another digital block. She was adamantly opposed to this. She felt like the pain was worse once the digital block wore off. She is requesting stronger pain medicine than the Tylenol 3. Will give her a dose of morphine here and morphine IR to take at home. This is less addictive than Percocet or Vicodin and less sedating. Patient is in agreement with this plan. We will send her back on the ambulance. Differential Diagnosis: Partial list of the Differential diagnosis considered include but were not limited to; fracture, pain control and although unlikely based on the history and physical exam, I also considered infection, re-injury. I discussed these differential diagnoses and the plan with the patient as well as the usual and expected course. The patient understands that the diagnosis is provisional and that in medicine we are not always correct and that further workup is often warranted. Usual and customary warnings were given. All of the patient's questions were answered. The patient was instructed to return to the emergency department should the symptoms at all worsen or return, otherwise to followup with the physician as we discussed. - Data Points Medications Given: Discontinued Medications Morphine Sulfate (Morphine Ir) 15 mg PO ONCE ONE Stop: 09/12/18 22:33 Last Admin: 09/12/18 22:42 Dose: Not Given Morphine Sulfate (Roxanol Oral Solution) 10 mg PO EDNOW ONE Stop: 09/12/18 22:41 Last Admin: 09/12/18 22:41 Dose: 10 mg Departure - Departure Disposition: Home, Routine, Self-Care Clinical Impression: Finger pain, right Condition: Fair Instructions: Finger Fracture (ED), Finger Sprain (ED) Referrals: Ida Thomas MD [Primary Care Provider] - As per Instructions Prescriptions: morphINE IR [morphINE IR 15 mg (*)] 15 mg PO Q6-8PRN PRN #10 tab PRN Reason: Pain, Severe
[2018-09-12] MEDS ORDERED: morphINE 10 MG/0.5 ML UDSYR ONE (22:35)
[2018-09-12] MEDS ORDERED: morphINE 10 MG/0.5 ML UDSYR PO ONE (22:40)
== END 2018-09-12 23:18 | disposition home or self-care (01) ==
LOC: EDUNIT#
PROC: 3E0T3BZ Introduction of Anesthetic Agent into Peripheral Nerves and Plexi, Percutaneous Approach (ICD-10-PCS; principal; 2018-09-12)
DX: M79.644 Pain in right finger(s) (principal)

== ENCOUNTER 2019-02-01 18:06 | Emergency (ER) | payer OTHER, MEDICAID ==
[2019-02-01] MEDS ORDERED: PATCH REMOVAL 1 EA PATCH TD ONE (18:27)
[2019-02-01] MEDS ORDERED: LIDOCAINE 4%/MENTHOL 1% PATCH TD ONE (18:27)
--- NOTE | 2019-02-01 18:27 | EDPHY ---
H & P Time Seen by Provider: 02/01/19 18:10 HPI/ROS: HPI Lower back pain. 73-year-old female by ambulance from the [facility] living [facility]. This patient has a history of chronic right-sided lower back pain. She reports that she is due to see her pain management physician at the [facility] this Sunday to get an injection of an unknown medication. She reports that she has had this injection in the past and it has been very helpful in managing her chronic right lower back pain. She reports that she has been taking Tylenol 3 at home with little relief. She is asking for some medication to help bridge her until she can be seen by her physician at the [facility] on Sunday. There is no history of acute trauma. She describes this pain as the same right lower back pain she has had for a long time. No bowel or bladder incontinence. No loss of sensation or weakness in her lower extremities. No fever. No abdominal pain. No lightheadedness. No history of malignancy. No other complaints. ROS: Constitutional: No fever, no chills. As above. Gastrointestinal: No abdominal pain, no vomiting. Genitourinary: No hematuria. No dysuria or increased frequency with urination. Musculoskeletal: As above. No neck pain. No myalgias or arthralgias. Skin: No rashes. Neurological: No focal weakness or altered sensation. Past medical history: Hernia repair, small-bowel obstruction, ileostomy with ileostomy reversal, type 2 diabetes, hypertension, anxiety, migraine headaches, vertigo, hyperlipidemia. Social history: As above. She is here by herself. No alcohol. Nonsmoker. Physical Exam: General Appearance: Alert, no distress. This patient is responding to questions appropriately and in full sentences. This patient appears well- hydrated and well-nourished. Eyes: Pupils equal and round no pallor or injection. No lid edema, erythema or injection. Back exam: She does have some tenderness on palpation over the right sacroiliac joint. There are no soft tissue changes. No associated edema, erythema, warmth noted. She has no midline thoracic, lumbar, sacral tenderness on palpation. She has a negative same side and cross-side straight leg raise test. She is neurologically intact in all myotomes in dermatomes of the bilateral lower extremities. Gastrointestinal: Abdomen is soft and nontender, no masses, bowel sounds normal. No focal tenderness at McBurney's point. No Acosta sign. Neurological: Motor sensory function is grossly intact. Cranial nerves are normal. Gait is normal. Skin: Warm and dry, no rashes. Musculoskeletal: Neck is supple and nontender. Extremities are symmetrical. All joints range without pain or impingement. Psychiatric: No agitation. No depression. Database: EKG: Imaging: Procedures: Emergency department course: Triage vital signs reviewed and are normal. She does not appear to be in any distress. No red flags on history and examination of her lower back. I will place a lidocaine patch over the right sacroiliac joint area of her pain. She will be given 1 Vicodin tablet and 30 mg of intramuscular Toradol for a 1 time dose of this medication. She has no history of peptic ulcer disease or renal dysfunction. Normal creatinine from review of her medical records from September of 2018. 7:50 p.m., the patient was re-evaluated, resting comfortably at this time. Repeat neurologic Assessment is nonfocal. She is feeling much better. Repeat examination of her back, she has no midline thoracic, lumbar, sacral tenderness on palpation. No tenderness on palpation of the bilateral sacroiliac joints. She feels comfortable going home at this time and I feel she is safe for discharge and follow up with her physician at the [facility] as scheduled. Return to emergency department precautions were reviewed with her. All of her questions were answered. She was discharged from the emergency department in good condition with a sober ride. Differential Diagnosis: The differential diagnosis on this patient includes but is not limited to chronic lower back pain, sacroiliitis. Epidural compression syndrome, epidural abscess, acute radiculopathy, acute traumatic injury, AAA unlikely. This represents a partial list of diagnoses considered. These considerations are based on history, physical exam, past history, reassessment and diagnostic testing. Smoking Status: Never smoked Constitutional: Initial Vital Signs Temperature (C) 36.7 C 02/01/19 18:06 Heart Rate 86 02/01/19 18:06 Respiratory Rate 16 02/01/19 18:06 Blood Pressure 128/80 H 02/01/19 18:06 O2 Sat (%) 98 02/01/19 18:06 O2 Delivery Mode Room Air Allergies/Adverse Reactions: diphenhydramine Allergy (Unknown, Unverified 09/11/18 23:41) Home Medications: Medication Instructions Recorded Aspirin EC [Aspirin EC 81 mg (*)] 81 mg PO DAILY 03/22/16 Atorvastatin Calcium [Lipitor 40 40 mg PO DAILY 03/22/16 mg (*)] Cholecalciferol Vit D3 [Vitamin D3 2,000 units PO DAILY 03/22/16 2000 units tab (OTC)] Fluticasone Nasal [Flonase Nasal 1 sprays NASAL DAILY PRN 03/22/16 [place]] Insulin Detemir [Levemir] 10 unit SQ HS 03/22/16 Meclizine HCl [Meclizine HCl 25 mg 25 mg PO DAILY PRN 03/22/16 (RX,OTC)] Loratadine 10 mg PO DAILY PRN 08/24/17 Meloxicam 15 mg PO HS 08/24/17 Vitamin B Complex [B Complex] 1 each PO DAILY 08/24/17 metFORMIN HCL [Glucophage 500 mg 500 mg PO BIDMEAL 08/24/17 (*)] Calcium Carbonate [Oyster Shell 500 mg PO DAILY 10/16/17 Calcium 500 mg (*)] Mirtazapine [Remeron] 15 mg PO HS 10/16/17 Ondansetron Odt [Zofran Odt 4 mg 4 mg PO Q4HRS PRN tab 10/24/17 (*)] Metformin HCl 09/12/18 Ibuprofen 02/01/19 Lexapro 02/01/19 Magnesium 02/01/19 Potassium Chloride 02/01/19 Topamax 02/01/19 Tramadol HCl 02/01/19 Tylenol W/Codeine 02/01/19 Medical Decision Making - Data Points Medications Given: Discontinued Medications Hydrocodone Bitart/Acetaminophen ([place] 5/325) 1 tab PO EDNOW ONE Stop: 02/01/19 18:32 Last Admin: 02/01/19 18:50 Dose: 1 tab Ketorolac Tromethamine (Toradol) 30 mg IM EDNOW ONE Stop: 02/01/19 18:31 Last Admin: 02/01/19 18:51 Dose: 30 mg Miscellaneous Information (Patch Removal) 1 ea TD DAILY21 ONE Stop: 02/01/19 18:28 Last Admin: 02/01/19 18:58 Dose: Not Given Miscellaneous Medication (Icy Hot Lidocaine/Menthol 4%/1% Patch) 1 patch TD EDNOW ONE Stop: 02/01/19 18:28 Last Admin: 02/01/19 18:51 Dose: 1 patch Departure - Departure Disposition: Home, Routine, Self-Care Clinical Impression: Lower back pain Condition: Good Instructions: Back Pain (ED) Additional Instructions: Read and follow provided instructions. Follow-up with your physician at the [facility] as scheduled this week. Continue taking her medications as prescribed. Return to the emergency department for worsening back pain, fever, loss of sensation or weakness in your legs, bowel or bladder incontinence or other serious concerns. Referrals: Patient,NotPresent [Unknown] - As per Instructions
[2019-02-01] MEDS ORDERED: KETOROLAC 30 MG/1 ML SDV IM ONE (18:30)
[2019-02-01] MEDS ORDERED: HYDROCODONE/APAP 5/325 TAB PO ONE (18:31)
[2019-02-01 19:46] VITALS: BP 106/60
== END 2019-02-01 20:15 | disposition home or self-care (01) ==
LOC: EDUNIT#
DX: M54.5 Low back pain (principal); E11.9 Type 2 diabetes mellitus without complications; Z79.4 Long term (current) use of insulin; I10 Essential (primary) hypertension
CPT/HCPCS: 96372; 99284; J1885

== ENCOUNTER 2019-03-01 22:38 | Observation (INO) | payer OTHER, MEDICAID ==
--- NOTE | 2019-03-01 22:48 | EDPHY ---
H & P Time Seen by Provider: 03/01/19 22:48 HPI/ROS: HPI CHIEF COMPLAINT: Cough. HISTORY OF PRESENT ILLNESS: Patient is a 73-year-old female she has a history of hypertension, diabetes, she resides at [facility], she presents emergency room increasing worsening cough over the last 24 hr. She denies this being productive. She complains of worsening cough. No fever. She reports to me the cough became more wet tonight. Increasing shortness of breath no chest pain. Past Medical History: Significant medical history for hypertension, diabetes Past Surgical History: Denies recent surgery Social History: Denies drugs alcohol tobacco Family History: Noncontributory ROS REVIEW OF SYSTEMS: 10 Systems were reviewed and negative with the exception of the elements mentioned in the history of present illness. Exam Constitutional triage nursing summary reviewed, vital signs reviewed, awake/ alert. Eyes normal conjunctivae and sclera, EOMI, PERRLA. HENT normal inspection, atraumatic, moist mucus membranes, no epistaxis, neck supple/ no meningismus, no raccoon eyes. Respiratory bronchitic sounding cough on exam. Cardiovascular rate normal, regular rhythm, no murmur, no edema, distal pulses normal. Gastrointestinal soft, non-tender, no rebound, no guarding, normal bowel sounds, no distension, no pulsatile mass. Genitourinary no CVA tenderness. Musculoskeletal no midline vertebral tenderness, full range of motion, no calf swelling, no tenderness of extremities, no meningismus, good pulses, neurovascularly intact. Skin pink, warm, & dry, no rash, skin atraumatic. Neurologic awake, alert and oriented x 3, AAOx3, moves all 4 extremities equally, motor intact, sensory intact, CN II-XII intact, normal cerebellar, normal vision, normal speech. Psychiatric normal mood/affect. Heme/Lymph/Immune no lymphadenopathy. Differential Diagnosis: Includes but is not limited to in a particular order bronchitis, pneumonia, dehydration mode viral pneumonia, bacterial pneumonia, electrolyte disturbance Medical Decision Making: Plan for this patient IV establishment, IV fluid bolus , chest x-ray, DuoNeb breathing treatment, blood cultures, lactic acid, re- evaluate. Re-evaluation: EKG interpretation by me on record in Imaging[facility] system. Impression time of EKG 2251 sinus rhythm rate of 86, no signs of acute ischemia. Patient continues to have wheezing faint throughout lung gao, inner bad bronchitic cough on exam. Complains of generalized weakness plan for admission. Respiratory panel pending. Chest x-ray shows no evidence pneumonia. Receiving IV fluids. Breathing treatment. Source: Patient - Personal History Tetanus Vaccine Date: 04/28/13 - Medical/Surgical History Hx Asthma: No Hx Chronic Respiratory Disease: No Hx Diabetes: Yes Hx Cardiac Disease: No Hx Renal Disease: Yes Hx Cirrhosis: No Hx Alcoholism: No Hx HIV/AIDS: No Hx Splenectomy or Spleen Trauma: No Other PMH: hernia repair, SBO 2/2 adhesions 2012,post op bowel leak, ileostomy, ileostomy reversal 2013,JORDY, DM type 2,HTN, ANXIETY, MIGRAINES, HYPERLIPIDEMIA, depression, VERTIGO, rest;ess leg syndrom - Social History Smoking Status: Never smoked Constitutional: Initial Vital Signs Temperature (C) 36.8 C 03/01/19 22:46 Heart Rate 92 03/01/19 22:46 Respiratory Rate 14 03/01/19 22:46 Blood Pressure 132/81 H 03/01/19 22:46 O2 Sat (%) 93 03/01/19 22:46 O2 Delivery Mode Room Air Allergies/Adverse Reactions: diphenhydramine Allergy (Unknown, Verified 03/01/19 22:48) Home Medications: Medication Instructions Recorded Aspirin EC [Aspirin EC 81 mg (*)] 81 mg PO DAILY 03/22/16 Atorvastatin Calcium [Lipitor 40 40 mg PO DAILY 03/22/16 mg (*)] Cholecalciferol Vit D3 [Vitamin D3 2,000 units PO DAILY 03/22/16 2000 units tab (OTC)] Insulin Detemir [Levemir] 10 unit SQ HS 03/22/16 Meclizine HCl [Meclizine HCl 25 mg 25 mg PO DAILY PRN 03/22/16 (RX,OTC)] Vitamin B Complex [B Complex] 1 each PO DAILY 08/24/17 Calcium Carbonate [Oyster Shell 500 mg PO DAILY 10/16/17 Calcium 500 mg (*)] Mirtazapine [Remeron] 15 mg PO HS 10/16/17 Metformin HCl 09/12/18 Lexapro 02/01/19 Magnesium 02/01/19 Potassium Chloride 02/01/19 Topamax 02/01/19 Tramadol HCl 02/01/19 Tylenol W/Codeine 02/01/19 Medical Decision Making - Diagnostics Imaging Results: Imaging Impressions Chest X-Ray 03/01/19 22:54 Impression: Clear lungs. Negative portable chest. - Data Points Laboratory Results: Laboratory Results 03/01/19 23:05 03/01/19 23:05 03/01/19 03/01/19 03/01/19 23:12 23:05 23:05 WBC RBC Hgb Hct MCV MCH MCHC RDW Plt Count MPV Neut % (Auto) Lymph % (Auto) Bowman % (Auto) Eos % (Auto) Baso % (Auto) Nucleat RBC Rel Count Absolute Neuts (auto) Absolute Lymphs (auto) Absolute Monos (auto) Absolute Eos (auto) Absolute Basos (auto) Absolute Nucleated RBC Immature Gran % Immature Gran # PT 11.6 SEC L SEC (12.0-15.0) INR 0.88 (0.83-1.16) APTT 30.9 SEC SEC (23.0-38.0) VBG Lactic Acid 1.6 mmol/L mmol/L (0.7-2.1) Sodium 139 mEq/L mEq/L (135-145) Potassium 4.3 mEq/L mEq/L (3.5-5.2) Chloride 103 mEq/L mEq/L (97-110) Carbon Dioxide 25 mEq/l mEq/l (22-31) Anion Gap 11 mEq/L mEq/L (6-14) BUN 19 mg/dL mg/dL (7-23) Creatinine 1.1 mg/dL H mg/dL (0.6-1.0) Estimated GFR 49 Glucose 118 mg/dL H mg/dL (70-100) Calcium 9.6 mg/dL mg/dL (8.5-10.4) Magnesium 1.9 mg/dL mg/dL (1.6-2.3) Total Bilirubin 0.3 mg/dL mg/dL (0.1-1.4) Conjugated Bilirubin 0.3 mg/dL mg/dL (0.0-0.5) Unconjugated Bilirubin 0.0 mg/dL mg/dL (0.0-1.1) AST 32 IU/L IU/L (14-46) ALT 37 IU/L IU/L (9-52) Alkaline Phosphatase 91 IU/L IU/L (38-126) POC Troponin I NT-Pro-B Natriuret Pep 67 pg/mL pg/mL (0-125) Total Protein 7.0 g/dL g/dL (6.3-8.2) Albumin 4.4 g/dL g/dL (3.5-5.0) 03/01/19 03/01/19 23:05 22:55 WBC 5.62 10^3/uL 10^3/uL (3.80-9.50) RBC 4.80 10^6/uL 10^6/uL (4.18-5.33) Hgb 13.8 g/dL g/dL (12.6-16.3) Hct 42.2 % % (38.0-47.0) MCV 87.9 fL fL (81.5-99.8) MCH 28.8 pg pg (27.9-34.1) MCHC 32.7 g/dL g/dL (32.4-36.7) RDW 14.1 % % (11.5-15.2) Plt Count 240 10^3/uL 10^3/uL (150-400) MPV 11.5 fL fL (8.7-11.7) Neut % (Auto) 37.1 % L % (39.3-74.2) Lymph % (Auto) 42.3 % % (15.0-45.0) Bowman % (Auto) 18.3 % H % (4.5-13.0) Eos % (Auto) 0.9 % % (0.6-7.6) Baso % (Auto) 1.2 % % (0.3-1.7) Nucleat RBC Rel Count 0.0 % % (0.0-0.2) Absolute Neuts (auto) 2.08 10^3/uL 10^3/uL (1.70-6.50) Absolute Lymphs (auto) 2.38 10^3/uL 10^3/uL (1.00-3.00) Absolute Monos (auto) 1.03 10^3/uL H 10^3/uL (0.30-0.80) Absolute Eos (auto) 0.05 10^3/uL 10^3/uL (0.03-0.40) Absolute Basos (auto) 0.07 10^3/uL 10^3/uL (0.02-0.10) Absolute Nucleated RBC 0.00 10^3/uL 10^3/uL (0-0.01) Immature Gran % 0.2 % % (0.0-1.1) Immature Gran # 0.01 10^3/uL 10^3/uL (0.00-0.10) PT INR APTT VBG Lactic Acid Sodium Potassium Chloride Carbon Dioxide Anion Gap BUN Creatinine Estimated GFR Glucose Calcium Magnesium Total Bilirubin Conjugated Bilirubin Unconjugated Bilirubin AST ALT Alkaline Phosphatase POC Troponin I 0.00 ng/mL ng/mL (0.00-0.08) NT-Pro-B Natriuret Pep Total Protein Albumin Medications Given: Discontinued Medications Albuterol/Ipratropium (Duoneb) 3 ml IH EDNOW ONE Stop: 03/01/19 22:55 Last Admin: 03/01/19 22:58 Dose: 3 ml Sodium Chloride (Ns) 1,000 mls @ 0 mls/hr IV EDNOW ONE; Wide Open PRN Reason: Protocol Stop: 03/01/19 22:54 Last Admin: 03/01/19 23:02 Dose: 1,000 mls Point of Care Test Results: Chemistry 03/01/19 22:55 POC Troponin I 0.00 ng/mL ng/mL (0.00-0.08) Departure - Departure Disposition: [facility] Inpatient Acute Clinical Impression: Acute bronchitis Condition: Fair Referrals: Patient,NotPresent [Unknown] - As per Instructions
[2019-03-01] MEDS ORDERED: NS 1,000 ML IV ONE (22:53)
[2019-03-01] MEDS ORDERED: IPRATROPIUM/ALBUTEROL 3 ML DEYVIAL IH ONE (22:54)
[2019-03-01] MEDS ORDERED: IPRATROPIUM/ALBUTEROL 3 ML DEYVIAL ONE (22:55)
[2019-03-01 23:11] LABS: PLATELET COUNT 240 10^3/uL (150-400)
[2019-03-01 23:25] LABS: INR 0.88 (0.83-1.16); PROTIME(PATIENT) 11.6 SEC (12.0-15.0)
[2019-03-02] MEDS ORDERED: ALBUTEROL 3 ML DEYVIAL IH PRN (00:31)
[2019-03-02] MEDS ORDERED: ONDANSETRON 4 MG/2 ML VIAL IVP PRN (00:31)
[2019-03-02] MEDS ORDERED: ONDANSETRON DISINTEGRATING 4 MG TAB PO PRN (00:31)
[2019-03-02] MEDS ORDERED: ACETAMINOPHEN 325 MG TAB PO PRN (00:31)
[2019-03-02] MEDS ORDERED: GUAIFENESIN/DM 10 ML UDCUP PO PRN (00:37)
--- NOTE | 2019-03-02 00:44 | PDGENHP ---
History and Physical - Chief Complaint Cough - History of Present Illness 73 yo F w/ NIDDM presents with cough and fatigue. The patient has had cough and fatigue develop over the last 2 days. The cough particularly has progressed over the course of today and has become debilitating. She denies sputum production, fever, or SOB. She has bilateral scleral injection as well. In the ED her evaluation is mostly reassuring. She is oxygenating well on RA and her CXR does not demonstrate an infiltrate. She is being admitted for observation and supportive care. Case discussed with ED physician Dr. Webb; records reviewed and summarized above. History Information - Allergies/Home Medication List Allergies/Adverse Reactions: diphenhydramine Allergy (Unknown, Verified 03/01/19 22:48) Home Medications: Aspirin EC [Aspirin EC 81 mg (*)] 81 mg PO DAILY 03/22/16 [Last Taken 10/15/17] Atorvastatin Calcium [Lipitor 40 mg (*)] 40 mg PO DAILY 03/22/16 [Last Taken 02/26] Cholecalciferol Vit D3 [Vitamin D3 2000 units tab (OTC)] 2,000 units PO DAILY [Last Taken 10/15/17] Insulin Detemir [Levemir] 10 unit SQ HS 03/22/16 [Last Taken 10/14/17] Meclizine HCl [Meclizine HCl 25 mg (RX,OTC)] 25 mg PO DAILY PRN 03/22/16 [Last Taken 08/23/17] Vitamin B Complex [B Complex] 1 each PO DAILY 08/24/17 [Last Taken 10/15/17] Calcium Carbonate [Oyster Shell Calcium 500 mg (*)] 500 mg PO DAILY 10/16/17 [ Last Taken 10/15/17] Mirtazapine [Remeron] 15 mg PO HS 10/16/17 [Last Taken 10/14/17] Metformin HCl 09/12/18 [Last Taken Unknown] Lexapro 02/01/19 [Last Taken Unknown] Magnesium 02/01/19 [Last Taken Unknown] Potassium Chloride 02/01/19 [Last Taken Unknown] Topamax 02/01/19 [Last Taken Unknown] Tramadol HCl 02/01/19 [Last Taken Unknown] Tylenol W/Codeine 02/01/19 [Last Taken Unknown] I have personally reviewed and updated: family history, medical history - Past Medical History Additional medical history: Melanoma right knee s/p resection. benign essential HTN. Diabetes II. Recurrent ventral hernias s/p multiple revisions, resection, ostomy and take town. Depression, anxiety, insomnia. chronic pain. neuropathy both feet. OA back. HLD. allergic rhinitis. recent SBO 09/2017 tx conservatively - Surgical History Additional surgical history: Numerous ventral hernia repairs with resultant colostomy, ileostomy, reversal in 2013. melenoma resection off R knee - Family History Additional family history: Sibling with CVA - Social History Smoking Status: Never smoked Additional social history: Resides at [facility]. however is currently in [facility]. COR - FULL. Patient Cousin Briseida Zhou is MDPOA Review of Systems Review of Systems: ROS: 10pt was reviewed & negative except for what was stated in HPI & below Physical Exam Physical Exam: Temp Pulse Resp BP Pulse Ox 36.7 C 91 14 128/67 H 90 L 03/02/19 00:21 03/02/19 00:21 03/02/19 00:21 03/02/19 00:21 03/02/19 00:21 Constitutional: appears nourished, uncomfortable Eyes: PERRL, scleral injection Ears, Nose, Mouth, Throat: moist mucous membranes, no oral mucosal ulcers Cardiovascular: regular rate and rhythym, no murmur, rub, or gallop Respiratory: no respiratory distress, inspiratory crackles Skin: warm, normal color Musculoskeletal: full muscle strength, no muscle tenderness Neurologic: AAOx3, CN II-XII Intact Psychiatric: interacting appropriately, not anxious Lab Data & Imaging Review 03/01/19 23:05 03/01/19 23:05 WBC 5.62 10^3/uL (3.80-9.50) 03/01/19 23:05 RBC 4.80 10^6/uL (4.18-5.33) 03/01/19 23:05 Hgb 13.8 g/dL (12.6-16.3) 03/01/19 23:05 Hct 42.2 % (38.0-47.0) 03/01/19 23:05 MCV 87.9 fL (81.5-99.8) 03/01/19 23:05 MCH 28.8 pg (27.9-34.1) 03/01/19 23:05 MCHC 32.7 g/dL (32.4-36.7) 03/01/19 23:05 RDW 14.1 % (11.5-15.2) 03/01/19 23:05 Plt Count 240 10^3/uL (150-400) 03/01/19 23:05 MPV 11.5 fL (8.7-11.7) 03/01/19 23:05 Neut % (Auto) 37.1 % (39.3-74.2) L 03/01/19 23:05 Lymph % (Auto) 42.3 % (15.0-45.0) 03/01/19 23:05 [place] % (Auto) 18.3 % (4.5-13.0) H 03/01/19 23:05 Eos % (Auto) 0.9 % (0.6-7.6) 03/01/19 23:05 Baso % (Auto) 1.2 % (0.3-1.7) 03/01/19 23:05 Nucleat RBC Rel Count 0.0 % (0.0-0.2) 03/01/19 23:05 Absolute Neuts (auto) 2.08 10^3/uL (1.70-6.50) 03/01/19 23:05 Absolute Lymphs (auto) 2.38 10^3/uL (1.00-3.00) 03/01/19 23:05 Absolute Monos (auto) 1.03 10^3/uL (0.30-0.80) H 03/01/19 23:05 Absolute Eos (auto) 0.05 10^3/uL (0.03-0.40) 03/01/19 23:05 Absolute Basos (auto) 0.07 10^3/uL (0.02-0.10) 03/01/19 23:05 Absolute Nucleated RBC 0.00 10^3/uL (0-0.01) 03/01/19 23:05 Immature Gran % 0.2 % (0.0-1.1) 03/01/19 23:05 Immature Gran # 0.01 10^3/uL (0.00-0.10) 03/01/19 23:05 PT 11.6 SEC (12.0-15.0) L 03/01/19 23:12 INR 0.88 (0.83-1.16) 03/01/19 23:12 APTT 30.9 SEC (23.0-38.0) 03/01/19 23:12 VBG Lactic Acid 1.6 mmol/L (0.7-2.1) 03/01/19 23:05 Sodium 139 mEq/L (135-145) 03/01/19 23:05 Potassium 4.3 mEq/L (3.5-5.2) 03/01/19 23:05 Chloride 103 mEq/L (97-110) 03/01/19 23:05 Carbon Dioxide 25 mEq/l (22-31) 03/01/19 23:05 Anion Gap 11 mEq/L (6-14) 03/01/19 23:05 BUN 19 mg/dL (7-23) 03/01/19 23:05 Creatinine 1.1 mg/dL (0.6-1.0) H 03/01/19 23:05 Estimated GFR 49 03/01/19 23:05 Glucose 118 mg/dL (70-100) H 03/01/19 23:05 Calcium 9.6 mg/dL (8.5-10.4) 03/01/19 23:05 Magnesium 1.9 mg/dL (1.6-2.3) 03/01/19 23:05 Total Bilirubin 0.3 mg/dL (0.1-1.4) 03/01/19 23:05 Conjugated Bilirubin 0.3 mg/dL (0.0-0.5) 03/01/19 23:05 Unconjugated Bilirubin 0.0 mg/dL (0.0-1.1) 03/01/19 23:05 AST 32 IU/L (14-46) 03/01/19 23:05 ALT 37 IU/L (9-52) 03/01/19 23:05 Alkaline Phosphatase 91 IU/L (38-126) 03/01/19 23:05 POC Troponin I 0.00 ng/mL (0.00-0.08) 03/01/19 22:55 NT-Pro-B Natriuret Pep 67 pg/mL (0-125) 03/01/19 23:05 Total Protein 7.0 g/dL (6.3-8.2) 03/01/19 23:05 Albumin 4.4 g/dL (3.5-5.0) 03/01/19 23:05 Imaging Review: Imaging Impressions Chest X-Ray 03/01/19 22:54 Impression: Clear lungs. Negative portable chest. Assessment & Plan Assessment: 73 yo F presents with cough and likely viral syndrome. Plan: 1. Cough - Suspect viral syndrome; 0/4 SIRS criteria currently and CXR ( personally reviewed/interpreted) without infiltrate. - Admit for observation - mIVF - APAP, anti-tussives PRN - Respiratory PCR and blood cultures pending 2. Diabetes - On insulin detemir 10 u qHS and metformin as an outpatient. - Continue home medications pending reconciliation - Monitor BG ACHS; D50 IV PRN for hypoglycemia Diet - Regular Code - Full Ppx - LMWH Dispo - Admit under observation status
[2019-03-02] MEDS ORDERED: NS 1,000 ML IV SCH (00:45)
[2019-03-02] MEDS ORDERED: D50W 25 GM/50 ML SYR IVP PRN (00:45)
[2019-03-02 04:35] LABS: PLATELET COUNT 209 10^3/uL (150-400)
[2019-03-02] MEDS: BENZONATATE 100 MG CAP PO PRN ×3 (07:59→20:54)
[2019-03-02] MEDS: ENOXAPARIN 40 MG/0.4 ML SYR SC SCH (08:00)
--- NOTE | 2019-03-02 11:15 | ASMTCMCOM ---
CM Note CM Note Notes: Pt is a 73 yo F who presents under obs for bronchitis. CM made multiple attempts to contact [facility] about getting pt discharged but they called the RN back and said that they cannot admit and would need pt to be evaluated by their staff before admitting back. They said they did not have anyone there today who can come evaluate pt today. Pt's care was discussed in rounds with MD and RN and discharge has been cancelled today due to pt not being able to be accepted at her Assisted Living Facility. Plan: Disharge Tomorrow to [facility] Independently. Date Signed: 03/02/2019 11:15 AM Electronically Signed By:LINO Coelho
--- NOTE | 2019-03-02 11:22 | ASMTLACE ---
LACE Acuity / Level of Answers: No Care: Did the patient have an inpatient admission? Comorbidities - select Answers: Diabetes (uncontrolled or all that apply controlled) Other Notes: HTN # of Emergency department Answers: 1-2 visits in the last 6 months Score: 3 Date Signed: 03/02/2019 11:21 AM Electronically Signed By:LINO Coelho
--- NOTE | 2019-03-02 11:51 | HOSPPROG ---
Hospitalist Progress Note Assessment/Plan: 73 yo F presents with cough and likely viral syndrome. Plan: 1. Cough - Suspect viral syndrome; 0/4 SIRS criteria currently and CXR ( personally reviewed/interpreted) without infiltrate. - APAP, anti-tussives PRN - Respiratory PCR negative and blood cultures pending 2. Diabetes - On insulin detemir 10 u qHS and metformin as an outpatient. - Continue home medications - Monitor BG ACHS; D50 IV PRN for hypoglycemia Diet - Regular Code - Full Ppx - LMWH Dispo - Pending evaluation by current residence Subjective: Pt reports no complaints this AM Objective: Vital Signs Temp Pulse Resp BP Pulse Ox 37.0 C 73 16 117/72 91 L 03/02/19 07:26 03/02/19 07:26 03/02/19 07:26 03/02/19 07:26 03/02/19 07:26 Laboratory Results 03/02/19 03:42 03/02/19 03:42 03/01/19 03/02/19 03/03/19 05:59 05:59 05:59 Intake Total 1480 Output Total 600 Balance 880 PT 11.6 SEC (12.0-15.0) L 03/01/19 23:12 INR 0.88 (0.83-1.16) 03/01/19 23:12 - Physical Exam Constitutional: chronically ill appearing Eyes: PERRL Ears, Nose, Mouth, Throat: moist mucous membranes Cardiovascular: regular rate and rhythym Respiratory: no respiratory distress, clear to auscultation Gastrointestinal: normoactive bowel sounds Skin: warm Neurologic: AAOx3 Psychiatric: interacting appropriately ICD10 Worksheet Patient Problems: Problems Problem Status Onset Acute bronchitis Acute Abdominal pain Acute Adynamic ileus Acute Common bile duct dilation Acute Diabetes Acute Headache Acute Transaminitis Acute
[2019-03-02] MEDS ORDERED: MECLIZINE HCL 25 MG TAB PO PRN (13:12)
[2019-03-02] MEDS ORDERED: DICLOFENAC SODIUM 1% 100 GM GEL TP PRN (13:12)
[2019-03-02] MEDS ORDERED: FLUTICASONE NASAL 120 SPRAYS/16 GM MDI EACHNARE PRN (13:12)
[2019-03-02] MEDS ORDERED: IBUPROFEN 200 MG TAB PO PRN (13:12)
[2019-03-02] MEDS ORDERED: ACETAMINOPHEN/CODEINE 300/30MG TAB PO PRN (13:12)
[2019-03-02] MEDS ORDERED: MIRTAZAPINE 15 MG TAB PO SCH (21:00)
[2019-03-02] MEDS ORDERED: NON-FORMULARY NEW DRUG (Insulin Detemir [Levemir] 10 UNIT) SQ SCH (21:00)
[2019-03-02] MEDS ORDERED: TOPIRAMATE 25 MG TAB PO SCH (21:00)
[2019-03-02] MEDS ORDERED: ESCITALOPRAM OXALATE 10 MG TAB PO SCH (21:00)
[2019-03-02] MEDS ORDERED: ATORVASTATIN CALCIUM 40 MG TAB PO SCH (21:00)
[2019-03-02] MEDS ORDERED: INSULIN GLARGINE 100 UNITS/ML UNIT SC SCH (21:00)
[2019-03-03 07:05] VITALS: BP 146/81
[2019-03-03] MEDS: ENOXAPARIN 40 MG/0.4 ML SYR SC SCH (08:04)
[2019-03-03] MEDS ORDERED: TOPIRAMATE 25 MG TAB PO SCH (09:00)
[2019-03-03] MEDS ORDERED: ASPIRIN EC 81 MG TAB PO SCH (09:00)
[2019-03-03] MEDS ORDERED: CETIRIZINE 10 MG TAB PO SCH (09:00)
[2019-03-03] MEDS ORDERED: TRAMADOL HCL 100 MG PO SCH (09:00)
--- NOTE | 2019-03-03 11:08 | ASMTCMCOM ---
CM Note CM Note Notes: Yessenia from [facility] stopped by to evaluate pt. Pt is allowed to come back. CM faxed over (F#: [phone]) updated med list. CM set up transportation w/ [facility]. CM available for changes. Plan: [facility] [place] Date Signed: 03/03/2019 10:46 AM Electronically Signed By:LINO Sol
[2019-03-03] MEDS: BENZONATATE 100 MG CAP PO PRN (11:53)
--- NOTE | 2019-03-03 14:14 | PDDCSUM ---
Discharge Summary Discharge Summary: Date of Admission: 03/01/2019 Date of Discharge: 03/03/2019 Consults: n/A Procedures: CXR, Resp PCR FOllowuP: PCP Hospital Course Problem List: 73 yo F presents with cough and likely viral syndrome. Plan: 1. Cough - Suspect viral syndrome; 0/4 SIRS criteria and CXR without infiltrate. - APAP, anti-tussives PRN - Respiratory PCR negative and blood cultures NGTD 2. Diabetes - On insulin detemir 10 u qHS and metformin as an outpatient. - Continue home medications - Monitor BG ACHS; D50 IV PRN for hypoglycemia
--- NOTE | 2019-03-05 09:14 | ASDISCHSUM ---
Discharge Information Plan Status:Home with No Needs Medically Cleared to Leave:03/05/2019 Discharge Date:03/03/2019 12:56 PM D/C Disposition:Assisted Living ADT D/C Disposition:Home, Routine, Self-Care Projected Discharge Date:03/02/2019 11:00 AM Transportation at D/C:Wheelchair Van Discharge Delay Reason: Follow-Up Date:03/02/2019 11:00 AM Discharge Slot: Final Diagnosis: Placement Information Referral Type:Assisted Living Residence Referral ID:[id number] Provider Name:Bijan Fuentesjewel Address 1:[address] [facility] Phone Number: Address 2:[place] Fax Number: [facility]:[place] Selection Factors: State:[place] Patient Contact Information Contact Name:MARTIKJ Relationship:Cousin Address: Work Phone: City: [facility] Phone: [facility] Code: Email: Financial Information Financial Class:Medicare Advantage Plans Primary Plan Desc:[facility] [employer] Primary Plan Number:[id number] Secondary Plan Desc:MED[employer] [place] Secondary Plan Number:[id number] Assessment Information [facility] Progress Note CM Note CM Note Notes: Pt is a 73 yo F who presents under obs for bronchitis. CM made multiple attempts to contact [facility] about getting pt discharged but they called the RN back and said that they cannot admit and would need pt to be evaluated by their staff before admitting back. They said they did not have anyone there today who can come evaluate pt today. Pt's care was discussed in rounds with MD and RN and discharge has been cancelled today due to pt not being able to be accepted at her Assisted Living Facility. Plan: Disharge Tomorrow to [facility] Independently. Date Signed: 03/02/2019 11:15 AM Electronically Signed By:LINO Coelho LACE LACE Acuity / Level of Answers: No Care: Did the patient have an inpatient admission? Comorbidities - select Answers: Diabetes (uncontrolled or all that apply controlled) Other Notes: HTN # of Emergency department Answers: 1-2 visits in the last 6 months Score: 3 Date Signed: 03/02/2019 11:21 AM Electronically Signed By:LINO Coelho [facility] CM Progress Note CM Note CM Note Notes: Yessenia from [facility] stopped by to evaluate pt. Pt is allowed to come back. CM faxed over (F#: [phone]) updated med list. CM set up transportation w/ [facility]. CM available for changes. Plan: Bijan [place] Date Signed: 03/03/2019 10:46 AM Electronically Signed By:LINO Sol Intervention Information
== END 2019-03-03 12:56 | disposition home or self-care (01) ==
LOC: EDUNIT# → EDBD → F2W 03-02 00:58
PROVIDERS: ADMIT Student in an Organized Health Care Education/Training Program; ATTEND Internal Medicine
DX: R05 Cough (principal); E11.9 Type 2 diabetes mellitus without complications; E86.9 Volume depletion, unspecified; Z79.4 Long term (current) use of insulin; I10 Essential (primary) hypertension; F41.9 Anxiety disorder, unspecified; E78.5 Hyperlipidemia, unspecified; F32.9 Major depressive disorder, single episode, unspecified; Z85.820 Personal history of malignant melanoma of skin
CPT/HCPCS: 71045; 96360; 96372; 99285; G0378; J1650; J1815; 84484-ER

== ENCOUNTER → 2019-05-09 | Outpatient (CLI) | payer OTHER, MEDICAID | LOC: FIMAGING 12:47 ==